=== PATIENT | female | born 1955 | race Caucasian/White ===

== ENCOUNTER 2016-12-08 19:43 | Emergency (ER) | payer OTHER ==
[~2016-12-08] VITALS: Ht 167.6 cm; Wt 83.9 kg
[~2016-12-08 19:43] MED LIST: ALPR0.5T PO; ASPI325T11 PO; ASPI81TA2 PO; ATOR40TA PO; Amoxicillin PO; CARV3.122 PO; CEPH-264 PO; CLOP75TA27 PO; LISI-338 PO; LOSA1TAB16 PO; LOSA50TA6 PO; Metoprolol Tartrate PO; NITR100C6 PO; NYST1000 SWSW; PHEN-318 PO; PRAS10TA4 PO; SIMV40TA3 PO; TICA90TA PO
[2016-12-08 20:42] VITALS: BP 135/81
[2016-12-08 20:58] LABS: BILIRUBIN,URINE MODERATE (NEG); GLUCOSE,URINE NEGATIVE (NEG); NITRITE,URINE NEGATIVE (NEG); PH,URINE 5.5; PROTEIN,URINE 100 mg/dL (NEG-TRACE)
[2016-12-08 21:04] LABS: BACTERIA,URINE 0 /HPF (0-FEW); RBC,URINE TNTC /HPF (0-2); SQUAMOUS EPITHELIAL CELL,UR OCC /LPF
[2016-12-08] MEDS ORDERED: CIPR250T30 PO (22:17)
[2016-12-08] MEDS ORDERED: PHEN100T82 PO (22:17)
[2016-12-08] MEDS ORDERED: CIPROFLOXACIN HCL 250 MG TABLET PO ONE (22:30)
--- NOTE | 2016-12-08 22:41 | ED.ADGEN ---
Past Medical History Past Medical History: Anxiety, High Cholesterol, Hypertension, [place], Migraines, Other Additional Past Medical Histor: ulcer, stemi Past Surgical History: Hip Replacement, Hysterectomy, Other Additional Past Surgical Histo: right ankle, jaw, cardiac stent Alcohol Use: None Drug Use: None Adult General Chief Complaint Chief Complaint: BLOOD IN URINE HPI HPI Patient is a 61 year old woman, history of CAD status post HI, hypertension, hyperlipidemia, who presents to the emergency department with complaint of hematuria, times one day, with concern for UTI. Patient is had a urinary tract infection previously, she states at that time she did have more of a burning sensation, but has had blood and urine previously. She states it started with "looking darker than usual" over the past 2 days, with development of red blood in her urine today. She complains of increased frequency, some urgency, denies any abdominal pain, any back pain, any weakness numbness or tingling. No injuries. States she is having some mild pain in the crease of her thigh, but denies any other symptoms or complaints. No fevers or chills, no respiratory or GI distress. Review of Systems Review of Systems Constitutional: Denies fever or chills. [] Eyes: Denies change in visual acuity. [] HENT: Denies nasal congestion or sore throat. [] Respiratory: Denies cough or shortness of breath. [] Cardiovascular: Denies chest pain or edema. [] GI: Denies abdominal pain, nausea, vomiting, bloody stools or diarrhea. [] : Denies dysuria. Frequency, urgency, and hematuria. Musculoskeletal: Denies back pain or joint pain. [] Integument: Denies rash. [] Neurologic: Denies headache, focal weakness or sensory changes. [] Endocrine: Denies polyuria or polydipsia. [] Lymphatic: Denies swollen glands. [] Psychiatric: Denies depression or anxiety. [] Current Medications Current Medications Current Medications Medications (Trade) Dose Ordered Sig/Luci Start Time Stop Time Status Last Admin Dose Admin Ciprofloxacin (Cipro) 250 mg 1X ONCE 12/08/16 22:30 12/08/16 22:30 DC 12/08/16 22:25 250 MG Allergies Allergies Allergies Coded Allergies Type Severity Reaction Last Updated Verified No Known Drug Allergies 05/25/14 No Physical Exam Physical Exam Constitutional: Well developed, well nourished, no acute distress, non-toxic appearance. [] HENT: Normocephalic, atraumatic, bilateral external ears normal, oropharynx moist, no oral exudates, nose normal. [] Eyes: PERRLA, EOMI, conjunctiva normal, no discharge. [] Neck: Normal range of motion, no tenderness, supple, no stridor. [] Cardiovascular:Heart rate regular rhythm, no murmur , S1, S2, rubs or gallops. [ ] Lungs & Thorax: Bilateral breath sounds clear to auscultation, no wheezing, rhonchi, rales. No chest wall tenderness or crepitus. [] Abdomen: Bowel sounds normal, soft, no tenderness, no rebound, rigidity, no guarding, no masses, no pulsatile masses. [] Skin: Warm, dry, no erythema, no rash. [] Back: No tenderness, no CVA tenderness. [] Extremities: No tenderness, no cyanosis, no clubbing, ROM intact, no edema. [] Neurologic: Alert and oriented X 3, normal motor function, normal sensory function, no focal deficits noted. [] Psychologic: Affect normal, judgement normal, mood normal. [] Current Patient Data Vital Signs Vital Signs Date Time Temp Pulse Resp B/P Pulse Ox O2 Delivery O2 Flow Rate FiO2 12/08/16 20:42 98.0 79 18 96 Room Air 98.0 Lab Values Laboratory Tests Test 12/08/16 20:40 Urine Collection Type Unknown Urine Color Red Urine Clarity Turbid Urine pH 5.5 Urine Specific [place] 1.015 Urine Protein 100mg/dL (NEG-TRACE) Urine Glucose (UA) Negativemg/dL (NEG) Urine Ketones (Stick) 15mg/dL (NEG) Urine Blood Large (NEG) Urine Nitrite Negative (NEG) Urine Bilirubin Moderate (NEG) Urine Urobilinogen Dipstick 1.0mg/dL (0.2 mg/dL) Urine Leukocyte Esterase Moderate (NEG) Urine RBC Tntc/HPF (0-2) Urine WBC 1-4/HPF (0-4) Urine Squamous Epithelial Cells Occ/LPF Urine Bacteria 0/HPF (0-FEW) Urine Mucus Slight/LPF EKG EKG Not indicated. [] Radiology/Procedures Radiology/Procedures Not indicated. [] Course & Med Decision Making Course & Med Decision Making Pertinent Labs and Imaging studies reviewed. (See chart for details) When I evaluate the patient, she stated that she was just waiting for urine to come back, was denying any other symptoms, she states that she was previously treated for UTI, and that "you guys gave me draw antibiotics and I got a letter in the mail and they had to change it 2 weeks later". I discussed the utility of urine cultures with the patient, she states that this time that she is anxious to leave the emergency department, and would like to be treated empirically for a urinary tract infection, states that she can follow with her primary care provider, and will return for concerning symptoms that they develop. Patient does take Effient, and eyes any other areas of bleeding, bruising, or complaints. Urinalysis was negative for bacteria, positive for blood and leuk esterase, patient states that she would like to be treated prophylactically as stated, therefore patient given first dose of ciprofloxacin in the ED, she states that she previously received Keflex, but "it didn't work last time", although when I reviewed her cultures that shows that there was sensitivity to this medication, she states that she does not want to take Keflex again, and therefore Cipro was given, first dose in the ED without issue , given a prescription for 5 days of treatment, along with Pyridium, given clear and detailed return instructions with which she voiced understanding and agreement, to follow-up with her primary care provider for test of cure. Patient voiced understanding and agreement, was discharged home in stable condition. Dragon Disclaimer Dragon Disclaimer This electronic medical record was generated, in whole or in part, using a voice recognition dictation system. Departure Impression: Primary Impression: Urinary tract infection Disposition: HOME, SELF-CARE Condition: IMPROVED Scripts Phenazopyridine Hcl (Pyridium)100 Mg [id number] Mg PO TID PRN PAIN #9 TAB Prov:LORENZO JOHNSON DO 12/08/16 Ciprofloxacin Hcl (Cipro)250 Mg [id number] Mg PO BID #10 TAB Prov:LORENZO JOHNSON DO 12/08/16 Problem Qualifiers Primary Impression: Urinary tract infection Urinary tract infection type: acute cystitis Hematuria presence: with hematuria Qualified Code: N30.01 - Acute cystitis with hematuria LORENZO JOHNSON DO Dec 08, 2016 22:41
[2016-12-21] MEDS ORDERED: ACET-704 PO (12:26)
== END 2016-12-08 22:26 | disposition home or self-care (01) ==
LOC: ER 19:43
DX: N30.01 Acute cystitis with hematuria (principal); I25.2 Old myocardial infarction; I25.10 Atherosclerotic heart disease of native coronary artery without angina pectoris; I10 Essential (primary) hypertension; E78.00 Pure hypercholesterolemia, unspecified; E78.5 Hyperlipidemia, unspecified; F41.9 Anxiety disorder, unspecified; G43.909 Migraine, unspecified, not intractable, without status migrainosus; Z95.5 Presence of coronary angioplasty implant and graft; Z90.710 Acquired absence of both cervix and uterus
CPT/HCPCS: 81001; 87086; 99284

== ENCOUNTER 2016-12-13 02:59 | Inpatient (IN) | payer OTHER ==
[~2016-12-13] VITALS: Ht 167.6 cm; Wt 83.9 kg
[~2016-12-13 02:59] MED LIST changes: +CIPR250T30 PO; +PHEN100T82 PO
[2016-12-13] MEDS: HYDROMORPHONE 2 MG/ML VIAL. IV/SQ PRN ×3 (03:41→04:27)
[2016-12-13 03:46] LABS: BASO # 0.1 x10^3/uL (0.0-0.2); BASO % 1 % (0-3); EOS % 1 % (0-3); HEMOGLOBIN 15.2 g/dL (12.0-15.5); LYMPH # 3.2 x10^3/uL (1.0-4.8); LYMPH % 31 % (24-48); MEAN CORPUSCULAR HEMOGLOBIN 32 pg (25-35); MEAN CORPUSCULAR HGB CONC 33 g/dL (31-37); MEAN CORPUSCULAR VOLUME 95 fL (79-100); MONO % 8 % (0-9); NEUT % 59 % (31-73); PLATELET COUNT 240 x10^3/uL (140-400); RED BLOOD COUNT 4.83 x10^6/uL (3.50-5.40); RED CELL DISTRIBUTION WIDTH 14.1 % (11.5-14.5); WHITE BLOOD COUNT 10.4 x10^3/uL (4.0-11.0)
[2016-12-13 03:52] LABS: BILIRUBIN,URINE LARGE (NEG); GLUCOSE,URINE NEGATIVE (NEG); PH,URINE 5.5; PROTEIN,URINE >=300 mg/dL (NEG-TRACE)
[2016-12-13 03:54] LABS: PROTHROMBIN TIME PATIENT 12.6 SEC (11.7-14.0)
[2016-12-13 03:56] LABS: BACTERIA,URINE 0 /HPF (0-FEW); NITRITE,URINE NEGATIVE (NEG); RBC,URINE TNTC /HPF (0-2); SQUAMOUS EPITHELIAL CELL,UR MOD /LPF; WBC,URINE >40 /HPF (0-4)
[2016-12-13 03:58] LABS: CALCIUM 9.4 mg/dL (8.5-10.1); CREATININE 0.8 mg/dL (0.6-1.0); GFR 73.4; POTASSIUM 3.3 mmol/L (3.5-5.1)
[2016-12-13] MEDS ORDERED: IOHEXOL 300 MG/ML 75 ML VIAL IV ONE (04:00)
[2016-12-13] MEDS ORDERED: IV NORMAL SALINE 1000ML BAG 1,000 ML IV SCH ×2 (04:00→04:56)
[2016-12-13] MEDS ORDERED: ONDANSETRON PF 4 MG/2 ML VIAL. IV ONE ×2 (04:00→05:15)
[2016-12-13] MEDS ORDERED: CONTRAST GIVEN MC PRN (04:00)
[2016-12-13 04:03] LABS: ALBUMIN 3.6 g/dL (3.4-5.0); ALBUMIN/GLOBULIN RATIO 0.9 (1.0-1.7); TOTAL BILIRUBIN 0.2 mg/dL (0.2-1.0); TOTAL PROTEIN 7.5 g/dL (6.4-8.2)
--- NOTE | 2016-12-13 04:40 | RAD ---
INDICATION: Abdomen pain. COMPARISON: July 16, 2015 TECHNIQUE: Axial CT images obtained through the abdomen and pelvis. Intravenous contrast was utilized. One or more of the following individualized dose reduction techniques were utilized for this examination: 1. Automated exposure control; 2. Adjustment of the mA and/or kV according to patient size; 3. Use of iterative reconstruction technique. FINDINGS: There is some cystic changes at the lung bases. Coronary artery calcific atherosclerosis partially seen. Severe calcific atherosclerosis with ectasia infrarenal abdominal aorta. No intrahepatic bile duct dilation. Multiple low-attenuation lesions of liver with largest in right lobe measuring 26 millimeters and likely cystic. No peripancreatic edema. Spleen unremarkable. Multiple low-attenuation lesions of bilateral kidneys measuring up to 33 millimeters. The larger ones have the appearance of cysts but some are too small to characterize on this exam. Right-sided hydronephrosis and proximal hydroureter with 4 millimeter right mid ureter stone No definite evidence of small bowel obstruction. Bladder largely decompressed. Postoperative changes left hip with arthroplasty. Appendix does not appear grossly inflamed. Degenerative changes of spine. IMPRESSION: Right-sided hydronephrosis with right ureter stone. There is also some enhancement of the urothelium on the right which could be seen with a region of inflammation. Multiple low-attenuation lesions of the liver and kidneys. The largest ones have the appearance of cysts but some are too small to characterize. Calcific atherosclerosis. Cystic changes at lung bases could be from chronic lung disease Electronically signed by: Carmelo Palencia (Dec 13, 2016 04:38:45)
--- NOTE | 2016-12-13 04:47 | PHYS DOC ---
Past Medical History Past Medical History: Anxiety, High Cholesterol, Hypertension, [place], Migraines, Other Additional Past Medical Histor: ulcer, stemi Past Surgical History: Hip Replacement, Hysterectomy, Other Additional Past Surgical Histo: right ankle, jaw, cardiac stent Alcohol Use: None Drug Use: None Adult General Chief Complaint Chief Complaint: FLANK PAIN HPI HPI Patient is a 61 year old female who presents with complaint of severe right- sided flank pain. The patient states that her pain has been worsening over the past 4-5 days. Patient states that it became severe earlier this morning. Patient currently rates her pain as 10 out of 10. Patient states that she started passing gross blood in her urine. Patient denies any fevers. Patient was diagnosed with urinary tract infection 4 days ago and started on Cipro. Patient states that despite starting on this medication her symptoms have been worsening. Patient follows a Dr. Alves for primary care. The patient stated that her primary doctor had scheduled her to have a CT scan this Monday, however patient states that her symptoms are too severe to wait until Monday. Review of Systems Review of Systems Constitutional: Denies fever or chills [] Eyes: Denies change in visual acuity, redness, or eye pain [] HENT: Denies nasal congestion or sore throat [] Respiratory: Denies cough or shortness of breath [] Cardiovascular: No additional information not addressed in HPI [] GI: Nausea, vomiting, denies abdominal pain, bloody stools or diarrhea [] : Hematuria [] Musculoskeletal: Right flank pain [] Integument: Denies rash or skin lesions [] Neurologic: Denies headache, focal weakness or sensory changes [] Endocrine: Denies polyuria or polydipsia [] Current Medications Current Medications Current Medications Medications (Trade) Dose Ordered Sig/[facility] Start Time Stop Time Status Last Admin Dose Admin Hydromorphone HCl 1 mg 1 mg PRN Q15MIN PRN 12/13/16 03:30 12/14/16 03:29 12/13/16 04:27 1 MG Info (Do NOT chart on this entry -- for MONITORING) 1 each PRN DAILY PRN 12/13/16 04:00 12/15/16 03:59 Iohexol (Omnipaque 300 Mg/ml) 75 ml 1X ONCE 12/13/16 04:00 12/13/16 04:01 DC 12/13/16 04:10 75 ML Ondansetron HCl (Zofran) 4 mg 1X ONCE 12/13/16 05:15 12/13/16 05:16 Sodium Chloride (Iv Sodium Chloride 0.9% 1000ml Bag) 1,000 ml @ 1,000 mls/hr Q1H 12/13/16 04:00 12/13/16 04:59 12/13/16 03:41 1,000 MLS/HR Allergies Allergies Allergies Coded Allergies Type Severity Reaction Last Updated Verified No Known Drug Allergies 05/25/14 No Physical Exam Physical Exam Constitutional: Alert, afebrile, appears in severe discomfort. [] HENT: Normocephalic, atraumatic, bilateral external ears normal, oropharynx moist, no oral exudates, nose normal. [] Eyes: PERRLA, EOMI, conjunctiva normal, no discharge. [] Neck: Normal range of motion, no tenderness, supple, no stridor. [] Cardiovascular: Tachycardia, regular rhythm, no murmur [] Lungs & Thorax: Bilateral breath sounds clear to auscultation [] Abdomen: Bowel sounds normal, soft, no tenderness, no masses, no pulsatile masses. [] Skin: Warm, dry, no erythema, no rash. [] Back: No midline tenderness, right CVA tenderness to palpation, no flank ecchymosis. [] Extremities: No tenderness, no cyanosis, no clubbing, ROM intact, no edema. [] Neurologic: Alert and oriented X 3, normal motor function, normal sensory function, no focal deficits noted. [] Current Patient Data Vital Signs Vital Signs Date Time Temp Pulse Resp B/P Pulse Ox O2 Delivery O2 Flow Rate FiO2 12/13/16 04:27 14 92 Room Air 12/13/16 03:07 98.1 93 201/76 98.1 Lab Values Laboratory Tests Test 12/13/16 03:08 White Blood Count 10.4x10^3/uL (4.0-11.0) Red Blood Count 4.83x10^6/uL (3.50-5.40) Hemoglobin 15.2g/dL (12.0-15.5) Hematocrit 46.0% (36.0-47.0) Mean Corpuscular Volume 95fL (79-100) Mean Corpuscular Hemoglobin 32pg (25-35) Mean Corpuscular Hemoglobin Concent 33g/dL (31-37) Red Cell Distribution Width 14.1% (11.5-14.5) Platelet Count 240x10^3/uL (140-400) Neutrophils (%) (Auto) 59% (31-73) Lymphocytes (%) (Auto) 31% (24-48) Monocytes (%) (Auto) 8% (0-9) Eosinophils (%) (Auto) 1% (0-3) Basophils (%) (Auto) 1% (0-3) Neutrophils # (Auto) 6.1x10^3uL (1.8-7.7) Lymphocytes # (Auto) 3.2x10^3/uL (1.0-4.8) Monocytes # (Auto) 0.9x10^3/uL (0.0-1.1) Eosinophils # (Auto) 0.1x10^3/uL (0.0-0.7) Basophils # (Auto) 0.1x10^3/uL (0.0-0.2) Prothrombin Time 12.6SEC (11.7-14.0) Prothrombin Time INR 1.0 (0.8-1.1) PTT 30SEC (24-38) Urine Collection Type Unknown Urine Color Red Urine Clarity Cloudy Urine pH 5.5 Urine Specific [place] 1.025 Urine Protein >=300mg/dL (NEG-TRACE) Urine Glucose (UA) Negativemg/dL (NEG) Urine Ketones (Stick) 15mg/dL (NEG) Urine Blood Large (NEG) Urine Nitrite Negative (NEG) Urine Bilirubin Large (NEG) Urine Urobilinogen Dipstick 1.0mg/dL (0.2 mg/dL) Urine Leukocyte Esterase Moderate (NEG) Urine RBC Tntc/HPF (0-2) Urine WBC >40/HPF (0-4) Urine Squamous Epithelial Cells Mod/LPF Urine Bacteria 0/HPF (0-FEW) Urine Mucus Slight/LPF Sodium Level 145mmol/L (136-145) Potassium Level 3.3mmol/L (3.5-5.1) L Chloride Level 107mmol/L (98-107) Carbon Dioxide Level 31mmol/L (21-32) Anion Gap 7 (6-14) Blood Urea Nitrogen 11mg/dL (7-20) Creatinine 0.8mg/dL (0.6-1.0) Estimated GFR (Cockcroft-Gault) 73.4 BUN/Creatinine Ratio 14 (6-20) Glucose Level 112mg/dL (70-99) H Calcium Level 9.4mg/dL (8.5-10.1) Total Bilirubin 0.2mg/dL (0.2-1.0) Aspartate Amino Transferase (AST) 15U/L (15-37) Alanine Aminotransferase (ALT) 22U/L (14-59) Alkaline Phosphatase 55U/L (46-116) Total Protein 7.5g/dL (6.4-8.2) Albumin 3.6g/dL (3.4-5.0) Albumin/Globulin Ratio 0.9 (1.0-1.7) L Laboratory Tests 12/13/16 03:08 Laboratory Tests 12/13/16 03:08 EKG EKG Not performed [] Radiology/Procedures Radiology/Procedures [facility] [address] [place] [address] IMAGING REPORT Signed PATIENT: TRIP ROCHA ACCOUNT: [id number] : 1955 LOCATION: ER AGE: 61 SEX: F EXAM STATUS: REG ER ORD. PHYSICIAN: JESS MARTINEZ MD REASON: hematuria, right flank pain PROCEDURE: ABD PELV W/ IV CONTRAST ONLY INDICATION: Abdomen pain. COMPARISON: July 16, 2015 TECHNIQUE: Axial CT images obtained through the abdomen and pelvis. Intravenous contrast was utilized. One or more of the following individualized dose reduction techniques were utilized for this examination: 1. Automated exposure control; 2. Adjustment of the mA and/or kV according to patient size; 3. Use of iterative reconstruction technique. FINDINGS: There is some cystic changes at the lung bases. Coronary artery calcific atherosclerosis partially seen. Severe calcific atherosclerosis with ectasia infrarenal abdominal aorta. No intrahepatic bile duct dilation. Multiple low-attenuation lesions of liver with largest in right lobe measuring 26 millimeters and likely cystic. No peripancreatic edema. Spleen unremarkable. Multiple low-attenuation lesions of bilateral kidneys measuring up to 33 millimeters. The larger ones have the appearance of cysts but some are too small to characterize on this exam. Right-sided hydronephrosis and proximal hydroureter with 4 millimeter right mid ureter stone No definite evidence of small bowel obstruction. Bladder largely decompressed. Postoperative changes left hip with arthroplasty. Appendix does not appear grossly inflamed. Degenerative changes of spine. IMPRESSION: Right-sided hydronephrosis with right ureter stone. There is also some enhancement of the urothelium on the right which could be seen with a region of inflammation. Multiple low-attenuation lesions of the liver and kidneys. The largest ones have the appearance of cysts but some are too small to characterize. Calcific atherosclerosis. Cystic changes at lung bases could be from chronic lung disease Electronically signed by: Eveline Alves (Dec 13, 2016 04:38:45) DICTATED and SIGNED BY: EVELINE ALVES MD DATE: 12/13/16 0438 CC: JESS MARTINEZ MD; VIANCA ALVES MD ~ [] Course & Med Decision Making Course & Med Decision Making Pertinent Labs and Imaging studies reviewed. (See chart for details) Patient was given multiple doses of Dilaudid as well as IV fluids and Zofran. Despite treatment, the patient continues to have severe pain and continues to have vomiting. Patient's CT does show a right mid ureteral stone that is causing hydronephrosis. Due to uncontrolled symptoms and presence of urinary tract infection, the patient will need to be admitted to the hospital for continued treatment. I spoke with Dr. Alves who accepted care patient in hospital. A consult was placed to Dr. Reich to follow with patient in hospital. Dragon Disclaimer Dragon Disclaimer This electronic medical record was generated, in whole or in part, using a voice recognition dictation system. Departure Departure Impression: Primary Impression: Right ureteral stone Additional Impressions: Urinary tract infection Intractable pain Disposition: 09 ADMITTED INPATIENT Admitting Physician: Vianca Alves Condition: GUARDED Referrals: VIANCA ALVES MD (PCP) Problem Qualifiers Additional Impressions: Urinary tract infection Urinary tract infection type: site unspecified Hematuria presence: with hematuria Qualified Code: N39.0 - Urinary tract infection, site not specified JESS MARTINEZ MD Dec 13, 2016 04:47
[2016-12-13] MEDS ORDERED: ACETAMINOPHEN 325 MG TABLET. PO PRN (05:00)
[2016-12-13] MEDS ORDERED: FENTANYL PF 100 MCG/2 ML VIAL. IV PRN (05:00)
--- NOTE | 2016-12-13 05:20 | ACF ---
Admit Criteria Forms Admit Criteria Forms Admit Criteria Forms RENAL COLIC AND KIDNEY STONES Clinical Indications for Admission to Inpatient Care ( Place 'X' for any and all applicable criteria): Admission is indicated for ANY ONE of the following (1)(2)(3)(4): [X]I. Inpatient admission required rather than observation care (Also use Renal Colic and Kidney Stones: Observation Care Criteria as appropriate) because of ANY ONE of the following: [X]a) Severe pain requiring acute inpatient management [X]b) Urinary tract infection identified [ ]c) Vomiting that is severe or persistent [ ]d) IV fluid required rather than oral rehydration to replace significant ongoing (eg, for greater than 24 hours) losses (greater than 200 mL/hr or 3 L/m2 per day) [ ]e) Percutaneous or open drainage (eg, abscess, biliary tract) procedures [ ]f) Other condition, treatment or monitoring requiring inpatient admission [ ]II. Impending acute renal failure [ ]III. Bilateral obstruction [ ]IV. Single kidney with obstruction [ ]V. Transplanted kidney with obstruction [ ]. Possible open surgical procedure needed (eg, pyonephrosis, stone removal not amendable to other means) [ ]VII. Hemodynamic instability Extended stay beyond goal length of stay may be needed for(2)(3)(31): [ ]a) Failed initial stone removal (32) [ ]b) Pyonephrosis [ ]c) Obstructive uropathy with urinary tract infection [ ]d) Procedure complications [ ]e) Comorbidities (22) The original [employer] content created by [employer] has been revised. The portions of the content which have been revised are identified through the use of italic text or in bold, and [facility] has neither reviewed nor approved the modified material. All other unmodified content is copyright [facility]. Please see references footnoted in the original [employer] edition 2016 SHELLY VINES Dec 13, 2016 05:20
[2016-12-13] MEDS ORDERED: CEFTRIAXONE 1GM IVPB FOR OMNI 50 ML IV ONE (05:30)
[2016-12-13 07:00] VITALS: BP 134/81
--- NOTE | 2016-12-13 07:52 | PDOC ---
Provider Note Provider Note [id number] VIANCA ALVES MD Dec 13, 2016 07:52
[2016-12-13] MEDS: PRASUGREL 10 MG TABLET. PO SCH (08:00)
[2016-12-13] MEDS: CARVEDILOL 3.125 MG TABLET PO SCH ×2 (08:00→17:37)
--- NOTE | 2016-12-13 08:58 | HP ---
ADMIT DATE: 12/13/2016 CHIEF COMPLAINT: Flank pain. HISTORY OF PRESENT ILLNESS: A 61-year-old white female who had coronary artery stents placed about 3 months ago at [place] and has been doing well until she developed painless gross hematuria about 3 or 4 days prior to admission. She was seen in the ER once and was placed on antibiotics, but hematuria persisted. She was seen in the office the day prior to admission and treatment was continued and a CT angiogram of her kidneys was scheduled but came into the ER with severe abrupt onset of right flank pain. She was found to have a CT finding of mid right ureteral stone, 4 mm or so in size with moderate right hydronephrosis. She has gotten IV pain medication overnight and her pain seems to be improved at this time. PAST MEDICAL HISTORY: Two stents in place. MEDICATIONS: She is on Effient and aspirin as well as other cardiac meds. PAST SURGICAL HISTORY: Total abdominal hysterectomy, hip replacement, and cholecystectomy. SOCIAL HISTORY: Quit smoking some months ago after her heart disease was found, nondrinker, . FAMILY HISTORY: Unremarkable. REVIEW OF SYSTEMS: No other known problems. OBJECTIVE: ENT: All within normal limits. NECK: No masses, nodes, or bruits. LUNGS: Clear. CARDIOVASCULAR: Regular rate. No irregular beat or murmur or tachycardia. BREASTS: Not examined. ABDOMEN: Soft, benign, nontender. BACK: Tender to palpation and percussion over the right CVA, but not the left side. No masses are felt. EXTREMITIES: Decreased pedal pulses. No joint or skin lesions or nail bed findings. NEUROLOGIC: Physiologic. GENITOURINARY AND RECTAL: Deferred. IMPRESSION: Right midureteral stone with secondary hydronephrosis and hematuria aggravated by antiplatelet drugs, aspirin and Effient for coronary artery disease and stent placement. PLAN: IV hydration, Flomax, urologic consultation, and supportive care. Pain is better now and it is possible that the stone has moved and even broken up and may be lessening the symptoms. VIANCA ALVES MD DR: JOHN/teodoro JOB#: [id number] / [id number]
[2016-12-13] MEDS: TAMSULOSIN 0.4 MG CAP.ER.24H. PO SCH ×2 (09:00→10:26)
[2016-12-13] MEDS: ASPIRIN 81 MG TAB.CHEW PO SCH (09:00)
[2016-12-13] MEDS: LISINOPRIL 5 MG TABLET. PO SCH (09:00)
[2016-12-13] MEDS ORDERED: ATORVASTATIN CALCIUM 40 MG TABLET. PO SCH (09:00)
[2016-12-13] MEDS ORDERED: ASPI81TA9 PO (09:28)
--- NOTE | 2016-12-13 09:53 | EKG ---
[facility] [address] [place] [address] Test Date: 2016-12-13 Test Time: 03:20:21 Pat Name: TRIP ROCHA Department: Room: [facility] Gender: F Obstetrical Tech: : 1955 Requested By: VIANCA ALVES Order Number: [id number] Reading MD: Liat Olivera Measurements Intervals [place] Rate: 86 P: 52 [place]: 148 QRS: 15 QRSD: 92 T: 92 QT: 348 QTc: 419 Interpretive Statements SINUS RHYTHM T ABNORMALITY IN ANTEROLATERAL LEADS ABNORMAL ECG Electronically Signed On 12-17-2016 19:39:13 [employer] by Liat Olviera
--- NOTE | 2016-12-13 10:18 | PDOC ---
Provider Note Provider Note Urology: Consult dictated 4mm Right ureteral calculus Plan: Medical expulsive treatment, IV hydration and Flomax KUB in AM Thanks MOHSEN VANN DO Dec 13, 2016 10:18
[2016-12-13] MEDS: POTASSIUM CL 20MEQ D5-0.45NACL 1,000 ML IV SCH ×2 (10:27→17:32)
[2016-12-13 11:00] VITALS: BP 103/43
[2016-12-13 11:48] VITALS: BP 103/43
[2016-12-13 15:00] VITALS: BP 88/56
[2016-12-13] MEDS ORDERED: BUTALB/APAP/CAFEIN 50/325/40MG TABLET. PO PRN (19:00)
[2016-12-13 19:25] VITALS: BP 107/46
[2016-12-13] MEDS: ATORVASTATIN CALCIUM 40 MG TABLET. PO SCH (19:55)
[2016-12-13] MEDS: ONDANSETRON PF 4 MG/2 ML VIAL. IV PRN (19:55)
[2016-12-13] MEDS: KETOROLAC TROMETHAMINE 30 MG/ML SYRINGE. IV PRN (21:46)
[2016-12-13 23:25] VITALS: BP 114/60
[2016-12-14] MEDS: POTASSIUM CL 20MEQ D5-0.45NACL 1,000 ML IV SCH ×6 (01:23→21:57)
[2016-12-14] MEDS: HYDROMORPHONE 2 MG/ML VIAL. IV PRN ×2 (02:25→05:23)
[2016-12-14] MEDS: ONDANSETRON PF 4 MG/2 ML VIAL. IV PRN (02:53)
[2016-12-14 03:30] VITALS: BP 141/83
[2016-12-14] MEDS: KETOROLAC TROMETHAMINE 30 MG/ML SYRINGE. IV PRN ×3 (03:42→17:51)
--- NOTE | 2016-12-14 03:42 | CONS ---
DATE OF CONSULTATION: 12/13/2016 CHIEF COMPLAINT: Acute right flank pain, right ureteral calculus (4 mm). HISTORY OF PRESENT ILLNESS: A 61-year-old female admitted through the Emergency Room with acute right flank pain. She has had a history of some intermittent gross hematuria. She is on blood thinners including Effient and aspirin. The patient denies previous history of kidney stones. PAST MEDICAL HISTORY: Includes coronary artery disease. She recently had coronary artery stents placed. ALLERGIES: No known drug allergies. PAST SURGICAL HISTORY: The patient had hip replacement on the left. She has had hysterectomy, right ankle surgery, surgery on her jaw and more recently cardiac stents placed. The patient states that she has some intermittent blood in her urine for several days. She also was treated for urinary tract infection on an outpatient basis. REVIEW OF SYSTEMS: A 14-point review of systems performed, most significant as per HPI, as stated above. CURRENT MEDICATIONS: Reviewed. PHYSICAL EXAMINATION: GENERAL DESCRIPTION: A 61-year-old female. She is resting comfortably at this time with the benefit of IV hydration and analgesia. VITAL SIGNS: Stable. ABDOMEN: Soft, mild right flank discomfort to palpation, radiating to the right pelvis. The left flank was normal to palpation. There are no abdominal masses, guarding, or rigidity. No suprapubic tenderness. EXTREMITIES: Good range of motion. Negative for cyanosis or edema. LABORATORY DATA: The patient's hemoglobin 15.2, hematocrit 46.0, white blood cell count 10.4. Electrolytes shows potassium low at 3.3, her BUN is 11, creatinine 0.8, glucose 112. Urinalysis, heme colored, cloudy, nitrite negative, large bilirubin, moderate leukocytes, too numerous to count red blood cells, greater than 40 white blood cells, no significant bacteria. X-RAY STUDIES: CT scan of the abdomen and pelvis with IV contrast revealed [id number] right-sided hydronephrosis, dilated proximal hydroureter with a 4-mm calculus located about the level of the iliac crest. No other renal abnormalities. IMPRESSION: 1. Acute right ureteral colic - improved. 2. A 4-mm calculus, lower right ureter. PLANS: 1. IV hydration. Orders have been written. 2. Flomax has been started. 3. I think this stone should pass with medical therapy. We will monitor her progress. I told the patient if did not pass spontaneously, that , we would perform ureteroscopy, stone extraction. She appears to understand and is agreeable. MOHSEN VANN DO DR: YARELI/teodoro JOB#: [id number] / [id number]
[2016-12-14] MEDS: ALPRAZOLAM 0.5 MG TABLET PO PRN (03:48)
[2016-12-14 04:09] LABS: BASO % 0 % (0-3); EOS % 2 % (0-3); HEMATOCRIT 41.5 % (36.0-47.0); HEMOGLOBIN 13.4 g/dL (12.0-15.5); LYMPH # 2.7 x10^3/uL (1.0-4.8); LYMPH % 33 % (24-48); MEAN CORPUSCULAR HEMOGLOBIN 31 pg (25-35); MEAN CORPUSCULAR HGB CONC 32 g/dL (31-37); MEAN CORPUSCULAR VOLUME 96 fL (79-100); MONO % 10 % (0-9); NEUT % 56 % (31-73); PLATELET COUNT 202 x10^3/uL (140-400); RED BLOOD COUNT 4.31 x10^6/uL (3.50-5.40); RED CELL DISTRIBUTION WIDTH 13.9 % (11.5-14.5); WHITE BLOOD COUNT 8.3 x10^3/uL (4.0-11.0)
[2016-12-14 04:30] LABS: CALCIUM 8.5 mg/dL (8.5-10.1); CREATININE 0.8 mg/dL (0.6-1.0); GFR 73.4
[2016-12-14 07:00] VITALS: BP 135/51
[2016-12-14] MEDS: PRASUGREL 10 MG TABLET. PO SCH ×3 (08:00→12:06)
[2016-12-14] MEDS ORDERED: HYDROMORPHONE 2 MG/ML VIAL. IV PRN (08:00)
--- NOTE | 2016-12-14 08:00 | PDOC ---
Provider Note Provider Note still has Rcva pain , less now- R CVA and RLQ not tender now- very anxious re pain/nausea- kub pending , cont iv hydration, add loraz re nausea/sedation VIANCA ALVES MD Dec 14, 2016 08:00
[2016-12-14] MEDS: ASPIRIN 81 MG TAB.CHEW PO SCH ×3 (08:39→11:21)
[2016-12-14] MEDS: TAMSULOSIN 0.4 MG CAP.ER.24H. PO SCH (08:40)
[2016-12-14] MEDS: LISINOPRIL 5 MG TABLET. PO SCH (08:40)
[2016-12-14] MEDS: CARVEDILOL 3.125 MG TABLET PO SCH ×2 (08:41→17:00)
[2016-12-14] MEDS: CEFTRIAXONE SODIUM 1 GM in IV NORMAL SALINE 50ML 50 ML IV SCH (08:52)
--- NOTE | 2016-12-14 09:33 | RAD ---
EXAM: Abdomen one view. HISTORY: Right ureteral calculus. COMPARISON: CT 12/13/2016. FINDINGS: A frontal view of the abdomen is obtained. The right mid ureteral calculus seen on prior CT is not well-demonstrated. There is a right triangular calcification in the right hemipelvis which may be indicated for progress of the calculus or another density. There are postsurgical changes in both adnexa and surgical clips in both lower quadrants. There are no distended small bowel loops. There is gas distally. Stool throughout the colon is consistent with constipation. A left total hip arthroplasty is noted. IMPRESSION: 1. The right ureteral calculus is not clearly seen by radiographs. It may now be within the right distal ureter. Correlate for persistent symptoms. 2. Correlate for constipation.
[2016-12-14 11:00] VITALS: BP 136/91
[2016-12-14] MEDS: PROCHLORPERAZINE 10 MG/2 ML VIAL. IV PRN (11:21)
--- NOTE | 2016-12-14 13:27 | PDOC ---
Provider Note Provider Note Urology: continues to have right flank pain and hematuria (Effient) KUB- calculus not easily seen Plan: patient on schedule for tomorrow, Cysto, R retrograde, Ureteroscopy-stone extraction, possible stent Hold Effient Laxatives today MOHSEN VANN DO Dec 14, 2016 13:27
[2016-12-14 15:00] VITALS: BP 134/85
[2016-12-14] MEDS ORDERED: POLYETHYLENE GLYCOL 3350 17 GM PACKET. PO PRN (17:00)
[2016-12-14] MEDS: LORAZEPAM 2 MG/ML VIAL IV PRN (17:52)
[2016-12-14 19:00] VITALS: BP 118/76
[2016-12-14] MEDS: ATORVASTATIN CALCIUM 40 MG TABLET. PO SCH (21:05)
[2016-12-14 23:00] VITALS: BP 134/60
[2016-12-15] VITALS (7 sets, daily range): BP systolic 123–144; BP diastolic 62–79
[2016-12-15] MEDS: PROCHLORPERAZINE 10 MG/2 ML VIAL. IV PRN ×4 (01:32→19:38)
[2016-12-15] MEDS: KETOROLAC TROMETHAMINE 30 MG/ML SYRINGE. IV PRN ×4 (01:32→19:38)
[2016-12-15] MEDS: LORAZEPAM 2 MG/ML VIAL IV PRN ×4 (01:32→19:37)
[2016-12-15] MEDS: POTASSIUM CL 20MEQ D5-0.45NACL 1,000 ML IV SCH ×2 (05:13→11:59)
[2016-12-15] MEDS: CEFTRIAXONE SODIUM 1 GM in IV NORMAL SALINE 50ML 50 ML IV SCH (05:14)
--- NOTE | 2016-12-15 06:09 | PDOC ---
Provider Note Provider Note Urology: Patient scheduled for Cystoscopy left retrograde, ureteroscopy stone extraction , possible left ureteral stent placement. Scheduled for about 1:00 today. MOHSEN VANN DO Dec 15, 2016 06:09
[2016-12-15] MEDS ORDERED: PROCHLORPERAZINE 10 MG/2 ML VIAL. IV PRN (07:00)
[2016-12-15] MEDS ORDERED: HYDROMORPHONE 2 MG/ML VIAL. IV PRN (07:00)
[2016-12-15] MEDS ORDERED: ONDANSETRON PF 4 MG/2 ML VIAL. IV PRN (07:00)
[2016-12-15] MEDS ORDERED: FENTANYL PF 100 MCG/2 ML VIAL. IV PRN ×2 (07:00)
[2016-12-15] MEDS ORDERED: IV RINGERS,LACTATED 1000ML 1,000 ML IV SCH (07:00)
[2016-12-15] MEDS ORDERED: MORPHINE SULFATE 2 MG/ML DISP.SYRIN. IV PRN (07:00)
[2016-12-15] MEDS ORDERED: LIDOCAINE 1% 1 ML SYRINGE. ID PRN (07:00)
--- NOTE | 2016-12-15 07:18 | PDOC ---
Provider Note Provider Note vss, no temp, pain still RLQ, stone likely in UVJ- for cysto today, home after VIANCA ALVES MD Dec 15, 2016 07:18
--- NOTE | 2016-12-15 07:19 | DISCH ---
DISCHARGE INSTRUCTIONS Condition on Discharge Condition on Discharge: Stable Activity After Discharge Activity Instructions for Disc: No restrictions Diet after Discharge Diet after Discharge: Low Sodium 4 gm Follow-Up Follow up with: as scheduled VIANCA ALVES MD Dec 15, 2016 07:19
[2016-12-15] MEDS: PRASUGREL 10 MG TABLET. PO SCH (08:00)
[2016-12-15] MEDS: TAMSULOSIN 0.4 MG CAP.ER.24H. PO SCH (08:20)
[2016-12-15] MEDS: LISINOPRIL 5 MG TABLET. PO SCH (08:20)
[2016-12-15] MEDS: CARVEDILOL 3.125 MG TABLET PO SCH ×2 (08:21→17:55)
[2016-12-15] MEDS: ASPIRIN 81 MG TAB.CHEW PO SCH (08:28)
[2016-12-15] MEDS ORDERED: IOHEXOL 300 MG/ML 50 ML VIAL. IV ONE (13:30)
--- NOTE | 2016-12-15 14:41 | PDOC ---
BRIEF OPERATIVE NOTE Date: Dec 15, 2016 Pre-Op Diagnosis Right flank pain, right ureteral calculus Post-Op Diagnosis same, impacted right ureteral calculus Procedure Performed Cystoscopy right retrograde, rigid ureteroscopy, holmium laser lithotripsy partial stone extraction, placement of ureteral stent. Surgeon Damir Anesthesia Type: General Blood Loss Minimal Specimens Obtained partial stone sent for stone analysis Findings Impacted right ureteral calculus, with ureteral edema Complications tolerated well, ureteral stent placed Additional Remarks will have some hematuria due to Effient MOHSEN VANN DO Dec 15, 2016 14:41
[2016-12-15] MEDS: POTASSIUM CL 20MEQ-0.45% NACL 1,000 ML IV SCH (15:31)
[2016-12-15] MEDS: ALPRAZOLAM 0.5 MG TABLET PO PRN (17:57)
[2016-12-15] MEDS: PHENAZOPYRIDINE 200 MG TABLET. PO PRN (19:37)
[2016-12-15] MEDS: ATORVASTATIN CALCIUM 40 MG TABLET. PO SCH (19:37)
--- NOTE | 2016-12-15 20:31 | OP ---
DATE OF SURGERY: 12/15/2016 PREOPERATIVE DIAGNOSES: Right flank pain, right ureteral calculus. POSTOPERATIVE DIAGNOSES: Right flank pain, right ureteral calculus. PROCEDURE: Cystoscopy, right retrograde pyelogram, ureteroscopy with holmium laser lithotripsy, partial stone extraction, placement of indwelling right ureteral stent. SURGEON: Mohsen Vann DO ANESTHESIA: General. INDICATIONS AND JUDGMENT: This is a 61-year-old female who was admitted with acute right flank pain, CT scan revealed a 4- to 5-mm calculus in the right ureter. She was placed on IV hydration and analgesia, but failed to pass the stone spontaneously, though it did migrate down into the pelvis. It was felt that she would benefit from ureteroscopy, stone extraction, possible stent placement. The procedure was explained to the patient, she appeared to understand and was agreeable. OPERATION AND PROCEDURE: The patient had IV antibiotics on board. Therefore, she was taken to the operating room and placed on the operating room table, given a general anesthetic and then placed in a dorsolithotomy position, since we do not have a cystoscopy table. Perineum was prepped and draped in sterile fashion. A C-arm was moved into position for the purpose of fluoroscopy. Cystoscopy was performed. The bladder was examined. There was no calculi within the bladder. She has a moderate cystocele. The right ureteral orifice was identified, it was cannulated with an 8-Georgian cone-tip ureteral catheter. Contrast was injected. The calculus was seen in the ureter approximately 3-4 cm above the right ureterovesical junction. The obstruction was low grade in nature. The contrast drained pretty readily. I then passed a 0.035 Glidewire up the right ureteral orifice, past the stone with some difficulty. Following that, I balloon-dilated the ureteral orifice for 3 minutes. I then advanced the rigid Puente ureteroscope up the right ureter alongside the Glidewire. The stone was encountered. I attempted to remove it, but it was too large to remove intact. I was therefore forced to utilize our inhouse holmium laser, which is of poor quality. I advanced the laser fiber through the working channel of the ureteroscope. The guiding red light is so bright that it obscures the stone, it is hard to see the stone when you perform the laser. I was able to laser about one-third to one-half of the stone and remove it and that portion was sent to lab. I was unable to laser the remaining portion of the stone due to the extreme red guiding light, which prevented me from seeing the stone satisfactorily and the fact that she has been on Effient and now she is having some bleeding, which made it difficult to see that stone as well. Therefore, it was felt that the best option at this point was to place an indwelling right ureteral stent and come back another day. I advanced a 4.8 x 24 cm double-J ureteral stent over the Glidewire past the stone and up into the renal pelvis. Positioning appeared to be satisfactory; therefore, the wire was removed leaving the stent in place. Due to the heme-colored urine, I left a Cuellar catheter in place to dependent drainage bag. Plans will be to keep the patient overnight, remove the Cuellar catheter in the morning, allow her to go home tomorrow, bring her back in about 1 week to remove the rest of the stone. MOHSEN VANN DO DR: YARELI/teodoro JOB#: [id number] / [id number]
[2016-12-16] MEDS: POTASSIUM CL 20MEQ-0.45% NACL 1,000 ML IV SCH ×2 (00:02→07:00)
[2016-12-16] MEDS: LORAZEPAM 2 MG/ML VIAL IV PRN (00:04)
[2016-12-16] MEDS: KETOROLAC TROMETHAMINE 30 MG/ML SYRINGE. IV PRN ×2 (00:04→06:19)
[2016-12-16] MEDS: PROCHLORPERAZINE 10 MG/2 ML VIAL. IV PRN ×2 (00:05→06:19)
[2016-12-16 03:16] VITALS: BP 150/85
[2016-12-16] MEDS: CEFTRIAXONE SODIUM 1 GM in IV NORMAL SALINE 50ML 50 ML IV SCH (06:09)
[2016-12-16] MEDS: PHENAZOPYRIDINE 200 MG TABLET. PO PRN ×2 (06:19→08:51)
[2016-12-16 07:00] VITALS: BP 134/65
--- NOTE | 2016-12-16 07:58 | PDOC ---
Provider Note Provider Note [id number] VIANCA ALVES MD Dec 16, 2016 07:58
[2016-12-16] MEDS: PRASUGREL 10 MG TABLET. PO SCH (08:27)
[2016-12-16] MEDS: ASPIRIN 81 MG TAB.CHEW PO SCH (08:27)
[2016-12-16 08:28] VITALS: BP 134/65
[2016-12-16] MEDS: CARVEDILOL 3.125 MG TABLET PO SCH (08:28)
[2016-12-16] MEDS: LISINOPRIL 5 MG TABLET. PO SCH (08:28)
--- NOTE | 2016-12-16 13:01 | PDOC ---
Provider Note Provider Note Urology: Home today with right ureteral stent Rx's June Lozano 5 Will schedule Ureteroscopy in about 10 days MOHSEN VANN DO Dec 16, 2016 13:01
--- NOTE | 2016-12-16 19:46 | DS ---
DATE OF DISCHARGE: 12/16/2016 HOSPITAL SUMMARY: A 61-year-old white female came in with flank pain and hematuria, was suspicious for a stone. CT scan showed a right mid ureteral stone with secondary hydronephrosis, stone being about 4 mm in size. Urine culture had no growth. Hemoglobin was 15.2 on admission and 13.4 the next day. Chemistry profile unremarkable and urine showed protein and blood. She was given IV fluids, Flomax and IV pain medications, but failed, has shown improvement in her stones. Dr. Reich performed cystoscopy, stone extraction and ureteral stent placement and part of the stone was sent for analysis. At this time, she is stable, vital signs are normal, no fever and able to be discharged and followed as an outpatient. FINAL DIAGNOSIS: Right ureteral stone with secondary hydronephrosis. OPERATIONS AND PROCEDURES: Ureteral stone extraction and stent placement. COMPLICATIONS: None. CONSULTATIONS: Dr. Reich. DISPOSITION: Home meds remain the same plus any meds per Dr. Reich. Follow up with Dr. Reich for ____ removal in 1-2 weeks and I will see her on an as needed basis. PROGNOSIS: Good. VIANCA ALVES MD DR: JOHN/nts JOB#: [id number] / [id number]
== END 2016-12-16 13:50 | disposition home or self-care (01) | DRG 669 ==
LOC: ER 02:59 → 6 SOUTH 04:50
PROVIDERS: ADMIT Family Medicine; ATTEND Family Medicine
PROC: 0T768DZ Dilation of Right Ureter with Intraluminal Device, Via Natural or Artificial Opening Endoscopic (ICD-10-PCS; 2016-12-15)
PROC: BT1D1ZZ Fluoroscopy of Right Kidney, Ureter and Bladder using Low Osmolar Contrast (ICD-10-PCS; 2016-12-15)
PROC: 0TC68ZZ Extirpation of Matter from Right Ureter, Via Natural or Artificial Opening Endoscopic (ICD-10-PCS; principal; 2016-12-15 13:45)
DX: N13.2 Hydronephrosis with renal and ureteral calculous obstruction (principal); E78.00 Pure hypercholesterolemia, unspecified; I10 Essential (primary) hypertension; I25.10 Atherosclerotic heart disease of native coronary artery without angina pectoris; N39.0 Urinary tract infection, site not specified; Z96.649 Presence of unspecified artificial hip joint; F41.9 Anxiety disorder, unspecified; G43.909 Migraine, unspecified, not intractable, without status migrainosus; Z95.5 Presence of coronary angioplasty implant and graft; Z90.710 Acquired absence of both cervix and uterus; I25.2 Old myocardial infarction
CPT/HCPCS: 36415; 74000; 74177; 74420; 80048; 80053; 81001; 85027; 85610; 85730; 87086; 93005; 96361; 96365; 96375; 96376; C1769; C2617; J0690; J0696; J0780; J1170; J1885; J2060; J2405; J3010; J7030; Q9967; 99285-25

== ENCOUNTER 2017-01-10 06:21 | Day surgery (SDC) | payer OTHER ==
[~2017-01-10] VITALS: Ht 167.6 cm; Wt 81.6 kg
[~2017-01-10 06:21] MED LIST changes: +ACET-704 PO; +ASPI81TA9 PO; +DEXAMETHASONE SOD PHOS 20 MG/5 ML VIAL. ONE; +FENTANYL PF 100 MCG/2 ML VIAL. IV PRN; +HYDROMORPHONE 2 MG/ML VIAL. IV PRN; +IV RINGERS,LACTATED 1000ML 1,000 ML IV SCH; +LIDOCAINE 1% 1 ML SYRINGE. ID PRN; +LIDOCAINE 2% 100 MG/5 ML DISP.SYRIN. ONE; +MORPHINE SULFATE 2 MG/ML DISP.SYRIN. IV PRN; +ONDANSETRON PF 4 MG/2 ML VIAL. IV PRN; +ONDANSETRON PF 4 MG/2 ML VIAL. ONE; +PROCHLORPERAZINE 10 MG/2 ML VIAL. IV PRN; +PROPOFOL 20 ML IV ONE
[2017-01-10] MEDS ORDERED: LIDOCAINE 1% 1 ML SYRINGE. ID PRN (07:00)
[2017-01-10] MEDS ORDERED: PROCHLORPERAZINE 10 MG/2 ML VIAL. IV PRN (07:00)
[2017-01-10] MEDS ORDERED: FENTANYL PF 100 MCG/2 ML VIAL. IV ONE (07:00)
[2017-01-10] MEDS ORDERED: FENTANYL PF 100 MCG/2 ML VIAL. IV PRN (07:00)
[2017-01-10] MEDS ORDERED: MORPHINE SULFATE 2 MG/ML DISP.SYRIN. IV PRN (07:00)
[2017-01-10] MEDS ORDERED: HYDROMORPHONE 2 MG/ML VIAL. IV PRN (07:00)
[2017-01-10] MEDS ORDERED: IV RINGERS,LACTATED 1000ML 1,000 ML IV SCH (07:00)
[2017-01-10] MEDS ORDERED: ONDANSETRON PF 4 MG/2 ML VIAL. IV PRN (07:00)
[2017-01-10] MEDS ORDERED: IOHEXOL 300 MG/ML 50 ML VIAL. ONE (07:54)
[2017-01-10] MEDS ORDERED: MIDAZOLAM HCL 2 MG/2 ML VIAL. ONE (08:10)
[2017-01-10] MEDS ORDERED: EPHEDRINE PF IN SALINE 50 MG/5 ML DISP.SYRIN. IV ONE (08:40)
[2017-01-10] MEDS ORDERED: FUROSEMIDE 40 MG/4 ML VIAL ONE (08:46)
[2017-01-10] MEDS ORDERED: KETOROLAC 30 MG/ML SYRINGE FOR OR. INJ ONE (09:13)
[2017-01-10] MEDS ORDERED: SEVOFLURANE 61 TO 120 MINUTES. IH ONE (09:16)
--- NOTE | 2017-01-10 09:33 | DISCH ---
DISCHARGE INSTRUCTIONS Condition on Discharge Condition on Discharge: Stable Activity After Discharge Activity Instructions for Disc: Activity as tolerated Driving Instructions after Dis: Do not drive today Diet after Discharge Diet after Discharge: Regular Additional Diet Restrictions: Drink 8-10 12oz glasses of water per day Checks after Discharge DC Comment: May resume Effient tomorrow Contacting the DR. after DC Call your doctor for: Concerns you may have Follow-Up Follow up with: 4 weeks MOHSEN VANN DO Jan 10, 2017 09:33
--- NOTE | 2017-01-10 09:36 | PDOC ---
BRIEF OPERATIVE NOTE Date: Jan 10, 2017 Pre-Op Diagnosis right ureteral calculus Post-Op Diagnosis same Procedure Performed Cysto-stent removal, ureteroscopy holmium laser lithotripsy, NO stent replacement Surgeon Damir Anesthesia Type: General Specimens Obtained None sent to lab Findings same small stone fragments in ureter Complications None Additional Remarks Tolerated well MOHSEN VANN DO Jan 10, 2017 09:36
[2017-01-10] MEDS: FENTANYL PF 100 MCG/2 ML VIAL. IV PRN ×2 (09:57→10:05)
--- NOTE | 2017-01-10 10:05 | OP ---
DATE OF SURGERY: 01/10/2017 PREOPERATIVE DIAGNOSIS: Right ureteral calculus. POSTOPERATIVE DIAGNOSIS: Right ureteral calculus. PROCEDURE: Cystoscopy stent removal, rigid ureteroscopy with holmium laser lithotripsy, stone extraction. SURGEON: Mohsen Vann D.O. ANESTHESIA: General. INDICATIONS AND JUDGMENT: A 61-year-old female with a history of a right ureteral calculus. She previously underwent ureteroscopy with holmium laser lithotripsy on 12/15/2016, but there was difficulty with equipment particularly with the laser. The bright light on the laser obscured the stone. At that time, only partially stone was removed due to lack of adequate vision, due to this faulty laser. The stent was placed at the end of that procedure. The patient was brought back today to remove the remaining portion of the right ureteral calculus for now using a laser from control operator surgical. The procedure was explained to the patient. She appeared to understand and was agreeable. DESCRIPTION OF PROCEDURE: The patient was preloaded with IV antibiotics. She was taken to the operating room and placed on the operating room table in a supine position, given a general anesthetic and then placed in a dorsolithotomy position using Jones stirrups, since we do not have a cystoscopy table. A C-arm was moved into position for fluoroscopy. Rigid cystoscopy was performed. The urine had a heme color. She was taken off Effient, blood thinner, 2 days ago. She is also on Pyridium. Sample of the urine was sent for culture and sensitivities. The right ureteral orifice and stent was visualized and passed 0.035 Glidewire up alongside the stent and then the stent was removed. I then performed rigid ureteroscopy with a Puente ureteroscope, passed it up the right ureteral orifice alongside the Glidewire. The calculus fragment, that was remaining, was visualized; I broke it and fractionated it with the laser. All the small fragments were removed from the ureter. No other fragments were identified. The ureteroscope was removed. The Glidewire was removed as well. I searched for these satellite fragments with the cystoscope, but they were too small to remove. Therefore, I did not have any more fragments to submit to pathology; we do have a fragment from her previous case. The instruments were removed. The patient tolerated the procedure well and sent to recovery room in satisfactory condition. Plans will be to send the patient home with a prescription for Cipro antibiotics and Lortab 5. She will follow up in the office in about 6 weeks. MOHSEN VANN DO DR: YARELI/teodoro JOB#: [id number] / [id number]
[2017-01-10] MEDS ORDERED: CIPR500T94 PO (10:09)
[2017-01-10] MEDS ORDERED: HYDR-971 PO (10:10)
[2017-01-10 10:25] VITALS: BP 131/66
[2017-01-10 11:20] LABS: BILIRUBIN,URINE LARGE (NEG); GLUCOSE,URINE NEGATIVE (NEG); NITRITE,URINE POSITIVE (NEG); PH,URINE 5.5; PROTEIN,URINE >=300 mg/dL (NEG-TRACE)
[2017-01-10 11:43] LABS: BACTERIA,URINE 0 /HPF (0-FEW); RBC,URINE TNTC /HPF (0-2)
== END 2017-01-10 11:05 | disposition home or self-care (01) ==
LOC: SURG 06:21
PROVIDERS: ATTEND Urology
DX: N20.1 Calculus of ureter (principal); E78.00 Pure hypercholesterolemia, unspecified; I10 Essential (primary) hypertension; E66.9 Obesity, unspecified; F41.9 Anxiety disorder, unspecified; Z90.710 Acquired absence of both cervix and uterus; Z87.39 Personal history of other diseases of the musculoskeletal system and connective tissue; Z96.642 Presence of left artificial hip joint; Z72.0 Tobacco use
CPT/HCPCS: 52353; 76000; 81001; 87086; C1769; J0780; J1100; J1885; J1940; J1956; J2250; J2405; J2704; J3010; J7120; Q9967

== ENCOUNTER → 2017-02-07 | Outpatient (CLI) | payer OTHER ==
[2017-01-10 10:25] VITALS: BP 131/66
[~2017-02-07] MED LIST changes: +CIPR500T94 PO; -DEXAMETHASONE SOD PHOS 20 MG/5 ML VIAL. ONE; -FENTANYL PF 100 MCG/2 ML VIAL. IV PRN; +HYDR-971 PO; -HYDROMORPHONE 2 MG/ML VIAL. IV PRN; -IV RINGERS,LACTATED 1000ML 1,000 ML IV SCH; -LIDOCAINE 1% 1 ML SYRINGE. ID PRN; -LIDOCAINE 2% 100 MG/5 ML DISP.SYRIN. ONE; -MORPHINE SULFATE 2 MG/ML DISP.SYRIN. IV PRN; -ONDANSETRON PF 4 MG/2 ML VIAL. IV PRN; -ONDANSETRON PF 4 MG/2 ML VIAL. ONE; -PROCHLORPERAZINE 10 MG/2 ML VIAL. IV PRN; -PROPOFOL 20 ML IV ONE
--- NOTE | 2017-02-08 10:35 | RAD ---
DATE: 02/07/2017 EXAM: DIGITAL SCREEN BILAT W/CAD HISTORY: Routine screening COMPARISON: 04/03/2013 This study was interpreted with the benefit of Computerized Aided Detection (CAD). FINDINGS: There are scattered fibroglandular densities in the breasts. An old breast biopsy marker is present laterally in the left breast. There is a stable small nodule in the lateral aspect of the right breast. No new or enlarging breast densities are seen. Benign type calcifications are present. No suspicious microcalcifications have developed. IMPRESSION: There is no mammographic evidence of malignancy in either breast. BI-RADS CATEGORY: 2 BENIGN FINDING(S) RECOMMENDED FOLLOW-UP: 12M 12 MONTH FOLLOW-UP PQRS compliance statement: Patient information was entered into a reminder system with a target due date for the next mammogram. Mammography is a sensitive method for finding small breast cancers, but it does not detect them all and is not a substitute for careful clinical examination. A negative mammogram does not negate a clinically suspicious finding and should not result in delay in biopsying a clinically suspicious abnormality. "Our facility is accredited by the [employer] Mammography Program."
== END | disposition home or self-care (01) ==
LOC: MAMMO 14:30
PROVIDERS: ATTEND Family Medicine
DX: Z12.31 Encounter for screening mammogram for malignant neoplasm of breast (principal)
CPT/HCPCS: G0202; 77067

== ENCOUNTER → 2017-02-23 | Outpatient (CLI) | payer OTHER ==
[~2017-02-23] MED LIST changes: +GADOBUTROL 10 MMOL/10 ML VIAL IV ONE; -NYST1000 SWSW; +NYST100054 SWSW; -PRAS10TA4 PO; +PRAS10TA9 PO
--- NOTE | 2017-02-23 16:27 | KCIC ---
PROCEDURE MRI abdomen with/without contrast. HISTORY Liver lesions. TECHNIQUE MRI of the abdomen was performed before and after the intravenous administration of 8 milliliters Gadavist. COMPARISON 07/16/2015. FINDINGS There are multiple T2 hyperintense, nonenhancing lesions within the liver consistent with cysts. The largest in segment 7/6 measures 3.3 centimeters. There are no suspicious enhancing lesions. There is no clear interval change. There are multiple cysts bilaterally in the kidneys. The largest on the left measures 2.8 centimeters and appears benign. Some uncomplicated. One contains a small fluid level posteriorly on the left. No solid enhancing lesions are seen. The pancreas, adrenal glands, spleen and gallbladder are unremarkable. There is no clear steatosis. There is multifocal ectasia of the infrarenal abdominal aorta without aneurysmal dilatation. Maximum diameters 2.5 centimeters. IMPRESSION - Hepatic cysts appear benign. - Bilateral renal cysts also appear benign. Some are mildly complicated. - Infrarenal abdominal aortic ectasia without aneurysmal dilatation. Electronically signed by: Manas Mcintosh (February 23, 2017 16:26:05)
== END | disposition home or self-care (01) ==
LOC: KCIC MRI 14:54
PROVIDERS: ATTEND Physician Assistant
DX: N28.1 Cyst of kidney, acquired (principal)
CPT/HCPCS: 74183; A9585

== ENCOUNTER → 2018-02-07 | Outpatient (CLI) | payer OTHER ==
[2018-02-07] MEDS: REGADENOSON 0.4 MG/5 ML DISP.SYRIN. IV (10:16)
== END | disposition home or self-care (01) ==
LOC: NM 15:41
DX: I25.10 Atherosclerotic heart disease of native coronary artery without angina pectoris (principal); I11.9 Hypertensive heart disease without heart failure; I34.0 Nonrheumatic mitral (valve) insufficiency
CPT/HCPCS: 78452; 93017; 93306; 96374; 96375; 96376; A9500; J2785

== ENCOUNTER 2018-06-16 21:47 | Emergency (ER) | payer OTHER ==
[~2018-06-16] VITALS: Ht 167.6 cm; Wt 81.6 kg
[~2018-06-16 21:47] MED LIST changes: +ASPI-612 PO; +ASPI-630 PO; -ASPI81TA2 PO; -ASPI81TA9 PO; -CLOP75TA27 PO; +CLOP75TA57 PO; -GADOBUTROL 10 MMOL/10 ML VIAL IV ONE; -LOSA1TAB16 PO; +LOSA1TAB19 PO
[2018-06-16 22:14] VITALS: BP 160/80
[2018-06-16] MEDS ORDERED: BENZONATATE 100 MG CAPSULE. PO ONE (22:30)
[2018-06-16] MEDS ORDERED: PRED50TA PO (22:32)
[2018-06-16] MEDS ORDERED: BENZ100C PO (22:32)
--- NOTE | 2018-06-16 22:32 | PHYS DOC ---
Past Medical History Past Medical History: Anxiety, High Cholesterol, Hypertension, [place], Migraines, Other Additional Past Medical Histor: ulcer, stemi Past Surgical History: Hip Replacement, Hysterectomy, Other Additional Past Surgical Histo: right ankle, jaw, cardiac stent X3 Alcohol Use: None Drug Use: None Adult General Chief Complaint Chief Complaint: Congestion HPI HPI Patient is a 62 year old female who presents to the emergency department with complaints of cough with white to yellow sputum produced for the last 2 days. She states that she has coughed so hard that she is actually vomited a few times tonight. She denies any fever, nausea, diarrhea, or abdominal pain. Patient states she is a smoker, and she has been using her albuterol inhaler at home. In addition to the cough patient reports nasal congestion, and a frontal headache. Review of Systems Review of Systems Constitutional: Denies fever or chills [] HENT: Reports nasal congestion, ear fullness, and sinus pressure; denies sore throat [] Respiratory: Reports productive cough and shortness of breath [] Cardiovascular: Denies chest pain GI: Denies abdominal pain, nausea, or diarrhea; reports posttussive emesis 2 this evening Musculoskeletal: Reports body aches Integument: Denies rash or skin lesions [] Neurologic: Denies focal weakness or sensory changes; reports frontal headache All other systems were reviewed and found to be within normal limits, except as documented in this note. Current Medications Current Medications Current Medications Medications (Trade) Dose Ordered Sig/Luci Start Time Stop Time Status Last Admin Dose Admin Benzonatate (Tessalon Perle) 100 mg 1X ONCE 06/16/18 22:30 06/16/18 22:31 DC Allergies Allergies Allergies Coded Allergies Type Severity Reaction Last Updated Verified naproxen Adverse Reaction Unknown Nausea and Vomiting 01/10/17 Yes Physical Exam Physical Exam Constitutional: Well developed, well nourished, no acute distress, non-toxic appearance. [] HENT: Normocephalic, atraumatic, bilateral external ears normal, bilateral TMs normal oropharynx moist, no oral exudates, nose normal. [] Eyes: PERRLA, conjunctiva normal, no discharge. [] Neck: Normal range of motion, no tenderness, supple, no stridor. [] Cardiovascular:Heart rate regular rhythm, no murmur [] Lungs & Thorax: Bilateral breath sounds clear to auscultation, with few scattered wheezes [] Skin: Warm, dry, no erythema, no rash. [] Extremities: No no cyanosis, no clubbing, no edema. [] Neurologic: Alert and oriented X 3, normal motor function, normal sensory function, no focal deficits noted. [] Psychologic: Affect normal, judgement normal, mood normal. [] Current Patient Data Vital Signs Vital Signs Date Time Temp Pulse Resp B/P (MAP) Pulse Ox O2 Delivery O2 Flow Rate FiO2 06/16/18 22:14 98.2 83 18 160/80 (106) 99 Room Air 98.2 EKG EKG [] Radiology/Procedures Radiology/Procedures [] Course & Med Decision Making Course & Med Decision Making Pertinent Labs and Imaging studies reviewed. (See chart for details) Patient is a 62-year-old female who presents to the emergency room with complaints of a productive cough for the last 2 days with posttussive emesis 2 , shortness of breath, and a frontal headache. Vital signs are stable, patient was given a prednisone and a Tessalon Perle in the emergency department. Prescriptions for prednisone and Tessalon Perles was written. Patient was encouraged to avoid airway triggers such as smoke, perfumes , dust, candles. Patient verbalized an understanding of home care, medications, follow-up, and return to ED instructions and was in agreement with the plan of care. [] Dragon Disclaimer Dragon Disclaimer This electronic medical record was generated, in whole or in part, using a voice recognition dictation system. Departure Departure Impression: Primary Impression: Productive cough Additional Impression: Acute upper respiratory infection Disposition: 01 HOME, SELF-CARE Condition: STABLE Referrals: VIANCA ALVES MD (PCP) Patient Instructions: Upper Respiratory Infection, Adult, [id number] Additional Instructions: Fill prescription(s) and use as directed. Cool mist humidifier in room at bedtime. Tylenol or ibuprofen prn pain/fever. Increase clear fluids. Avoid triggers such as smoke, fragrance, dust, and pollen.Follow-up with your primary care doctor in 1-2 days. Return to emergency room if your symptoms worsen. Scripts Prednisone (PREDNISONE) 50 Mg Tablet 1 TAB PO DAILY for 4 Days, #4 TAB 0 Refills Prov: KOFI HENRY APRN 06/16/18 Benzonatate (TESSALON PERLE) 100 Mg Capsule 100 MG PO TID PRN for COUGH for 7 Days, #21 CAP 0 Refills Prov: KOFI HENRY APRN 06/16/18 Problem Qualifiers KOFI HENRY APRN Jun 16, 2018 22:32
[2018-06-16] MEDS ORDERED: predniSONE 20 MG TABLET PO ONE (22:45)
== END 2018-06-16 22:42 | disposition home or self-care (01) ==
LOC: ER 21:47
DX: J06.9 Acute upper respiratory infection, unspecified (principal); R11.10 Vomiting, unspecified; R06.02 Shortness of breath; R51 Headache; E78.00 Pure hypercholesterolemia, unspecified; I10 Essential (primary) hypertension; G43.909 Migraine, unspecified, not intractable, without status migrainosus; Z95.5 Presence of coronary angioplasty implant and graft; I25.2 Old myocardial infarction
CPT/HCPCS: 99283; J7512

== ENCOUNTER → 2018-07-16 | Outpatient (CLI) | payer OTHER ==
[2018-06-16 22:14] VITALS: BP 160/80
[~2018-07-16] MED LIST changes: +BENZ100C PO; -LOSA50TA6 PO; +LOSA50TA7 PO; +PRED50TA PO
--- NOTE | 2018-07-16 17:47 | KCIC ---
CT scan of the paranasal sinuses without contrast 07/16/2018 CLINICAL HISTORY: Chronic sinusitis with congestion, cough and drainage. TECHNIQUE: Unenhanced, contiguous, 0.6 mm axial sections were obtained through the paranasal sinuses. 1 mm reconstructed sagittal, axial and coronal images were obtained. One or more of the following individualized dose reduction techniques were utilized for this study: 1. Automated exposure control. 2. Adjustment of the mA and/or kV according to patient size. 3. Use of iterative reconstruction technique. FINDINGS: The paranasal sinuses are well aerated and are clear. No air-fluid level is seen. The ostiomeatal units are patent bilaterally. The mastoid air cells and middle ear cavities are well aerated and are clear. IMPRESSION: No CT evidence of sinusitis. Electronically signed by: Manish Marin MD (07/16/2018 5:44 PM) [id number]
== END | disposition home or self-care (01) ==
LOC: KCIC CT 12:43
PROVIDERS: ATTEND Otolaryngology
DX: J32.9 Chronic sinusitis, unspecified (principal); I25.2 Old myocardial infarction; I11.9 Hypertensive heart disease without heart failure; E78.5 Hyperlipidemia, unspecified; E78.00 Pure hypercholesterolemia, unspecified; G43.909 Migraine, unspecified, not intractable, without status migrainosus; I25.10 Atherosclerotic heart disease of native coronary artery without angina pectoris; K21.9 Gastro-esophageal reflux disease without esophagitis; Z87.891 Personal history of nicotine dependence; Z87.39 Personal history of other diseases of the musculoskeletal system and connective tissue; Z90.710 Acquired absence of both cervix and uterus; Z82.49 Family history of ischemic heart disease and other diseases of the circulatory system
CPT/HCPCS: 70486

== ENCOUNTER → 2019-01-09 | Outpatient (CLI) | payer OTHER ==
[~2019-01-09] MED LIST changes: +CARV3.1210 PO; -CARV3.122 PO; +HYDR-3164 PO; -HYDR-971 PO; +LOSA-73 PO; -LOSA50TA7 PO
--- NOTE | 2019-01-09 13:33 | RAD ---
DATE: 01/09/2019 EXAM: MAMMO LAWANDA SCREENING BILATERAL HISTORY: Routine screening. COMPARISON: Previous mammogram from 2017. This study was interpreted with the benefit of Computerized Aided Detection (CAD). FINDINGS: Breast Density: SCATTERED The breast parenchyma shows scattered fibroglandular densities. Breast parenchyma level B. The skin and nipples are within normal limits. There is a oval-shaped mass with well-circumscribed margins measuring 6 mm at 7:00 position in the right breast approximately 3.8 cm from the nipple on MLO view. Another right outer breast nodule is stable from previous exam and is most likely benign given interval stability. Left breast demonstrates no mammographic abnormality. IMPRESSION: Right breast inferior outer quadrant mass. BI-RADS CATEGORY: 0 INCOMPLETE: NEED ADDITIONAL IMAGING EVAULATION AND/OR PRIOR MAMMOGRAMS FOR COMPARISON RECOMMENDED FOLLOW-UP: ADD ADDITIONAL IMAGING. Ultrasound of the lower outer right breast at 7:00 position recommended. PQRS compliance statement: Patient information was entered into a reminder system with a target due date for the next mammogram. Mammography is a sensitive method for finding small breast cancers, but it does not detect them all and is not a substitute for careful clinical examination. A negative mammogram does not negate a clinically suspicious finding and should not result in delay in biopsying a clinically suspicious abnormality. "Our facility is accredited by the [employer] Mammography [employer]."
== END | disposition home or self-care (01) ==
LOC: MAMMO 09:49
PROVIDERS: ATTEND Family Medicine
DX: Z12.31 Encounter for screening mammogram for malignant neoplasm of breast (principal); N63.13 Unspecified lump in the right breast, lower outer quadrant
CPT/HCPCS: 77063; 77067

== ENCOUNTER → 2019-01-11 | Outpatient (CLI) | payer OTHER ==
--- NOTE | 2019-01-11 11:45 | RAD ---
Indication: Callback. Technique: Limited right breast ultrasound. Comparison: Most recent screening mammogram from 01/09/2019. Findings: Approximately 3 cm from the nipple at 7:00 position there is an oval-shaped hypoechoic mass with well-circumscribed margins which is hypoechoic with linear internal echogenicity, no posterior shadowing and no significant vascularity measuring 0.7 x 0.4 x 0.2 cm. The margins are somewhat irregular on radial orientation. Impression: Right breast nodule corresponding to mammographically seen abnormality as described above. This lesion has no apparent worrisome features and may represent a small fibroadenoma. BI-RADS 3: Probably benign. Follow-up ultrasound of the right breast in 3 months recommended.
== END | disposition home or self-care (01) ==
LOC: US 10:42
PROVIDERS: ATTEND Family Medicine
DX: N63.13 Unspecified lump in the right breast, lower outer quadrant (principal)
CPT/HCPCS: 76641

== ENCOUNTER → 2019-02-11 | Outpatient (CLI) | payer OTHER ==
--- NOTE | 2019-02-11 11:44 | CARD ---
MR#: [id number] Date of Study: 02/11/2019 Ordering Physician: AMAYA ADAIR, Referring Physician: AMAYA ADAIR, Tech: Yelena Kohli APPROVED REPORT EXAM: Two-dimensional and M-mode echocardiogram with Doppler and color Doppler. Other Information Quality : AverageHR: 71bpm Technically limited study due to COPD INDICATION CAD RISK FACTORS Hypertension Hyperlipidemia Smoking 2D DIMENSIONS RVDd3.3 (2.9-3.5cm)Left Atrium(2D)3.0 (1.6-4.0cm) IVSd1.0 (0.7-1.1cm)Aortic Root(2D)2.9 (2.0-3.7cm) LVDd4.9 (3.9-5.9cm)LVOT Diameter2.2 (1.8-2.4cm) PWd1.0 (0.7-1.1cm)LVDs4.2 (2.5-4.0cm) FS (%) 13.4 %SV31.8 ml LVEF(%)28.7 (>50%) Aortic Valve AoV Peak Abdirahman.98.8cm/sAoV VTI18.8cm AO Peak GR.3.9mmHgLVOT Peak Abdirahman.86.8cm/s LVOT VTI 16.78cmAO Mean GR.2mmHg ESTUARDO (VMAX)2.05ra9RZX (VTI)3.51cm2 Mitral Valve MV E Evayfhgk09.5cm/sMV DECEL XOKS18fu MV A Kiryrvum79.2cm/sMV CYS94zn E/A Ratio0.4MVA (PHT)7.63cm2 TDI E/Lateral E'2.9 Pulmonary Valve PV Peak Nngofluq39.0cm/sPV Peak Grad.2mmHg Tricuspid Valve TR P. Tfohzlih852cu/sRAP IVZHLQVN38tgUu TR Peak Gr.22mmHg Pulmonary Vein S1 Sxozwxsn30.1cm/sD2 Ulggsvii77.4cm/s PVa [id number] LEFT VENTRICLE The left ventricle is normal size. There is normal left ventricular wall thickness. Hypokinesis of di stal anterior and anteoseptal combs and entire apical wall. The Ejection Fraction is 40-45%. Transmit ral Doppler flow pattern is Grade I-abnormal relaxation pattern. RIGHT VENTRICLE The right ventricle is normal size. There is normal right ventricular wall thickness. The right ventr icular systolic function is normal. ATRIA The left atrium size is normal. The right atrium size is normal. The interatrial septum is intact wit h no evidence for an atrial septal defect or patent foramen ovale as noted on 2-D or Doppler imaging. AORTIC VALVE The aortic valve is normal in structure and function. Doppler and Color Flow revealed no significant aortic regurgitation. There is no significant aortic valvular stenosis. MITRAL VALVE The mitral valve is normal in structure and function. There is no evidence of mitral valve prolapse. There is no mitral valve stenosis. Doppler and Color-flow revealed trace mitral regurgitation. TRICUSPID VALVE The tricuspid valve is normal in structure and function. Doppler and Color Flow revealed trace tricus pid valve regurgitation noted with an estimated PAP of 25 mmHg. There is no tricuspid valve stenosis. PULMONIC VALVE The pulmonic valve is not well visualized. Doppler and Color Flow revealed no pulmonic valvular regur gitation. GREAT VESSELS The aortic root is normal in size. The IVC is normal in size and collapses >50% with inspiration. PERICARDIAL EFFUSION There is no evidence of significant pericardial effusion. Critical Notification Critical Value: No <Conclusion> Hypokinesis of distal anterior and anteoseptal combs and entire apical wall. The Ejection Fraction is 40-45%. Transmitral Doppler flow pattern is Grade I-abnormal relaxation pattern. Trace mitral regurgitation. Trace tricuspid valve regurgitation noted with an estimated PAP of 25 mmHg. There is no evidence of significant pericardial effusion. Signed by : Amaya Adair, Electronically Approved : 02/11/2019 11:44:21
== END | disposition home or self-care (01) ==
LOC: ECHO 09:45
PROVIDERS: ATTEND Internal Medicine Cardiovascular Disease
DX: I25.10 Atherosclerotic heart disease of native coronary artery without angina pectoris (principal); I11.0 Hypertensive heart disease with heart failure; I50.22 Chronic systolic (congestive) heart failure; E78.5 Hyperlipidemia, unspecified; J44.9 Chronic obstructive pulmonary disease, unspecified; F17.200 Nicotine dependence, unspecified, uncomplicated
CPT/HCPCS: 93306

== ENCOUNTER 2019-03-21 11:58 | Inpatient (IN) | payer OTHER ==
[~2019-03-21] VITALS: Ht 175.3 cm; Wt 81.7 kg
[2019-03-21 13:12] LABS: BASO % 1 % (0-3); EOS # 0.1 x10^3/uL (0.0-0.7); EOS % 1 % (0-3); HEMATOCRIT 46.6 % (36.0-47.0); HEMOGLOBIN 15.6 g/dL (12.0-15.5); LYMPH # 2.3 x10^3/uL (1.0-4.8); LYMPH % 33 % (24-48); MEAN CORPUSCULAR HEMOGLOBIN 32 pg (25-35); MEAN CORPUSCULAR HGB CONC 34 g/dL (31-37); MEAN CORPUSCULAR VOLUME 95 fL (79-100); MONO # 0.5 x10^3/uL (0.0-1.1); MONO % 7 % (0-9); NEUT # 4.1 x10^3uL (1.8-7.7); NEUT % 59 % (31-73); PLATELET COUNT 266 x10^3/uL (140-400); RED BLOOD COUNT 4.92 x10^6/uL (3.50-5.40)
--- NOTE | 2019-03-21 13:13 | PHYS DOC ---
Past Medical History Past Medical History: Anxiety, High Cholesterol, Hypertension, [place], Migraines, Other Additional Past Medical Histor: ulcer, stemi Past Surgical History: Hip Replacement, Hysterectomy, Other Additional Past Surgical Histo: right ankle, jaw, cardiac stent X3 Additional Information: "10 smokes per day" Alcohol Use: None Drug Use: None Adult General Chief Complaint Chief Complaint: MULTIPLE COMPLAINTS HPI HPI Patient is a 63-year-old female, with a past history of coronary artery disease, and other health problems, who presents to the emergency department for evaluation. She states that for the past 4 days she has had a mild headache, described as global. She has had migraine headaches in the past, and states that her current headache is not quite as intense as her prior headaches. She has not had any vision changes, numbness, or weakness. She states that she checked her blood pressure last night and was in the 140s. She checked it again this morning I was in the 160s, and she began expressing pain in her left shoulder region. The pain is worsened with movement and palpation. She has not had any shortness of breath, dizziness or lightheadedness, or any chest discomfort at all. However, the patient states that when she has had her prior heart attacks and stents, she states that she began experiencing symptoms of pain in her back. She states the headache is not "the worst headache of her life", and she has had prior worse headaches in the past. She is not as concerned about her headache as her blood pressure, as well as her heart. Review of Systems Review of Systems Constitutional: Denies fever or chills [] Eyes: Denies change in visual acuity, redness, or eye pain [] HENT: Denies nasal congestion or sore throat [] Respiratory: Denies cough or shortness of breath [] Cardiovascular: No additional information not addressed in HPI [] GI: Denies abdominal pain, nausea, vomiting, bloody stools or diarrhea [] : Denies dysuria or hematuria [] Musculoskeletal: Denies back pain or joint pain [] Integument: Denies rash or skin lesions [] Neurologic: Denies focal weakness or sensory changes [] Endocrine: Denies polyuria or polydipsia [] All other systems were reviewed and found to be within normal limits, except as documented in this note. Current Medications Current Medications Current Medications Medications (Trade) Dose Ordered Sig/Luci Start Time Stop Time Status Last Admin Dose Admin Aspirin (Children'S Aspirin) 243 mg 1X ONCE 03/21/19 13:45 03/21/19 13:49 DC Lorazepam (Ativan Inj) 1 mg 1X ONCE 03/21/19 13:15 03/21/19 13:16 DC 03/21/19 13:31 1 MG Metoprolol Tartrate (Lopressor Vial) 5 mg 1X ONCE 03/21/19 14:15 03/21/19 14:16 UNV Nitroglycerin (Nitro-Bid Oint) 1 inch 1X ONCE 03/21/19 14:15 03/21/19 14:16 UNV Allergies Allergies Allergies Coded Allergies Type Severity Reaction Last Updated Verified naproxen Adverse Reaction Unknown Nausea and Vomiting 01/10/17 Yes Physical Exam Physical Exam PHYSICAL EXAM: Blood pressure 158/84 on my exam CONSTITUTIONAL: Well developed, well nourished HEAD: normocephalic, atraumatic EENT: PERRL, EOMI. Conjunctivae normal color, sclerae non-icteric; moist mucous membranes. NECK: Supple, non-tender; no meningismus. LUNGS: Lungs CTA, breathing even and unlabored. Normal air movement. HEART: Regular rate and rhythm, no murmur CHEST: No deformity; non-tender ABDOMEN: The abdomen is soft, and non-tender, no masses or bruits. EXTREM: Normal ROM; no deformity, no calf tenderness. Normal pulses palpable in all extremities. There is no pedal edema. SKIN: No rash; no diaphoresis NEURO: Alert; normal speech and cognition; CN's grossly intact; strength grossly intact without focal deficit. BACK: No CVA TTP. Palpation of the left parascapular area reproduces the patient's back pain. PSYCHIATRIC: The patient exhibits a mildly anxious affect. Current Patient Data Vital Signs Vital Signs Date Time Temp Pulse Resp B/P (MAP) Pulse Ox O2 Delivery O2 Flow Rate FiO2 03/21/19 12:05 98.0 76 22 170/102 (124) 97 Room Air 98.0 Lab Values Laboratory Tests Test 03/21/19 12:10 White Blood Count 7.0 x10^3/uL (4.0-11.0) Red Blood Count 4.92 x10^6/uL (3.50-5.40) Hemoglobin 15.6 g/dL (12.0-15.5) H Hematocrit 46.6 % (36.0-47.0) Mean Corpuscular Volume 95 fL (79-100) Mean Corpuscular Hemoglobin 32 pg (25-35) Mean Corpuscular Hemoglobin Concent 34 g/dL (31-37) Red Cell Distribution Width 14.0 % (11.5-14.5) Platelet Count 266 x10^3/uL (140-400) Neutrophils (%) (Auto) 59 % (31-73) Lymphocytes (%) (Auto) 33 % (24-48) Monocytes (%) (Auto) 7 % (0-9) Eosinophils (%) (Auto) 1 % (0-3) Basophils (%) (Auto) 1 % (0-3) Neutrophils # (Auto) 4.1 x10^3uL (1.8-7.7) Lymphocytes # (Auto) 2.3 x10^3/uL (1.0-4.8) Monocytes # (Auto) 0.5 x10^3/uL (0.0-1.1) Eosinophils # (Auto) 0.1 x10^3/uL (0.0-0.7) Basophils # (Auto) 0.0 x10^3/uL (0.0-0.2) Sodium Level 142 mmol/L (136-145) Potassium Level 3.5 mmol/L (3.5-5.1) Chloride Level 103 mmol/L (98-107) Carbon Dioxide Level 29 mmol/L (21-32) Anion Gap 10 (6-14) Blood Urea Nitrogen 10 mg/dL (7-20) Creatinine 0.8 mg/dL (0.6-1.0) Estimated GFR (Cockcroft-Gault) 72.9 BUN/Creatinine Ratio 13 (6-20) Glucose Level 106 mg/dL (70-99) H Calcium Level 9.2 mg/dL (8.5-10.1) Magnesium Level 2.0 mg/dL (1.8-2.4) Total Bilirubin 0.2 mg/dL (0.2-1.0) Aspartate Amino Transferase (AST) 23 U/L (15-37) Alanine Aminotransferase (ALT) 34 U/L (14-59) Alkaline Phosphatase 57 U/L (46-116) Creatine Kinase 69 U/L (26-192) Creatine Kinase MB (Mass) 5.4 ng/mL (0.0-3.6) H Creatine Kinase MB Relative Index % (0-4) Troponin I Quantitative < 0.017 ng/mL (0.000-0.055) LQ-Bmy-P-Type Natriuretic Peptide 168 pg/mL (0-124) H Total Protein 7.3 g/dL (6.4-8.2) Albumin 3.6 g/dL (3.4-5.0) Albumin/Globulin Ratio 1.0 (1.0-1.7) Laboratory Tests 03/21/19 12:10 Laboratory Tests 03/21/19 12:10 EKG EKG [Normal sinus rhythm at a rate of 77 beats for minute, leftward axis, normal intervals, nonspecific ST/T changes anteriorly/laterally, the EKG is unchanged compared to an EKG from November 2016.] Radiology/Procedures Radiology/Procedures [PROCEDURE: CHEST PA & LATERAL Chest, PA and Lateral: Technique: PA and lateral views of the chest were obtained. History: Atypical chest pain. Comparison: None. Findings: The heart and pulmonary vasculature appear within normal limits. The lungs are clear. The pleural margins are clear. Impression: No acute chest process is seen. ] Course & Med Decision Making Course & Med Decision Making Pertinent Labs and Imaging studies reviewed. (See chart for details) []2:20 PM: The patient's condition remained stable. Due to the similarity between her current symptoms and prior coronary events, evaluation by cardiology and coronary rule out is appropriate. The patient is agreeable Dr. Palencia will admit the patient. Dragon Disclaimer Dragon Disclaimer This electronic medical record was generated, in whole or in part, using a voice recognition dictation system. Departure Departure Impression: Primary Impression: Accelerated hypertension Additional Impressions: Atypical chest pain Coronary artery disease Disposition: ADMITTED INPATIENT Admitting Physician: Alcides Palencia Condition: STABLE Referrals: ALCIDES PALENCIA MD (PCP) Problem Qualifiers ALCIDES PONCE MD March 21, 2019 13:13
[2019-03-21] MEDS ORDERED: ASPIRIN CHEWABLE 81 MG TABLET. PO ONE ×2 (13:15→13:45)
--- NOTE | 2019-03-21 13:27 | EKG ---
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
[2019-03-21 13:28] LABS: CALCIUM 9.2 mg/dL (8.5-10.1); CREATININE 0.8 mg/dL (0.6-1.0); GFR 72.9; POTASSIUM 3.5 mmol/L (3.5-5.1)
[2019-03-21 13:34] LABS: ALBUMIN 3.6 g/dL (3.4-5.0); TOTAL BILIRUBIN 0.2 mg/dL (0.2-1.0); TOTAL PROTEIN 7.3 g/dL (6.4-8.2)
[2019-03-21 13:43] LABS: CREATINE KINASE 69 U/L (26-192)
--- NOTE | 2019-03-21 13:51 | RAD ---
Chest, PA and Lateral: Technique: PA and lateral views of the chest were obtained. History: Atypical chest pain. Comparison: None. Findings: The heart and pulmonary vasculature appear within normal limits. The lungs are clear. The pleural margins are clear. Impression: No acute chest process is seen. Electronically signed by: Nico Lazar MD (03/21/2019 1:48 PM) [place] [id number]
[2019-03-21] MEDS ORDERED: NITROGLYCERIN OINT 1 GM PACKET. TP ONE (14:15)
[2019-03-21] MEDS ORDERED: METOPROLOL TARTRATE 5 MG/5 ML VIAL. IVP ONE (14:15)
[2019-03-21 15:30] VITALS: BP 173/82
--- NOTE | 2019-03-21 15:30 | NUR ---
The patient, TRIP ROCHA, 63 y/o, F admitted by VIANCA ALVES MD, was given written information regarding hospital policies, unit procedures and contact persons. Valuables checked and left in room with patient. Pt arrived to unit from ER via gurney. Pt ambulated to bed. Pt states chest pain/back pain is relieved at this time. No shortness of breath. Pt resting in bed. at bedside. Call light within reach. Will continue to monitor.
[2019-03-21 17:00] VITALS: BP 113/67
[2019-03-21] MEDS: CARVEDILOL 3.125 MG TABLET. PO SCH (17:00)
[2019-03-21 19:26] VITALS: BP 115/58
[2019-03-21] MEDS: ATORVASTATIN CALCIUM 40 MG TABLET. PO SCH (21:00)
[2019-03-21 22:45] VITALS: BP 116/53
[2019-03-22] VITALS (7 sets, daily range): BP systolic 119–155; BP diastolic 58–83
[2019-03-22 05:55] LABS: BASO % 1 % (0-3); EOS # 0.1 x10^3/uL (0.0-0.7); EOS % 2 % (0-3); HEMATOCRIT 42.5 % (36.0-47.0); HEMOGLOBIN 14.5 g/dL (12.0-15.5); LYMPH # 2.2 x10^3/uL (1.0-4.8); LYMPH % 32 % (24-48); MEAN CORPUSCULAR HEMOGLOBIN 32 pg (25-35); MEAN CORPUSCULAR HGB CONC 34 g/dL (31-37); MEAN CORPUSCULAR VOLUME 95 fL (79-100); MONO # 0.6 x10^3/uL (0.0-1.1); MONO % 9 % (0-9); NEUT # 4.1 x10^3uL (1.8-7.7); NEUT % 58 % (31-73); PLATELET COUNT 234 x10^3/uL (140-400); RED BLOOD COUNT 4.47 x10^6/uL (3.50-5.40); RED CELL DISTRIBUTION WIDTH 13.8 % (11.5-14.5); WHITE BLOOD COUNT 7.1 x10^3/uL (4.0-11.0)
[2019-03-22] MEDS ORDERED: ACETAMINOPHEN 500 MG TABLET PO PRN (06:00)
[2019-03-22 06:19] LABS: ALBUMIN 3.2 g/dL (3.4-5.0); ALBUMIN/GLOBULIN RATIO 1.1 (1.0-1.7); CALCIUM 8.7 mg/dL (8.5-10.1); CREATININE 0.8 mg/dL (0.6-1.0); GFR 72.9; POTASSIUM 3.8 mmol/L (3.5-5.1); TOTAL BILIRUBIN 0.2 mg/dL (0.2-1.0)
[2019-03-22] MEDS: PRASUGREL 10 MG TABLET. PO SCH (08:00)
[2019-03-22] MEDS: CARVEDILOL 3.125 MG TABLET. PO SCH ×2 (08:00→17:57)
--- NOTE | 2019-03-22 08:07 | NUR ---
Entered patients room to assess this AM. Educated patient on possible plan of care due to history of CAD. I questioned patient on last PO intake of food or drink. Patient stated " I took my own meds this morning". When I asked patient to clarify, she pulled a pill box her purse and showed me several pills and again stated that she took her own medication. I questioned patient on what she took and she said Core, Lisinopril, Aspirin and Effient. I explained to patient that we give medications at a scheduled time and have all of her medications ordered to give. Educated patient om hospital routines and policies. Advised patient cardiology will visit with patient to further discuss plan.
[2019-03-22 08:59] LABS: CHOLESTEROL/HDL RATIO 3.3
[2019-03-22] MEDS: LISINOPRIL 5 MG TABLET. PO SCH (09:00)
[2019-03-22] MEDS: ASPIRIN CHEWABLE 81 MG TABLET. PO SCH (09:00)
--- NOTE | 2019-03-22 09:06 | PDOC ---
Provider Note Provider Note [id number] VIANCA ALVES MD March 22, 2019 09:06
--- NOTE | 2019-03-22 09:44 | HP ---
ADMIT DATE: CHIEF COMPLAINT: Headache and upper back pain. HISTORY OF PRESENT ILLNESS: A 63-year-old white female with a previous history of coronary artery disease and stent placements, last about 3 years ago. She has had 5 days of diffuse headache without any obvious cause and no response from the Imitrex that she was given yesterday. She began having some of her left-sided back pain, which is reminiscent of previous angina that she has had before when she had the stent placed last. She has been compliant with all her meds and has not been on any new medications and has not changed her caffeine intake lately. Her pain has since resolved and her troponin x 3 had been negative so far. PAST MEDICAL HISTORY: Well documented in the old record. MEDICATIONS: Listed at home. SOCIAL HISTORY: Still smokes. Nondrinker, single, employed. FAMILY HISTORY: Unremarkable. REVIEW OF SYSTEMS: No other complaints. OBJECTIVE: HEENT: All within normal limits. Temporal arteries are nontender. Pupils are reactive. NECK: Revealed no carotid bruits, nodes or masses. LUNGS: Clear. CARDIOVASCULAR: Regular rate. No murmur. ABDOMEN: Soft, benign and nontender. EXTREMITIES: Unremarkable. Distal pulses are diminished. NEUROLOGIC AND PHYSIOLOGIC: Nonfocal. ASSESSMENT: 1. Upper left-sided back pain, reminiscent of previous anginal equivalent. She is at risk for further coronary artery disease given her tobacco use and previous coronary stent placements. 2. Persistent headache, etiology undetermined. 3. Tobaccoism. PLAN: CT head, cardiovascular consultation, sed rate. VIANCA ALVES MD DR: JOHN/teodoro JOB#: [id number] / [id number]
--- NOTE | 2019-03-22 09:45 | PDOC2 ---
ARGENTINA HERNANDEZ ASSOCIATE PROFESSOR OF ARCHAEOLOGY 03/22/19 0945: CARDIAC CONSULT DATE OF CONSULT Date of Consult DATE: 03/22/19 TIME: 09:38 REASON FOR CONSULT Reason for Consult: Chest pain REFERRING PHYSICIAN Referring Physician: Dr. Morgan SOURCE Source: Chart review, Patient HISTORY OF PRESENT ILLNESS HISTORY OF PRESENT ILLNESS This is a 63 yo female, with a history of CAD s/p PCI/YOBANY to LAD, RCA, adn LCx, who presented secondary to chest pain/upper back pain. Patient reports onset of pain yesterday. Reports pain to be exact same as what she previously experienced with AK requiring PCI/stents. No dizziness, diaphoresis, palpitations, shortness of breath, or nausea/vomiting. PAST MEDICAL HISTORY Cardiovascular: CAD, CHF, HTN, [place], Hyperlipidemia, Other (carotid stenosis, LAD thrombus ) GI: GERD Psych: Anxiety PAST SURGICAL HISTORY Past Surgical History: Total hip replacement, Hysterectomy, Other (right carotid endarterectomy ) FAMILY HISTORY Family History: Coronary Artery Disease, Heart Disease, Hypertension SOCIAL HISTORY Smoke: <1 pack per day ALCOHOL: none Drugs: None Lives: with Family CURRENT MEDICATIONS CURRENT MEDICATIONS Current Medications Medications (Trade) Dose Ordered Sig/Luci Route PRN Reason Start Time Stop Time Status Last Admin Dose Admin Lorazepam (Ativan Inj) 1 mg 1X ONCE IV 03/21/19 13:15 03/21/19 13:16 DC 03/21/19 13:31 Aspirin (Children'S Aspirin) 324 mg 1X ONCE PO 03/21/19 13:15 03/21/19 13:40 DC 03/21/19 13:29 Metoprolol Tartrate (Lopressor Vial) 5 mg 1X ONCE IVP 03/21/19 14:15 03/21/19 14:27 DC 03/21/19 15:06 Nitroglycerin (Nitro-Bid Oint) 1 inch 1X ONCE TP 03/21/19 14:15 03/21/19 14:27 DC 03/21/19 14:15 Atorvastatin Calcium (Lipitor) 40 mg QHS PO 03/21/19 21:00 03/21/19 21:00 Acetaminophen (Tylenol) 1,000 mg PRN Q6HRS PRN PO PAIN 03/22/19 06:00 03/22/19 06:13 ALLERGIES ALLERGIES: Coded Allergies: naproxen (Verified Adverse Reaction, Unknown, Nausea and Vomiting, 01/10/17) ROS Review of System 14 point ROS conducted with pertinent positives noted above in HPI. PHYSICAL EXAM General: Alert, Oriented X3, Cooperative, No acute distress HEENT: Atraumatic, Mucous membr. moist/pink Lungs: Clear to auscultation Heart: Regular rate, Normal S1, Normal S2 Abdomen: Soft Extremities: No edema, Normal pulses Skin: No significant lesion Neuro: Normal speech, Sensation intact Psych/Mental Status: Mental status NL, Mood NL MUSCULOSKELETAL: Osteoarthritic changes both hands VITALS VITALS Vital Signs Date Time Temp Pulse Resp B/P (MAP) Pulse Ox O2 Delivery O2 Flow Rate FiO2 03/22/19 07:00 97.8 68 18 140/82 (101) 98 Room Air 97.8 LABS Lab: Laboratory Tests Test 03/21/19 12:10 03/21/19 18:05 03/22/19 05:45 White Blood Count 7.0 x10^3/uL (4.0-11.0) 7.1 x10^3/uL (4.0-11.0) Red Blood Count 4.92 x10^6/uL (3.50-5.40) 4.47 x10^6/uL (3.50-5.40) Hemoglobin 15.6 g/dL (12.0-15.5) 14.5 g/dL (12.0-15.5) Hematocrit 46.6 % (36.0-47.0) 42.5 % (36.0-47.0) Mean Corpuscular Volume 95 fL (79-100) 95 fL (79-100) Mean Corpuscular Hemoglobin 32 pg (25-35) 32 pg (25-35) Mean Corpuscular Hemoglobin Concent 34 g/dL (31-37) 34 g/dL (31-37) Red Cell Distribution Width 14.0 % (11.5-14.5) 13.8 % (11.5-14.5) Platelet Count 266 x10^3/uL (140-400) 234 x10^3/uL (140-400) Neutrophils (%) (Auto) 59 % (31-73) 58 % (31-73) Lymphocytes (%) (Auto) 33 % (24-48) 32 % (24-48) Monocytes (%) (Auto) 7 % (0-9) 9 % (0-9) Eosinophils (%) (Auto) 1 % (0-3) 2 % (0-3) Basophils (%) (Auto) 1 % (0-3) 1 % (0-3) Neutrophils # (Auto) 4.1 x10^3uL (1.8-7.7) 4.1 x10^3uL (1.8-7.7) Lymphocytes # (Auto) 2.3 x10^3/uL (1.0-4.8) 2.2 x10^3/uL (1.0-4.8) Monocytes # (Auto) 0.5 x10^3/uL (0.0-1.1) 0.6 x10^3/uL (0.0-1.1) Eosinophils # (Auto) 0.1 x10^3/uL (0.0-0.7) 0.1 x10^3/uL (0.0-0.7) Basophils # (Auto) 0.0 x10^3/uL (0.0-0.2) 0.0 x10^3/uL (0.0-0.2) Sodium Level 142 mmol/L (136-145) 142 mmol/L (136-145) Potassium Level 3.5 mmol/L (3.5-5.1) 3.8 mmol/L (3.5-5.1) Chloride Level 103 mmol/L (98-107) 104 mmol/L (98-107) Carbon Dioxide Level 29 mmol/L (21-32) 26 mmol/L (21-32) Anion Gap 10 (6-14) 12 (6-14) Blood Urea Nitrogen 10 mg/dL (7-20) 11 mg/dL (7-20) Creatinine 0.8 mg/dL (0.6-1.0) 0.8 mg/dL (0.6-1.0) Estimated GFR (Cockcroft-Gault) 72.9 72.9 BUN/Creatinine Ratio 13 (6-20) 14 (6-20) Glucose Level 106 mg/dL (70-99) 116 mg/dL (70-99) Calcium Level 9.2 mg/dL (8.5-10.1) 8.7 mg/dL (8.5-10.1) Magnesium Level 2.0 mg/dL (1.8-2.4) Total Bilirubin 0.2 mg/dL (0.2-1.0) 0.2 mg/dL (0.2-1.0) Aspartate Amino Transf (AST/SGOT) 23 U/L (15-37) 24 U/L (15-37) Alanine Aminotransferase (ALT/SGPT) 34 U/L (14-59) 34 U/L (14-59) Alkaline Phosphatase 57 U/L (46-116) 54 U/L (46-116) Creatine Kinase 69 U/L (26-192) Creatine Kinase MB (Mass) 5.4 ng/mL (0.0-3.6) Creatine Kinase MB Relative Index % (0-4) Troponin I Quantitative < 0.017 ng/mL (0.000-0.055) < 0.017 ng/mL (0.000-0.055) < 0.017 ng/mL (0.000-0.055) TJ-Ufk-F-Type Natriuretic Peptide 168 pg/mL (0-124) Total Protein 7.3 g/dL (6.4-8.2) 6.0 g/dL (6.4-8.2) Albumin 3.6 g/dL (3.4-5.0) 3.2 g/dL (3.4-5.0) Albumin/Globulin Ratio 1.0 (1.0-1.7) 1.1 (1.0-1.7) Triglycerides Level 78 mg/dL (0-150) Cholesterol Level 147 mg/dL (0-200) LDL Cholesterol, Calculated 86 mg/dL (0-100) VLDL Cholesterol, Calculated 16 mg/dL (0-40) Non-HDL Cholesterol Calculated 102 mg/dL (0-129) HDL Cholesterol 45 mg/dL (40-60) Cholesterol/HDL Ratio 3.3 ECHOCARDIOGRAM ECHOCARDIOGRAM <Conclusion> Hypokinesis of distal anterior and anteoseptal combs and entire apical wall. The Ejection Fraction is 40-45%. Transmitral Doppler flow pattern is Grade I-abnormal relaxation pattern. Trace mitral regurgitation. Trace tricuspid valve regurgitation noted with an estimated PAP of 25 mmHg. There is no evidence of significant pericardial effusion. DATE: 02/11/19 1144 STRESS TEST STRESS TEST Conclusion 1. No EKG evidence of stressed induced ischemia. 2. Nuclear imaging shows an anterior apical infarct with possible mild shakeel- infarct ischemia. 3. Left ventricular systolic function shows apical hypokinesis with an ejection fraction of 53%. 4. Moderate to moderately low risk Lexiscan nuclear stress test. DATE: 02/07/18 1235 HEART CATH HEART CATH FINDINGS 1. Hemodynamics: Left ventricular end-diastolic pressure 19 mmHg. No pullback gradient across the aortic valve. 2. Left ventriculography: Severe hypokinesis of the mid to distal anterolateral wall and the apical wall with ejection fraction estimated at 40%. No significant mitral regurgitation seen. 3. Coronary angiography: a. The left main coronary artery arose from the left sinus of Valsalva, gave rise to the left anterior descending and left circumflex arteries and did not show any significant stenosis. b. The left anterior descending artery showed widely patent stent in the proximal and mid segments. c. The left circumflex artery showed 90% stenosis involving the mid segment. d. The right coronary artery was a dominant vessel arising from the right sinus of Valsalva that showed widely patent stent in the proximal to midsegment. Conclusion 1. 90% stenosis involving the left circumflex artery. The previous to placed stents in the left anterior descending and right coronary arteries were patent. 2. Successful PCI/drug eluting stent placement to the left circumflex artery. 3. Severe hypokinesis of the mid to distal anterolateral wall and the apical wall with ejection fraction estimated at 40%. Recommendations 1. Aspirin 325 mg daily 2. Effient 10 mg daily for preferably one year. 3. Cardiovascular risk factor modification including smoking cessation. DATE: 08/12/16 1137 ASSESSMENT/PLAN ASSESSMENT/PLAN 1. STORY; as per PCP 2. Chest, left shoulder, back pain. concerns for UA. Patients reports pain to be exact same as what she previously experienced with each AK. 3. CAD s/p PCI/YOBANY to LAD and RCA 12/2014 and PCI/YOBANY to LCx 07/2016 4. Chronic systolic HF with ICM; LVEF 40-45%. Clinically compensated 5. Hypertension; labile upon arrival. no controlled 6. Hyperlipidemia; statin. l 7. Tobaccoism Recommendations Resume secondary prevention measures Given significant risk factors/history of presentation matching previous AK requiring PCI/stents, will plan for cardiac cath for definitive evaluation. R/b/a discussed and patient agreeable Will proceed with this afternoon ANJALI OTERO MD 03/25/19 1718: CARDIAC CONSULT ASSESSMENT/PLAN ASSESSMENT/PLAN Late entry for 03/22/2019. Pt. seen and examined. Agree with above [employer] note. ARGENTINA HERNANDEZ APRN March 22, 2019 09:45 ANJALI OTERO MD Mar 25, 2019 17:18
--- NOTE | 2019-03-22 10:45 | RAD ---
CT of the head without contrast, 03/22/2019: HISTORY: Persistent headache The ventricles are within normal limits in size. There is no shift of the midline structures. There is no evidence of acute intracranial hemorrhage or mass effect. No fluid is evident in the paranasal sinuses. IMPRESSION: No acute intracranial abnormality is detected. RS Compliance Statement: One or more of the following individualized dose reduction techniques were utilized for this examination: 1. Automated exposure control 2. Adjustment of the mA and/or kV according to patient size 3. Use of iterative reconstruction technique Electronically signed by: Juan Jose Nguyen MD (03/22/2019 10:43 AM) [facility]
[2019-03-22 11:49] LABS: PROTHROMBIN TIME PATIENT 13.1 SEC (11.7-14.0)
--- NOTE | 2019-03-22 12:29 | NUR ---
SS following for discharge planning. SS reviewed pt chart. Pt is from home with spouse and is currently on room air. No discharge needs noted at this time. SS will continue to follow for discharge planning.
[2019-03-22] MEDS ORDERED: ALPRAZolam 0.5 MG TABLET PO PRN (12:30)
[2019-03-22] MEDS ORDERED: HYDROcodone/APAP 5/325MG 1 TAB TABLET PO PRN (12:30)
[2019-03-22] MEDS ORDERED: LIDOCAINE 1% PF 2 ML VIAL. ONE (12:30)
[2019-03-22] MEDS ORDERED: IODIXANOL 320 MG/ML 100 ML VIAL. ONE (12:30)
[2019-03-22] MEDS ORDERED: ALPRAZolam 1 MG TABLET PO ONE (12:30)
[2019-03-22] MEDS ORDERED: fentaNYL PF VIAL 100 MCG/2 ML VIAL ONE ×2 (12:36→13:46)
[2019-03-22] MEDS ORDERED: VERAPAMIL 5 MG/2 ML VIAL. ONE ×2 (12:36)
[2019-03-22] MEDS ORDERED: NITROGLYCERIN 200 MCG/2 ML SYRINGE FOR CATH/VASC LAB. ONE ×2 (12:36→13:26)
[2019-03-22] MEDS ORDERED: HEPARIN for IV BOLUS 10,000 UNIT/10 ML VIAL. ONE (12:36)
[2019-03-22] MEDS ORDERED: MIDAZOLAM HCL/PF 2 MG/2 ML VIAL. ONE ×3 (12:36→13:46)
[2019-03-22] MEDS ORDERED: LIDOCAINE 1% Multi-Dose 20 ML VIAL. ONE (13:12)
[2019-03-22] MEDS ORDERED: LIDOCAINE 1% PF 2 ML VIAL. INJ ONE (13:15)
[2019-03-22] MEDS ORDERED: MIDAZOLAM HCL/PF 2 MG/2 ML VIAL. IV ONE (13:15)
[2019-03-22] MEDS ORDERED: HEPARIN for IV BOLUS 10,000 UNIT/10 ML VIAL. IART ONE (13:15)
[2019-03-22] MEDS ORDERED: NITROGLYCERIN 200 MCG/2 ML SYRINGE FOR CATH/VASC LAB. IART ONE (13:15)
[2019-03-22] MEDS ORDERED: fentaNYL PF VIAL 100 MCG/2 ML VIAL IV ONE (13:15)
[2019-03-22] MEDS ORDERED: IODIXANOL 320 MG/ML 100 ML VIAL. IART ONE (13:15)
[2019-03-22] MEDS ORDERED: VERAPAMIL 5 MG/2 ML VIAL. IART ONE (13:15)
[2019-03-22] MEDS ORDERED: LIDOCAINE 1% Multi-Dose 20 ML VIAL. INJ ONE (13:15)
[2019-03-22] MEDS ORDERED: PRASUGREL 10 MG TABLET. PO ONE (13:45)
[2019-03-22] MEDS ORDERED: ASPIRIN 325 MG TABLET PO ONE (13:45)
[2019-03-22] MEDS ORDERED: HEPARIN for IV BOLUS 10,000 UNIT/10 ML VIAL. IV ONE (13:45)
[2019-03-22] MEDS ORDERED: IV NORMAL SALINE 1000ML BAG 1,000 ML IV ONE (13:45)
[2019-03-22] MEDS ORDERED: HYDROcodone/APAP 5/325MG 1 TAB TABLET PO ONE (16:00)
--- NOTE | 2019-03-22 16:04 | CARD ---
MR#: [id number] Date of Study: 03/22/2019 Ordering Physician: ARGENTINA HERNANDEZ, Referring Physician: VIANCA ALVES Tech: ANIL BAUER RTR APPROVED REPORT Technologist: ANIL BAUER RTR Nurse: Rosana Burciaga R.N. Procedure(s) performed: MODERATE SEDATION TIME:68 MINUTES FLUORO TIME:4.9 MIN DOSE: 66.1 GYCM2 CONTRAST: 129 LHC, Coronary angiography, Left ventriculogram iFR of the LAD PCI of the LAD HISTORY The patient is a 63 year-old female with a history of : coronary artery disease, tobacco history() , hypertension, dyslipidemia. INDICATION The indication(s) include : unstable angina . CSHA Clinical Frailty Scale CSHA Clinical Frailty Scale: Managing Well Heart Failure Heart Failure: No PROCEDURE NARRATIVE After explaining the risks and benefits of the procedure and alternatives, informed consent was obtai chencho. The patient was brought electively to the cardiac catheterization lab in a fasting state. A andrews eout was performed confirming the patient's name, date of , procedure, and site of procedure. A ll necessary personnel were wearing the appropriate protective equipment and radiation monitor device s. (See nursing notes for medications administered). Due to a failed modified allens test, the right groin was sterilely prepped and draped in the usual f ashion. The right groin was infiltrated with 10 mL of 2% lidocaine for subcutaneous anesthesia. A 6 F sheath was inserted into the right femoral artery without difficulty. Right and left coronary ang iography was performed using a JR4 and JL4 catheter. Left ventricular end diastolic pressure was obt ained with a pigtail catheter and pullback was performed after left ventriculography. HEMODYNAMICS: AO: 140/90 LVEDP 5 mm Hg No gradient on LV to aortic pullback. LEFT VENTRICULOGRAM: EF 45% Anterobasal: Normal. Anterolateral: Akinetic and aneurysmal Apical:Akinetic Diaphragmatic: Normal Posterobasal: Normal *No significant mitral regurgitation or aortic insufficiency. CORONARY ANGIOGRAPHY: LM is a large caliber vessel with normal angiographic appearance. LAD is a large caliber vessel with a patent proximal and mid stents. There is a 60% distal stent edge stenosis. D1 is a moderate caliber vessel with normal angiographic appearance. There is a dominant 1st septal nurse wound with an ostial 40% stenosis. LCx is a moderate caliber non-dominant vessel with patent proximal stents. OM1 is a moderate caliber vessel with normal angiographic appearance. RCA is a large caliber dominant vessel with a patent proximal stent with 30% ISR. RPDA is a small caliber vessel with normal angiographic appearance. INTERVENTIONAL TECHNIQUE: PCI OF THE LAD The patient was given Heparin for anticoagulation. Due to intermediate LAD lesion, an iFR study was p erformed in the setting of unstable angina. Through a JL4 guide catheter, a 0.014'' Pressure wire was advanced to the distal LAD after appropriate normalization. Intracoronary NTG was administered at th e iFR value was measured at 0.84. Next, a 2.5/12 mm Resolute YOBANY was advanced and placed in an overla pping fashion with the previous mid stent. The stent was post-dilated with a 3.0 mm NC balloon at 18 zaire. Final post-PCI angiography demonstrated excellent stent expansion with JANEEN 3 flow in the vessel . No evidence of guide or wire related complications. All catheter exchanges and advancements were performed over a guidewire. At case completion the righ t femoral sheath was removed and hemostasis was achieved with an Angioseal Device after limited femor al angiography confirmed adequate vessel size and anatomy. There were no acute complications. JANEEN Flow JANEEN Flow (Pre-Intervention): JANEEN-3 JANEEN Flow (Post-Intervention): JANEEN-3 Conclusion 1. Normal left sided filling pressures. 2. Mild LV dysfunction. EF 45%. Anterolateral aneurysm. 3. Three vessel coronary disease with patent stents in the LAD, LCx and RCA 4. Successful PCI of the mid LAD stent edge stenosis with implantation of a Resolute 2.5/12 mm YOBANY, p ost-dilated with a 3.0 mm NC balloon 5. Angioseal closure of the RCFA arteriotomy Recommendations ASA 81mg daily Prasugrel 10mg daily High dose statin therapy Counseled extensively on smoking cessation. Signed by : Alessandro Granda, Electronically Approved : 03/22/2019 16:03:31
--- NOTE | 2019-03-22 17:07 | RAD ---
MR#: [id number] Date of Study: 03/22/2019 Ordering Physician: ARGENTINA HERNANDEZ, Referring Physician: VIANCA ALVES Tech: Kong David MBA, RDMS, RVT, RDCS, RTR APPROVED REPORT Patient Location: IN-PATIENT Indications Rest Pain:Right VELOCITY AND DOPPLER WAVEFORM ANALYSIS RIGHT cm/secWaveformSeverity LEFT cm/secWaveform Severity dCFA 139.0BiphasicdCFA Prof Fem Art. 76.0BiphasicProf Fem Art. Fem Art Prox. 131.0BiphasicFem Art Prox. Fem Art Mid. 117.0BiphasicFem Art Mid. Fem Art Dist. 109.0BiphasicFem Art Dist. Pop Art(Fossa) 44.0BiphasicPop Art(AK) FRONT CLERK Prox. 57.0BiphasicPTA Prox. FRONT CLERK Dist. 81.0BiphasicPTA Dist. Per Art Mid. 69.0BiphasicPer Art Mid. OLIVIER Prox. 54.0BiphasicATA Prox. DPA 55BiphasicDPA Findings Grayscale images of the common femoral artery do not reveal any obvious evidence of thrombus or signi ficant stenosis. Color Doppler and spectral images of the right common femoral artery to the below-knee vessels demons trate biphasic waveforms without any significant velocity acceleration or deceleration. No obvious va scular pathology noted. No groin hematoma noted. No obvious AV fistula or pseudoaneurysm noted. Critical Notification Critical Value: No <Conclusion> 1. Mild right lower ext arterial disease without any evidence of hematoma, AV fistula or pseudoaneury sm. Signed by : Alessandro Granda, Electronically Approved : 03/22/2019 17:07:24
--- NOTE | 2019-03-22 18:04 | PDOC ---
Provider Note Provider Note Post cath patient had severe groin and right thigh pain. By exam no abn noted. Normal dopplerable pulses and no hematoma. Vascular ultrasound unremarkable. CT scan prelim review by me does not reveal any significant pathology in the right groin ? patient has low pain tolerance. Will await CT final read. Supportive care. Can still be discharged in a.m. Will repeat CBC in a.m thanks ANJALI OTERO MD March 22, 2019 18:04
--- NOTE | 2019-03-22 18:15 | RAD ---
CT scan of the abdomen and pelvis without contrast 03/22/2019 CLINICAL HISTORY: Severe groin pain post cardiac catheterization. TECHNIQUE: Unenhanced, contiguous, 5 mm axial sections were obtained through the abdomen and pelvis. One or more of the following individualized dose reduction techniques were utilized for this study: 1. Automated exposure control. 2. Adjustment of the mA and/or kV according to patient size. 3. Use of iterative reconstruction technique. FINDINGS: Comparison study is dated 12/13/2016. Images through the lung bases demonstrate mild cardiomegaly. Dependent subsegmental atelectasis is seen involving both lower lobes. Low-attenuation lesions are seen involving both lobes of the liver which likely reflect hepatic cysts. These measure 3 mm to 2.5 cm in size. The spleen, pancreas and adrenal glands are within normal limits. Rounded low-attenuation lesions are seen involving both kidneys which likely reflect cysts. These measure 5 mm to 3.8 cm in size. Contrast is seen within both collecting systems consistent with patient's history of a cardiac catheterization earlier today. There is no evidence of obstruction of either collecting system. Atherosclerotic calcification abdominal aorta is seen. The abdominal aorta is ectatic but tapers normally. The gallbladder is well-distended. No free fluid or free air is seen within the abdomen. There is no evidence of bowel obstruction. The appendix is well-visualized and is within normal limits. Images through the pelvis demonstrate the urinary bladder distended with contrast and urine. The patient is post left SITA. No free fluid is seen. No pelvic hematoma is noted. No retroperitoneal hematoma is seen. Patchy increased density seen within the subcutaneous fat in the right inguinal region which would be consistent with the patient's history of a catheterization procedure earlier today. No well-defined hematoma is seen. Degenerative changes are seen involving lower thoracic and throughout the lumbar spine along with the right hip. IMPRESSION: No acute abnormality is seen. Electronically signed by: Manish Marin MD (03/22/2019 6:12 PM) [facility]
[2019-03-22] MEDS ORDERED: ATORVASTATIN CALCIUM 40 MG TABLET. PO SCH (21:00)
[2019-03-22] MEDS: ATORVASTATIN CALCIUM 40 MG TABLET. PO SCH (21:36)
[2019-03-23 03:24] VITALS: BP 145/71
[2019-03-23 05:01] LABS: HEMATOCRIT 41.6 % (36.0-47.0); HEMOGLOBIN 13.9 g/dL (12.0-15.5); RED BLOOD COUNT 4.35 x10^6/uL (3.50-5.40); RED CELL DISTRIBUTION WIDTH 13.8 % (11.5-14.5)
[2019-03-23] MEDS: PRASUGREL 10 MG TABLET. PO SCH (08:00)
[2019-03-23] MEDS: ASPIRIN CHEWABLE 81 MG TABLET. PO SCH (08:11)
[2019-03-23 08:15] VITALS: BP 144/74
[2019-03-23] MEDS: LISINOPRIL 5 MG TABLET. PO SCH (08:15)
[2019-03-23] MEDS: CARVEDILOL 3.125 MG TABLET. PO SCH (08:15)
--- NOTE | 2019-03-23 10:39 | NUR ---
Discharge Note: TRIP ROCHA Discharge instructions and discharge home medications reviewed with Patient and a copy given. All questions have been answered and understanding verbalized. The following instructions and handouts were given: Chest pain, hypertension, CAD, post cardiac catheterization discharge instructions. Discontinued lines and drains: peripheral IV in left AC removed. Catheter intact. No complications. Patient discharged to home with self-care via ambulation to private vehicle. Patient was anxious to get home. Pt. spouse at bedside when DC instructions were provided.
--- NOTE | 2019-03-23 21:45 | DS ---
DATE OF DISCHARGE: 03/23/2019 PRIMARY DIAGNOSIS: Unstable angina. ADDITIONAL DIAGNOSES: Chest pain, coronary artery disease with stenting of LAD, headache of uncertain etiology, anxiety, hyperlipidemia. CHIEF COMPLAINT AND HISTORY OF PRESENT ILLNESS: This 63-year-old white female with history of coronary artery disease, presented with left upper back pain, reminiscent of her angina prior. She also had headache. CT scanning of the head was normal as was chest x-ray. Sed rate 10. Labs were fairly unremarkable. She was taken for heart catheterization where she was found to have a 60% distal stent edge stenosis in the LAD, which was remedied with a second overlapping stent with excellent flow after. Postoperatively, she had some groin pain resulting in a CT abdomen and pelvis and right lower extremity arterial Doppler that were normal. Upon seeing her on the morning of discharge, the patient was pushing very hard for discharge and was stating that she would leave anyway if she was not as she felt much better and was felt she was ready for discharge and this was accomplished. DISPOSITION: The patient is discharged to home. DIET: Regular, low fat diet. ACTIVITY: As tolerated. Office with Dr. Palencia in one week. Smoking cessation was discussed once again with the patient. DISCHARGE MEDICATIONS: Listed on the med rec and have been addressed. MICHELLE SCHREIBER MD DR: SONJA/teodoro JOB#: [id number] / [id number] Alcides Diallo MD
== END 2019-03-23 08:39 | disposition home or self-care (01) | DRG 247 ==
LOC: ER 11:58 → OBSVTOIN 14:20 → 2 NORTH 14:20
PROVIDERS: ADMIT Family Medicine; ATTEND Family Medicine
PROC: 027034Z Dilation of Coronary Artery, One Artery with Drug-eluting Intraluminal Device, Percutaneous Approach (ICD-10-PCS; principal; 2019-03-22)
PROC: 4A023N7 Measurement of Cardiac Sampling and Pressure, Left Heart, Percutaneous Approach (ICD-10-PCS; 2019-03-22)
PROC: B2151ZZ Fluoroscopy of Left Heart using Low Osmolar Contrast (ICD-10-PCS; 2019-03-22)
PROC: B2111ZZ Fluoroscopy of Multiple Coronary Arteries using Low Osmolar Contrast (ICD-10-PCS; 2019-03-22)
PROC: 4A033BC Measurement of Arterial Pressure, Coronary, Percutaneous Approach (ICD-10-PCS; 2019-03-22)
DX: T82.855A Stenosis of coronary artery stent, initial encounter (principal); I25.110 Atherosclerotic heart disease of native coronary artery with unstable angina pectoris; I50.22 Chronic systolic (congestive) heart failure; R07.89 Other chest pain; E78.00 Pure hypercholesterolemia, unspecified; E78.5 Hyperlipidemia, unspecified; I11.0 Hypertensive heart disease with heart failure; F41.9 Anxiety disorder, unspecified; G43.909 Migraine, unspecified, not intractable, without status migrainosus; I25.5 Ischemic cardiomyopathy; K21.9 Gastro-esophageal reflux disease without esophagitis; F17.210 Nicotine dependence, cigarettes, uncomplicated; Z96.649 Presence of unspecified artificial hip joint; I25.2 Old myocardial infarction; Z82.49 Family history of ischemic heart disease and other diseases of the circulatory system; Z95.5 Presence of coronary angioplasty implant and graft; Z90.710 Acquired absence of both cervix and uterus; Z88.8 Allergy status to other drugs, medicaments and biological substances; Z71.6 Tobacco abuse counseling; Z79.899 Other long term (current) drug therapy
CPT/HCPCS: 92928; 93458; 93571; 99285; G0269; 36415; 70450; 71046; 74176; 80053; 80061; 82553; 83735; 83880; 84484; 85025; 85027; 85347; 85610; 85651; 93005; 93923; 96374; 96375; 99152; 99153; C1725; C1760; C1769; C1874; C1887; C1892; J1644; J2060; J2250; J3010; J3490; J7030; Q9967; C1771

== ENCOUNTER → 2019-07-31 | Outpatient (CLI) | payer OTHER ==
[~2019-07-31] MED LIST changes: +OXYC1TAB15 PO
--- NOTE | 2019-07-31 12:51 | RAD ---
Ultrasound right breast 07/31/2019 INDICATION: Right breast mass. COMPARISON: Ultrasound right breast 01/11/2019 TECHNIQUE: Sonographic evaluation of the right breast was performed utilizing grayscale and color Doppler. FINDINGS: At the 7:00 position, 3 some initial the nipple there is a 6 x 4 x 6 mm circumscribed oval hypoechoic mass without definite posterior characteristics. There is a linear echogenic region centrally which may represent a thin septation or fatty hilum. Differential considerations include a fibroadenoma versus complicated cyst versus intramammary lymph node. Findings have marginally increased in size, previously measuring 7 x 4 x 2 mm. Given marginal increase in size, 3 month follow-up ultrasound is recommended. IMPRESSION: Probably benign findings of the right breast with marginal increase in a probably benign right breast mass. 3 month follow-up ultrasound is recommended. BI-RADS Category 3, probably benign findings. Recommendations: Recommend 3 month follow-up right breast ultrasound. Electronically signed by: Trish Stuart MD (07/31/2019 12:48 PM) [facility]
== END | disposition home or self-care (01) ==
LOC: US 12:18
PROVIDERS: ATTEND Family Medicine
DX: R92.8 Other abnormal and inconclusive findings on diagnostic imaging of breast (principal)
CPT/HCPCS: 76641

== ENCOUNTER 2019-08-02 19:52 | Emergency (ER) | payer OTHER ==
[~2019-08-02] VITALS: Ht 167.6 cm; Wt 72.6 kg
[~2019-08-02 19:52] MED LIST changes: -OXYC1TAB15 PO
[2019-08-02 20:19] VITALS: BP 176/86
--- NOTE | 2019-08-02 20:23 | PHYS DOC ---
Past Medical History Past Medical History: Anxiety, High Cholesterol, Hypertension, [place], Migraines, Other Additional Past Medical Histor: ulcer, stemi Past Surgical History: Hip Replacement, Hysterectomy, Other Additional Past Surgical Histo: right ankle, jaw, cardiac stent X3 Alcohol Use: None Drug Use: None Adult General Chief Complaint Chief Complaint: NOSEBLEED HPI HPI Patient is a 64 year old female who presents with 1943 patient began having a nosebleed. Patient is on Plavix blood thinners due to her OK history. Patient denies any pain and states she's been taking all her medications as prescribed. Review of Systems Review of Systems HENT: Denies nasal congestion or sore throat. Nose bleed. [] All other systems were reviewed and found to be within normal limits, except as documented in this note. Current Medications Current Medications Current Medications Medications (Trade) Dose Ordered Sig/Luci Start Time Stop Time Status Last Admin Dose Admin Oxycodone/ Acetaminophen (Percocet 5/325) 1 tab 1X ONCE 08/02/19 22:15 08/02/19 22:02 DC 08/02/19 21:57 1 TAB Oxymetazoline HCl (Afrin) 2 spray 1X ONCE 08/02/19 20:30 08/02/19 20:31 DC 08/02/19 20:30 2 SPRAY Allergies Allergies Allergies Coded Allergies Type Severity Reaction Last Updated Verified naproxen Adverse Reaction Mild Nausea and Vomiting 08/02/19 Yes Physical Exam Physical Exam Constitutional: Well developed, well nourished, no acute distress, non-toxic appearance. [] HENT: Normocephalic, atraumatic, bilateral external ears normal, oropharynx moist, no oral exudates, nose bleed. [] Eyes: PERRLA, EOMI, conjunctiva normal, no discharge. [] Skin: Warm, dry, no erythema, no rash. [] Neurologic: Alert and oriented X 3, normal motor function, normal sensory function, no focal deficits noted. [] Psychologic: Affect normal, judgement normal, mood normal. [] Current Patient Data Vital Signs Vital Signs Date Time Temp Pulse Resp B/P (MAP) Pulse Ox O2 Delivery O2 Flow Rate FiO2 08/02/19 21:57 16 99 Nasal Cannula 08/02/19 20:19 97.9 88 176/86 (116) 97.9 EKG EKG [] Radiology/Procedures Radiology/Procedures [] Course & Med Decision Making Course & Med Decision Making Patient is a 64 year old female who presents with 1942 patient began having a nosebleed. Patient is on Plavix blood thinners due to her OK history. Patient denies any pain and states she's been taking all her medications as prescribed. Alert and oriented. Speaks in full clear sentences. Blood pressures in the 170s. Bleeding is controlled with pressure at this time. 1900: After pressure was held for 30 minutes and was released and I looked up the nose with a light. There is small bleeding bilateral nares but source can not be determined to continuos bleeding and blood in nares. Afrin was placed in eye lateral nostrils and pressure is again placed. Will reassess. 1929: After removing pressure bleeding has continued. Bilateral nasal balloons soaked in Afrin placed after patient blew her nostrils. Dr Diane is present. Patient is given Percocet prescription. Patient to follow up with ENT in 36 to 72 hours. 2199: Prior to patient leaving she states the right nare balloon fell out. Patient states she is going to where they will call in ENT and refuses to have the balloon replaced. Dragon Disclaimer Dragon Disclaimer This electronic medical record was generated, in whole or in part, using a voice recognition dictation system. Departure Departure Impression: Primary Impression: Bleeding nose Disposition: 01 HOME, SELF-CARE Condition: STABLE Referrals: VIANCA ALVES MD (PCP) DORA ALVES MD Patient Instructions: Nosebleed Additional Instructions: Follow up with ENT in 36-72 hours. Don not remove Balloons. If Balloons are removed bleeding may return. Scripts Oxycodone/Apap 5-325 (PERCOCET 5-325 MG TABLET ) 1 Each Tablet 1 TAB PO PRN Q6HRS PRN for PAIN, #10 TAB 0 Refills Prov: IRASEMA GARCIA APRN 08/02/19 IRASEMA GARCIA APRN Aug 02, 2019 20:23
[2019-08-02] MEDS ORDERED: OXYMETAZOLINE 0.05% NASAL SPRAY 30ML BOTTLE. NS ONE (20:30)
[2019-08-02] MEDS ORDERED: OXYC1TAB15 PO (21:49)
[2019-08-02] MEDS ORDERED: oxyCODONE/APAP 5/325 1 TAB TABLET PO ONE (22:15)
== END 2019-08-02 22:01 | disposition home or self-care (01) ==
LOC: ER 19:52
DX: R04.0 Epistaxis (principal); F41.9 Anxiety disorder, unspecified; E78.00 Pure hypercholesterolemia, unspecified; I10 Essential (primary) hypertension; I25.2 Old myocardial infarction; G43.909 Migraine, unspecified, not intractable, without status migrainosus; Z90.710 Acquired absence of both cervix and uterus; Z96.649 Presence of unspecified artificial hip joint; Z88.8 Allergy status to other drugs, medicaments and biological substances
CPT/HCPCS: 99283

== ENCOUNTER → 2019-08-12 | Outpatient (CLI) | payer OTHER ==
[2019-08-02 20:19] VITALS: BP 176/86
[~2019-08-12] MED LIST changes: +OXYC1TAB15 PO; +REGADENOSON 0.4 MG/5 ML DISP.SYRIN. IV ONE
--- NOTE | 2019-08-12 12:47 | RAD ---
MR#: [id number] Date of Study: 08/12/2019 Ordering Physician: AMAYA ADAIR Referring Physician: PHILIPPE ROSA Tech: CHARLY Harp APPROVED REPORT Test Type: Pharmacological Stress Nurse/Tech: Rosana Burciaga R.N. Test Indications: CAD Cardiac History: htn, 4 cardiac stents, smoker Medications: See Electronic Medical Record Medical History: See Electronic Medical Record Resting ECG: SR w/ inverted t waves in leads I,V1-V5, AVL Resting Heart Rate: 70 bpm Resting Blood Pressure: 136/61mmHg Pretest Chest Pain: No chest pain Nurse/Tech Notes S1S2, lungs CTA Consent: The procedure was explained to the patient in lay terms. Informed consent was witnessed. Gigi eout was entered into [employer]. History and Stress Test performed by CHARLY Harp Pharm. Details Pharmacologic stress testing was performed using 0.4mg per 5ml of regadenoson given intravenously ove r 7-10 seconds. Stress Symptoms SOA, nausea, general malaise POST EXERCISE Reason for Termination: Infusion complete Max HR: 105 bpm Max Blood Pressure: 151/68mmHg Blood Pressure response to exercise: Normal blood pressure response during stress. Heart Rate response to exercise: wnl Chest Pain: No. Arrhythmia: No. ST Change: No. inverted T waves in the V leads appear more upright after lexiscan INTERPRETATION Stress EKG Conclusion: Baseline EKG showed sinus rhythm with old anterior infarct. Non-diagnostic ch anges at peak stress. No arrhythmias. Imaging Protocol IMAGE PROTOCOL: Rest Tc-99m/stress Tc-99m 1 day Rest: Stress: Viability: Radiopharm.Tc99m ApbrtcjynDd08x Sestamibi Tvzn08jBy 33mCi Duration 15min. 13min. Img Date 08/12/2019 08/12/2019 Inj-Img Lllc01ulf. 60min. Rest Admin Site:IV - Left AntecubitalAdministrator:CHARLY Harp Stress Admin Site: IV - Left AntecubitalAdministrator: CHARLY Harp STRESS DATA End Diast. Vol.140.0mlLVEDV index BSA73.0ml End Syst. Vol.69.0mlLVESV index BSA36.0ml Myocardial Xymo098.0gEject. Oujkryve42.0% Stress Scores Regional WT0.00Summed WT29.00 Regional WM0.00Summed WM22.00 LV Perfusion Scintigraphic images showed a large predominantly fixed defect involving the mid to distal anterior w all and the entire apical wall consistent with previous myocardial infarction with very small amount of reversibility consistent with shakeel-infarct ischemia. Wall Motion Distal anterior wall hypokinesis and apical wall akinesis with ejection fraction calculated at 51%. LV Perf. Quant 17 Seg. SSS24.00 17 Seg. SRS22.00 17 Seg. SDS2.00 Stress Defect Extent (% LAD)66.30Rest Defect Extent (% LAD)62.50Rev. Defect Extent (% LAD)5.00 Stress Defect Extent (% LCX) 32.50Rest Defect Extent (% LCX)16.30Rev. Defect Extent (% LCX)28.80 Stress Defect Extent (% RCA)23.30Rest Defect Extent (% RCA)15.60Rev. Defect Extent (% RCA)6.70 Stress Defect Extent (% ELOISA)49.80Rest Defect Extent (% ELOISA)42.40Rev. Defect Extent (% ELOISA)10.20 Conclusion 1. Regadenoson cardioisotope stress test showed large infarct involving the mid to distal anterior wa ll and the entire apical wall with very small amount of shakeel-infarct ischemia. 2. Distal anterior wall hypokinesis and apical wall akinesis with ejection fraction calculated at 51% . 3. Low to intermediate risk for cardiac events. Signed by : Amaya Adair, Electronically Approved : 08/12/2019 12:47:08
== END | disposition home or self-care (01) ==
LOC: NM 10:29
PROVIDERS: ATTEND Internal Medicine Cardiovascular Disease
DX: I21.09 ST elevation (STEMI) myocardial infarction involving other coronary artery of anterior wall (principal); I21.29 ST elevation (STEMI) myocardial infarction involving other sites; I25.10 Atherosclerotic heart disease of native coronary artery without angina pectoris; I10 Essential (primary) hypertension; F17.200 Nicotine dependence, unspecified, uncomplicated; Z95.5 Presence of coronary angioplasty implant and graft
CPT/HCPCS: 78452; 93017; A9500; J2785

== ENCOUNTER → 2019-10-31 | Outpatient (CLI) | payer OTHER ==
[~2019-10-31] MED LIST changes: -REGADENOSON 0.4 MG/5 ML DISP.SYRIN. IV ONE; +SIMV40TA18 PO; -SIMV40TA3 PO
--- NOTE | 2019-10-31 15:30 | KCIC ---
EXAM: Pelvis and right hip, 3 views. HISTORY: Pain. COMPARISON: None. FINDINGS: A frontal view the pelvis and frontal and frog-leg views of the right hip are obtained. There is a left hip arthroplasty in expected position. There is cortical thickening involving the proximal left femoral diaphysis, likely reactive in etiology. There is mild right hip marginal osteophytosis. There is a suspected chronic fragmented osteophyte along the superior acetabulum. There are pelvic clips. There are surgical anchors within the pubic bones. IMPRESSION: 1. Mild right hip osteoarthritis. 2. Left hip arthroplasty. Electronically signed by: Perlita Clark MD (10/31/2019 3:27 PM) [facility]
== END | disposition home or self-care (01) ==
LOC: KCIC 14:36
PROVIDERS: ATTEND Physician Assistant Medical
DX: S76.011D Strain of muscle, fascia and tendon of right hip, subsequent encounter (principal); M16.11 Unilateral primary osteoarthritis, right hip; X58.XXXD Exposure to other specified factors, subsequent encounter
CPT/HCPCS: 73502

== ENCOUNTER 2019-11-26 22:00 | Emergency (ER) | payer OTHER ==
[~2019-11-26] VITALS: Ht 167.6 cm; Wt 175.0 kg
--- NOTE | 2019-11-26 22:27 | PHYS DOC ---
Past Medical History Past Medical History: Anxiety, High Cholesterol, Hypertension, MS, Migraines, Other Additional Past Medical Histor: ulcer, stemi Past Surgical History: Hip Replacement, Hysterectomy, Other Additional Past Surgical Histo: right ankle, jaw, cardiac stent X3 Alcohol Use: None Drug Use: None Adult General Chief Complaint Chief Complaint: HEADACHE HPI HPI Patient is a 64 year old Female who presents with today began having a headache that went from the back of her skull up to the front to her forehead. Patient states this is the worse headache she's ever felt. 10 out of 10. Patient is vomiting in the ED. She states that it started. She denies chest pain, shortness of air, vision changes, numbness or tingling, weaknesses. She does state she has photophobia. States she did take her blood pressure medications and she kept them down today. Patient has a history of MS, 3 cardiac stents, migraine, anxiety, high cholesterol, hypertension. Review of Systems Review of Systems Eyes: Denies change in visual acuity, redness, or eye pain. Photophobia[] GI: Denies abdominal pain. +nausea, vomiting, denies bloody stools or diarrhea [] Neurologic: headache, denies focal weakness or sensory changes [] All other systems were reviewed and found to be within normal limits, except as documented in this note. Current Medications Current Medications Current Medications Medications (Trade) Dose Ordered Sig/Luci Start Time Stop Time Status Last Admin Dose Admin Diphenhydramine HCl (Benadryl) 25 mg 1X ONCE 11/26/19 23:00 11/26/19 23:01 DC 11/26/19 22:32 25 MG Fentanyl Citrate (Fentanyl 2ml Vial) 50 mcg 1X ONCE 11/26/19 23:00 11/26/19 23:01 DC 11/26/19 22:32 50 MCG Prochlorperazine Edisylate (Compazine) 10 mg 1X ONCE 11/26/19 23:00 11/26/19 23:01 DC 11/26/19 22:32 10 MG Sodium Chloride 1,000 ml @ 1,000 mls/hr 1X ONCE 11/26/19 23:00 11/26/19 23:59 11/26/19 22:33 1,000 MLS/HR Allergies Allergies Allergies Coded Allergies Type Severity Reaction Last Updated Verified naproxen Adverse Reaction Mild Nausea and Vomiting 08/02/19 Yes Physical Exam Physical Exam Constitutional: Well developed, well nourished, no acute distress, non-toxic appearance. [] HENT: Normocephalic, atraumatic, bilateral external ears normal, oropharynx mo ist, no oral exudates, nose normal. [] Eyes: PERRLA, EOMI, conjunctiva normal, no discharge. [] Neck: Normal range of motion, no tenderness, supple, no stridor. [] Cardiovascular:Heart rate regular rhythm, no murmur [] Lungs & Thorax: Bilateral breath sounds clear to auscultation [] Abdomen: Bowel sounds normal, soft, no tenderness, no masses, no pulsatile masses. [] Skin: Warm, dry, no erythema, no rash. [] Back: No tenderness, no CVA tenderness. [] Extremities: No tenderness, no cyanosis, no clubbing, ROM intact, no edema. [] Neurologic: Alert and oriented X 3, normal motor function, normal sensory function, no focal deficits noted. [] Psychologic: Affect normal, judgement normal, mood normal. Normal Physical Exam[] Current Patient Data Vital Signs Vital Signs Date Time Temp Pulse Resp B/P (MAP) Pulse Ox O2 Delivery O2 Flow Rate FiO2 11/26/19 22:10 98.5 80 20 200/105 (136) 98 Room Air 98.5 Lab Values Laboratory Tests Test 11/26/19 22:25 White Blood Count 8.4 x10^3/uL (4.0-11.0) Red Blood Count 4.85 x10^6/uL (3.50-5.40) Hemoglobin 15.7 g/dL (12.0-15.5) H Hematocrit 46.4 % (36.0-47.0) Mean Corpuscular Volume 96 fL (79-100) Mean Corpuscular Hemoglobin 32 pg (25-35) Mean Corpuscular Hemoglobin Concent 34 g/dL (31-37) Red Cell Distribution Width 14.1 % (11.5-14.5) Platelet Count 253 x10^3/uL (140-400) Neutrophils (%) (Auto) 54 % (31-73) Lymphocytes (%) (Auto) 35 % (24-48) Monocytes (%) (Auto) 9 % (0-9) Eosinophils (%) (Auto) 2 % (0-3) Basophils (%) (Auto) 1 % (0-3) Neutrophils # (Auto) 4.5 x10^3/uL (1.8-7.7) Lymphocytes # (Auto) 2.9 x10^3/uL (1.0-4.8) Monocytes # (Auto) 0.7 x10^3/uL (0.0-1.1) Eosinophils # (Auto) 0.1 x10^3/uL (0.0-0.7) Basophils # (Auto) 0.1 x10^3/uL (0.0-0.2) Sodium Level 143 mmol/L (136-145) Potassium Level 3.7 mmol/L (3.5-5.1) Chloride Level 104 mmol/L (98-107) Carbon Dioxide Level 30 mmol/L (21-32) Anion Gap 9 (6-14) Blood Urea Nitrogen 12 mg/dL (7-20) Creatinine 0.8 mg/dL (0.6-1.0) Estimated GFR (Cockcroft-Gault) 72.7 BUN/Creatinine Ratio 15 (6-20) Glucose Level 106 mg/dL (70-99) H Calcium Level 9.2 mg/dL (8.5-10.1) Total Bilirubin 0.2 mg/dL (0.2-1.0) Aspartate Amino Transferase (AST) 19 U/L (15-37) Alanine Aminotransferase (ALT) 24 U/L (14-59) Alkaline Phosphatase 60 U/L (46-116) Troponin I Quantitative < 0.017 ng/mL (0.000-0.055) Total Protein 7.1 g/dL (6.4-8.2) Albumin 3.9 g/dL (3.4-5.0) Albumin/Globulin Ratio 1.2 (1.0-1.7) Laboratory Tests 11/26/19 22:25 Laboratory Tests 11/26/19 22:25 EKG EKG Sinus rhythm with non specific T wave depression. [] Interpretation Time: [address] Cross Radiology/Procedures Radiology/Procedures [] Impressions: [facility] [address] [place] [address] IMAGING REPORT Signed PATIENT: TRIP ROCHA ACCOUNT: [id number] : 1955 LOCATION: ER AGE: 64 SEX: F EXAM STATUS: REG ER ORD. PHYSICIAN: IRASEMA GARCIA APRN REASON: HTN, VOMITING PROCEDURE: PORTABLE CHEST 1V EXAM: AP View of the chest DATE: 11/26/2019 10:21 PM INDICATION: HTN, VOMITING COMPARISON: 03/21/2019 FINDINGS/ IMPRESSION: The heart is not enlarged. Aortic calcifications are seen. Mediastinal and hilar contours are stable. Patchy opacities left lung base likely atelectasis. No pleural effusion or pneumothorax. Electronically signed by: Jose Manzanares MD (11/26/2019 10:45 PM) [id number] DICTATED and SIGNED BY: JOSE MANZANARES MD DATE: 11/26/19 2245 [facility] [address] [place], [place] [id number] IMAGING REPORT Signed PATIENT: TRIP ROCHA ACCOUNT: [id number] : 1955 LOCATION: ER AGE: 64 SEX: F EXAM STATUS: REG ER ORD. PHYSICIAN: IRASEMA GARCIA APRN REASON: HTN WITH HEADACHE PROCEDURE: CT HEAD WO CONTRAST Exam: CT head INDICATION: Hypertension with headache TECHNIQUE: Sequential axial images through the head were obtained without the administration of IV contrast. Comparisons: None FINDINGS: No focal parenchymal lesion or hemorrhage is identified. There is no midline shift or sulcal effacement. No acute vascular territory infarction is identified. Olivares-white distinction is preserved. The ventricular system is within normal limits without compression hydrocephalus. The basal cisterns are well maintained. The visualized portions of the paranasal sinuses and mastoid air cells are well-pneumatized. No acute fractures. IMPRESSION: No acute intracranial abnormality. Exposure: One or more of the following in the visualized dose reduction techniques were utilized for this examination: 1. Automated exposure control 2. Adjustment of the MA and/or KV according to patient size Use of iterative of reconstructive technique Electronically signed by: Hoang Warren MD (11/26/2019 10:56 PM) [id number] DICTATED and SIGNED BY: HOANG WARREN MD DATE: 11/26/19 4242 Course & Med Decision Making Course & Med Decision Making Patient walked into the emergency room. Moves all extremities equally. She is sitting on the side of the bed vomiting upon walking in the room. Speaks in full clear sentences. Skin pink warm and dry. Alert and oriented. PERRLA. Lungs are clear to auscultation in all lobes. Denies any abdominal pain but is very nauseated and vomiting. No extremity swelling. Blood work is unremarkable. CT head and chest x-ray show no acute findings. Patient's was given Benadryl, Compazine, normal saline, Fentanyl in the ED. 2300: Patient's blood pressure is down to 160/74. Upon reexamination patient states she is feeling a lot better and her pain is at 3 out of 10. Patient is d ischarged home. Dragon Disclaimer Dragon Disclaimer This electronic medical record was generated, in whole or in part, using a voice recognition dictation system. NIHSS Stroke Scale NIH Stroke Scale: NIH Stroke Scale Response (Comments) Value Level of Consciousness: 0 Alert/Responsive 0 LOC Questions: 0 Answers both correctly 0 LOC Commands: 0 Performs both tasks 0 Best Gaze: 0 Normal 0 Visual: 0 No visual loss 0 Facial Palsy: 0 Normal, symmetrical 0 Motor - Left Arm 0 No drift 0 Motor - Right Arm 0 No drift 0 Motor - Left Leg 0 No drift 0 Motor: Right Leg 0 No drift 0 Limb Ataxia: 0 Absent 0 Sensory: 0 No loss 0 Best Language: 0 Normal 0 Dysathria: 0 Normal 0 Extinction and Inattention: 0 Normal 0 Total 0 Departure Departure Impression: Primary Impression: Migraine Additional Impression: Hypertension Disposition: 01 HOME, SELF-CARE Condition: STABLE Referrals: VIANCA ALVES MD (PCP) Patient Instructions: Migraine Headache Additional Instructions: Follow up with primary care physician. Take all of your medications as prescribed. Drink plenty of fluids. Scripts Ondansetron (ONDANSETRON ODT) 4 Mg Tab.rapdis 1 TAB PO PRN Q6-8HRS, #20 TAB Prov: IRASEMA GARCIA TAX MANAGER PUBLIC 11/26/19 Hydrocodone/Apap 5-325 (NORCO 5-325 TABLET) 1 Each Tablet 1 TAB PO PRN Q6HRS PRN for PAIN, #8 TAB 0 Refills Prov: IRASEMA GARCIA APRN 11/26/19 Problem Qualifiers Primary Impression: Migraine Migraine type: unspecified Status migrainosus presence: without status migrainosus Intractability: not intractable Qualified Codes: G43.909 - Migraine, unspecified, not intractable, without status migrainosus Additional Impression: Hypertension Hypertension type: unspecified Qualified Codes: I10 - Essential (primary) hypertension IRASEMA GARCIA TAX MANAGER PUBLIC Nov 26, 2019 22:27
[2019-11-26 22:36] LABS: BASO # 0.1 x10^3/uL (0.0-0.2); BASO % 1 % (0-3); EOS # 0.1 x10^3/uL (0.0-0.7); EOS % 2 % (0-3); HEMATOCRIT 46.4 % (36.0-47.0); HEMOGLOBIN 15.7 g/dL (12.0-15.5); LYMPH # 2.9 x10^3/uL (1.0-4.8); LYMPH % 35 % (24-48); MEAN CORPUSCULAR HEMOGLOBIN 32 pg (25-35); MEAN CORPUSCULAR HGB CONC 34 g/dL (31-37); MEAN CORPUSCULAR VOLUME 96 fL (79-100); MONO # 0.7 x10^3/uL (0.0-1.1); MONO % 9 % (0-9); NEUT # 4.5 x10^3/uL (1.8-7.7); NEUT % 54 % (31-73); PLATELET COUNT 253 x10^3/uL (140-400); RED BLOOD COUNT 4.85 x10^6/uL (3.50-5.40); RED CELL DISTRIBUTION WIDTH 14.1 % (11.5-14.5); WHITE BLOOD COUNT 8.4 x10^3/uL (4.0-11.0)
[2019-11-26 22:44] LABS: CALCIUM 9.2 mg/dL (8.5-10.1); CREATININE 0.8 mg/dL (0.6-1.0); GFR 72.7; POTASSIUM 3.7 mmol/L (3.5-5.1)
--- NOTE | 2019-11-26 22:48 | RAD ---
EXAM: AP View of the chest DATE: 11/26/2019 10:21 PM INDICATION: HTN, VOMITING COMPARISON: 03/21/2019 FINDINGS/ IMPRESSION: The heart is not enlarged. Aortic calcifications are seen. Mediastinal and hilar contours are stable. Patchy opacities left lung base likely atelectasis. No pleural effusion or pneumothorax. Electronically signed by: Jose Costa MD (11/26/2019 10:45 PM) [id number]
[2019-11-26 22:50] LABS: ALBUMIN 3.9 g/dL (3.4-5.0); ALBUMIN/GLOBULIN RATIO 1.2 (1.0-1.7); TOTAL BILIRUBIN 0.2 mg/dL (0.2-1.0); TOTAL PROTEIN 7.1 g/dL (6.4-8.2)
[2019-11-26 22:55] VITALS: BP 160/74
[2019-11-26] MEDS ORDERED: PROCHLORPERAZINE 10 MG/2 ML VIAL. IV ONE (23:00)
[2019-11-26] MEDS ORDERED: IV NORMAL SALINE 1000ML BAG 1,000 ML IV ONE (23:00)
[2019-11-26] MEDS ORDERED: diphenhydrAMINE 50 MG/ML VIAL IVP ONE (23:00)
[2019-11-26] MEDS ORDERED: fentaNYL PF VIAL 100 MCG/2 ML VIAL IVP ONE (23:00)
--- NOTE | 2019-11-26 23:00 | RAD ---
Exam: CT head INDICATION: Hypertension with headache TECHNIQUE: Sequential axial images through the head were obtained without the administration of IV contrast. Comparisons: None FINDINGS: No focal parenchymal lesion or hemorrhage is identified. There is no midline shift or sulcal effacement. No acute vascular territory infarction is identified. Olivares-white distinction is preserved. The ventricular system is within normal limits without compression hydrocephalus. The basal cisterns are well maintained. The visualized portions of the paranasal sinuses and mastoid air cells are well-pneumatized. No acute fractures. IMPRESSION: No acute intracranial abnormality. Exposure: One or more of the following in the visualized dose reduction techniques were utilized for this examination: 1. Automated exposure control 2. Adjustment of the MA and/or KV according to patient size Use of iterative of reconstructive technique Electronically signed by: Hoang Krishnan MD (11/26/2019 10:56 PM) [id number]
[2019-11-26] MEDS ORDERED: ONDA4TAB12 PO (23:14)
[2019-11-26] MEDS ORDERED: HYDR-3164 PO (23:14)
--- NOTE | 2019-11-27 05:16 | EKG ---
[facility] [address] [place] [address] Test Date: 2019-11-26 Test Time: 22:45:32 Pat Name: TRIP ROCHA Department: Room: Gender: F Hide Buffer: : 1955 Requested By: IRASEMA GARCIA Order Number: [id number] Reading MD: Measurements Intervals [place] Rate: 68 P: NC: QRS: 27 QRSD: 96 T: 109 QT: 424 QTc: 455 Interpretive Statements ATRIAL FIBRILLATION T ABNORMALITY IN HIGH LATERAL LEADS ABNORMAL ECG No previous ECG available for comparison
== END 2019-11-26 23:40 | disposition home or self-care (01) ==
LOC: ER 22:00
DX: G43.909 Migraine, unspecified, not intractable, without status migrainosus (principal); I10 Essential (primary) hypertension; E78.00 Pure hypercholesterolemia, unspecified; F41.9 Anxiety disorder, unspecified; I25.2 Old myocardial infarction; Z95.5 Presence of coronary angioplasty implant and graft
CPT/HCPCS: 36415; 70450; 71045; 80053; 84484; 85025; 93005; 96361; 96374; 96375; 99285; J0780; J1200; J3010; J7030

== ENCOUNTER → 2020-03-04 | Outpatient (CLI) | payer OTHER ==
[~2020-03-04] MED LIST changes: +ONDA4TAB12 PO
--- NOTE | 2020-03-04 10:26 | RAD ---
EXAM: CT right hip without IV contrast INDICATION: Right hip pain after arthroplasty TECHNIQUE: CT of the right hip was performed at 3 mm slice thickness and reviewed in multiplanar reformats without IV contrast. All CT scans performed at this facility utilize dose optimization techniques as appropriate to the exam, including the following: Automated exposure control and adjustment of the mA and/or KV according to patient size (this includes techniques or standardized protocols for targeted exams where dose is indication/reason for exam). IV CONTRAST: Not administered COMPARISON: Pelvis and right hip x-rays of 10/31/2019 FINDINGS: Needle Punch Machine Operator image shows similar-appearing left total hip arthroplasty. Interval right total hip arthroplasty with good alignment of the femoral and acetabular prostheses. No evidence of a fracture or aggressive appearing osseous lesion. No fluid collection or unexpected lucency in the osseous structures. The imaged right thigh and hip muscles and soft tissues reveal a healed surgical scar overlying the right tensor fasciae latae. The included pelvis shows surgical changes from previous right-sided pelvic surgery. Uterus is not visualized and may be surgically absent. The appendix appears normal IMPRESSION: Unremarkable CT of the right hip status post total arthroplasty with incidental surgical changes suggesting a prior hysterectomy. Electronically signed by: Candi Sanots MD (03/04/2020 10:23 AM) [id number]
== END | disposition home or self-care (01) ==
LOC: CT 09:36
PROVIDERS: ATTEND Orthopaedic Surgery
DX: M25.551 Pain in right hip (principal); Z96.641 Presence of right artificial hip joint
CPT/HCPCS: 73700

== ENCOUNTER → 2020-04-03 | Outpatient (CLI) | payer OTHER ==
--- NOTE | 2020-04-03 15:20 | KCIC ---
MR of the right knee HISTORY: Right knee pain since December. Pain is medial. TECHNIQUE: Routine multiplanar sequences are obtained. FINDINGS: No evidence of medial or lateral meniscal tear. Anterior and posterior cruciate ligaments are intact. Medial collateral ligament is intact. Iliotibial band unremarkable. Fibular collateral ligament, biceps femoris tendon and popliteus tendon are intact. Extensor mechanism is intact. Small joint effusion. No significant Diane's cyst. Severe thinning of the medial upper patellar cartilage. Focal chondral thinning at the posterior lateral tibial plateau. No acute fracture. No aggressive bone destruction. No significant Diane's cyst. No abnormal soft tissue edema or fluid collection. IMPRESSION: 1. No evidence of meniscal tear or internal derangement. 2. Areas of chondromalacia, greatest at the medial patella. Electronically signed by: Hermilo Chapman MD (04/03/2020 3:17 PM) [id number]
== END ==
LOC: KCIC MRI 13:36
PROVIDERS: ATTEND Orthopaedic Surgery
DX: M22.41 Chondromalacia patellae, right knee (principal); M25.461 Effusion, right knee
CPT/HCPCS: 73721

== ENCOUNTER → 2020-04-28 | Outpatient (CLI) | payer OTHER ==
--- NOTE | 2020-04-28 11:23 | CARD ---
MR#: [id number] Date of Study: 04/28/2020 Ordering Physician: AMAYA ADAIR, Referring Physician: AMAYA ADAIR, Tech: Yelena Kohli APPROVED REPORT EXAM: Two-dimensional and M-mode echocardiogram with Doppler and color Doppler. Other Information Quality : AverageHR: 73bpm Technically limited study due to COPD INDICATION Cardiac Disease: CAD RISK FACTORS Hypertension Hyperlipidemia Smoking 2D DIMENSIONS Left Atrium(2D)3.6 (1.6-4.0cm)IVSd1.2 (0.7-1.1cm) Aortic Root(2D)3.0 (2.0-3.7cm)LVDd5.4 (3.9-5.9cm) LVOT Diameter1.9 (1.8-2.4cm)PWd1.0 (0.7-1.1cm) LVDs3.4 (2.5-4.0cm)FS (%) 36.2 % SV92.6 mlLVEF(%)65.4 (>50%) Aortic Valve AoV Peak Abdirahman.119.3cm/sAoV VTI24.6cm AO Peak GR.5.7mmHgLVOT Peak Abdirahman.94.3cm/s LVOT VTI 19.93cmAO Mean GR.3mmHg ESTUARDO (VMAX)1.84hc6XIJ (VTI)2.36cm2 Mitral Valve MV E Kuymlbkm59.8cm/sMV DECEL MMMC060wk MV A Lqmecton64.3cm/sMV E Mean Gr.2mmHg MV GUZ97oyV/A Ratio1.0 MVA (PHT)3.66cm2 TDI E/Lateral E'10.1E/Medial E'10.5 Pulmonary Valve PV Peak Zsoxlbox90.2cm/sPV Peak Grad.3mmHg Tricuspid Valve TR P. Kuzojmjd071vf/sRAP LJRKQWOC4fdHa TR Peak Gr.96mxMwFRCH72dpAf Pulmonary Vein S1 Upqzeoac41.4cm/sD2 Cbsxnnex94.5cm/s PVa siqhxiix696povu LEFT VENTRICLE The left ventricle is normal size. There is borderline to mild concentric left ventricular hypertroph y. The systolic function is mildly to moderately impaired. EF 40-45% The distal 1/3rd of the LV is ak inetic. Otherwise, mild global hypokinesis. Transmitral Doppler flow pattern is Grade I-abnormal rela xation pattern. RIGHT VENTRICLE The right ventricle is normal size. There is normal right ventricular wall thickness. The right ventr icular systolic function is normal. ATRIA The left atrium size is normal. The right atrium size is normal. The interatrial septum is intact wit h no evidence for an atrial septal defect or patent foramen ovale as noted on 2-D or Doppler imaging. AORTIC VALVE The aortic valve is normal in structure and function. Doppler and Color Flow revealed no significant aortic regurgitation. There is no significant aortic valvular stenosis. Calculated aortic valve area is 2.35 cm2 with maximum pressure gradient of 6 mmHg and mean pressure gradient of 4 mmHg. MITRAL VALVE The mitral valve is normal in structure and function. There is no evidence of mitral valve prolapse. There is no mitral valve stenosis. Doppler and Color-flow revealed trace mitral regurgitation. TRICUSPID VALVE The tricuspid valve is not well visualized. Doppler and Color Flow revealed no tricuspid valve regurg itation noted with an estimated PAP of 21 mmHg. There is no tricuspid valve stenosis. PULMONIC VALVE The pulmonic valve is not well visualized. Doppler and Color Flow revealed no pulmonic valvular regur gitation. There is no pulmonic valvular stenosis. GREAT VESSELS The aortic root is normal in size. The IVC is normal in size and collapses >50% with inspiration. PERICARDIAL EFFUSION There is no evidence of significant pericardial effusion. Critical Notification Critical Value: No <Conclusion> The systolic function is mildly to moderately impaired. EF 40-45% The distal 1/3rd of the LV is akinetic. Otherwise, mild global hypokinesis. Signed by : Alessandro Granda, Electronically Approved : 04/28/2020 11:23:04
--- NOTE | 2020-04-28 13:30 | RAD ---
Exam : Carotid Duplex with Grayscale Ultrasound and Spectral and Color Doppler Analysis 04/28/2020 1:23 PM Clinical Indications: Reason: CAROTID STENOSIS / Spl. Instructions: CARDIOLOGY TO READ / History: Comparison study: Carotid Doppler ultrasound October 19, 2016. PQRS Compliance Statement - Stenosis calculations for CT, MR and conventional angiography are based upon measurement of the distal ICA diameter in accordance with the NASCET methodology. Stenosis calculations for carotid ultrasound studies are derived from validated velocity criteria which are known to correlate with the NASCET methodology. Findings: The common, internal and external carotid arteries were examined by grayscale, color and spectral Doppler ultrasound. There is mild to moderate plaque at the left carotid bulb. Mild visual narrowing appears to be present on grayscale imaging and color Doppler imaging. Only minimal changes of atherosclerotic vascular disease appear to be present on the right. The following are the velocities and ratios in the carotid arteries on both sides: RIGHT ICA PV: 102cm/sec RIGHT CCA PV: 99 cm/sec RIGHT ICA ED: 25cm/sec RIGHT IC/CCPV: Less than 2 RIGHT VERTEBRAL: antegrade flow LEFT ICA PV: 106cm/sec LEFT CCA PV: 108cm/sec LEFT ICA ED: 36cm/sec LEFT IC/CCPV: Less than 2 LEFT VERTEBRAL: antegrade flow <50% ICA Stenosis: PSV < 125cm/s (EDV < 40cm/s; SVR < 2.0) 50-69% ICA Stenosis: PSV < 125-229cm/s (EDV 40-99cm/s; SVR 2.0-3.9) >70% ICA Stenosis: PSV > 230cm/s (EDV >100cm/s; SVR >4.0) Impression: Mild to moderate atherosclerotic plaquing in the left carotid bulb, and to a lesser degree on the right, with less than 50% stenosis of the bilateral internal carotid arteries by ultrasound criterion Electronically signed by: Marco Antonio Phipps MD (04/28/2020 1:28 PM) [id number]
== END | disposition home or self-care (01) ==
LOC: ECHO 09:55
PROVIDERS: ATTEND Internal Medicine Cardiovascular Disease
DX: I65.23 Occlusion and stenosis of bilateral carotid arteries (principal); I25.10 Atherosclerotic heart disease of native coronary artery without angina pectoris; I51.7 Cardiomegaly
CPT/HCPCS: 93306; 93880

== ENCOUNTER → 2020-07-15 | Outpatient (CLI) | payer OTHER ==
[~2020-07-15] MED LIST changes: -ASPI-612 PO; +ASPI-886 PO
--- NOTE | 2020-07-15 15:28 | KCIC ---
EXAMINATION: SHOULDER 2+V LEFT CLINICAL HISTORY: Left shoulder pain, no known injury TECHNIQUE: SHOULDER 2+V LEFT Number of Images/Views: 3 COMPARISON: None FINDINGS: Glenohumeral joint alignment maintained with tiny marginal osteophyte at the inferior glenoid. Mild acromioclavicular degenerative changes. No acute fracture. Acromiohumeral interval maintained. Lobular calcification projected superolateral to the greater tuberosity compatible with rotator cuff calcific tendinosis. IMPRESSION: Mild degenerative changes as described. Rotator cuff calcific tendinosis. Electronically signed by: Jhonny Marley DO (07/15/2020 3:25 PM) [id number]
== END | disposition home or self-care (01) ==
LOC: KCIC 15:00
PROVIDERS: ATTEND Physician Assistant Medical
DX: M19.012 Primary osteoarthritis, left shoulder (principal); M75.102 Unspecified rotator cuff tear or rupture of left shoulder, not specified as traumatic
CPT/HCPCS: 73030

== ENCOUNTER → 2020-09-01 | Outpatient (CLI) | payer OTHER ==
--- NOTE | 2020-09-01 17:02 | KCIC ---
Bilateral diagnostic digital mammograms with 3-D tomosynthesis: Reason for examination: Follow-up nodules. Comparison is made to previous studies dated 01/09/2019 and 02/07/2017. Bilateral mammograms in CC and oblique projections were obtained with 2-D imaging and 3-D tomosynthesis imaging on a Siemens Inspiration unit and reviewed on the workstation. Interpretation was made with the benefit of CAD. The skin and nipples show no abnormalities. No abnormal axillary lymph nodes are seen. The breast parenchyma shows scattered fatty and fibroglandular density. (Breast density: Category B.) There continue to be small circumscribed nodular parenchymal densities anterior laterally in the right breast which are stable. There are no new dominant masses, suspicious calcifications or architectural distortion. A few calcifications are seen. Impression: Small circumscribed nodules in the lateral right breast without change. Ultrasound to follow. BI-RAD Category 0: Incomplete. Needs additional imaging evaluation. Right breast ultrasound: Ultrasound examination of the right breast and axilla was performed. At the 7:00 position 3 cm from the nipple, there continues to be a small hypoechoic circumscribed lesion in parallel orientation measuring 5.4 mm in greatest dimension. No other definite cystic or solid nodules are seen. No abnormal appearing lymph nodes are seen in the axilla. IMPRESSION: Continued presence of a small benign-appearing nodule at the 7:00 position of the right breast. No other focal lesion seen. Recommend routine mammographic follow-up. BI-RADS Category 2: Benign. "Our facility is accredited by the [employer] Mammography Program." This patient's information has been entered into a reminder system for the patient to be notified with the results of her examination and a target date for the next mammogram. Electronically signed by: Elle Keenan MD (09/01/2020 4:59 PM) [id number]
== END ==
LOC: KCIC MAMMO 12:37
PROVIDERS: ATTEND Family Medicine
DX: R92.2 Inconclusive mammogram (principal); N63.13 Unspecified lump in the right breast, lower outer quadrant
CPT/HCPCS: 76641; 77066; G0279; 77062

== ENCOUNTER → 2020-11-24 | Outpatient (CLI) | payer OTHER ==
[~2020-11-24] MED LIST changes: -LISI-338 PO; +LISI-517 PO; +REGADENOSON 0.4 MG/5 ML DISP.SYRIN. IV ONE
--- NOTE | 2020-11-24 16:24 | RAD ---
MR#: [id number] Date of Study: 11/24/2020 Ordering Physician: AMAYA ADAIR, Referring Physician: PHILIPPE ROSA Tech: COURTNEY eLslie, ALLISON (R) (N) APPROVED REPORT Test Type: Pharmacological Stress Nurse/Tech: Bri Ferguson RN Test Indications: CAD Cardiac History: CAD, PTCA, HTN, See EMR. Medications: Plavix, ASA, See EMR. Medical History: COPD, Smoker, See EMR. Resting ECG: SR Resting Heart Rate: 66 bpm Resting Blood Pressure: 138/66mmHg Pretest Chest Pain: No chest pain Nurse/Tech Notes Lungs diminished throughout, Heart tones regular. Consent: The procedure was explained to the patient in lay terms. Informed consent was witnessed. Gigi eout was entered into [employer]. History and Stress Test performed by RT Yuli (Adalgisa) (N) Pharm. Details Pharmacologic stress testing was performed using 0.4mg per 5ml of regadenoson given intravenously ove r 7-10 seconds. Stress Symptoms Nausea POST EXERCISE Reason for Termination: Infusion complete Max HR: 103 bpm Max Blood Pressure: 146/56mmHg Blood Pressure response to exercise: Normal blood pressure response during stress. Heart Rate response to exercise: WNL Chest Pain: No. Arrhythmia: No. ST Change: No. INTERPRETATION Stress EKG Conclusion: No evidence of stress induced EKG changes. Imaging Protocol IMAGE PROTOCOL: Rest Tc-99m/stress Tc-99m 1 day Rest: Stress: Viability: Radiopharm.Tc99m JuyctmmjqNv45a Sestamibi Elku68zGv 31mCi Img Date 11/24/2020 11/24/2020 Inj-Img Ehtj41chu. 60min. Rest Admin Site:IV - Left AntecubitalAdministrator:COURTNEY Leslie, ALLISON (R)(N) Stress Admin Site: IV - Left AntecubitalAdministrator: RT Annamaria Roldan)(N) STRESS DATA End Diast. Vol.139.0mlAv. Heart Rate71.0bpm End Syst. Vol.72.0mlCO Index BSA0.0L/min Myocardial Mgfy612.0gEject. Nukseezb23.0% Stress Rates Pk. Fill Rate2.70EDV/secLVtime Pk. Fill 120.92msec Pk. Empty Rate3.02ESV/secLVtime Pk. Wgstm308.30msec 1/3 Pk. Fill1.75EDV/sec Stress Scores Regional WT1.00Summed WT23.00 Regional WM0.00Summed WM12.00 LV Perfusion Moderate to large sized mid to distal septal and anterior wall FIXED defect suggestive of prior infar ct without active ischemia. Wall Motion Mild LV dysfunction. EF 45% with anterior wall hypokinesis. LV Perf. Quant 17 Seg. SSS24.00 17 Seg. SRS20.00 17 Seg. SDS4.00 Stress Defect Extent (% LAD)66.90Rest Defect Extent (% LAD)59.40Rev. Defect Extent (% LAD)11.90 Stress Defect Extent (% LCX) 25.00Rest Defect Extent (% LCX)17.50Rev. Defect Extent (% LCX)1.30 Stress Defect Extent (% RCA)13.30Rest Defect Extent (% RCA)12.20Rev. Defect Extent (% RCA)1.10 Stress Defect Extent (% ELOISA)45.70Rest Defect Extent (% ELOISA)40.20Rev. Defect Extent (% ELOISA)9.30 Other Information Quality:Average Risk Assessment: Moderate Risk Conclusion 1. No evidence of stress induced EKG changes. 2. Large FIXED LAD territory defect consistent with prior infarct without ischemia. 3. Mild LV dysfunction. EF 45% 4. Moderate risk for future CV events. Signed by : Alessandro Granda, Electronically Approved : 11/24/2020 16:23:41
== END ==
LOC: NM 09:32
PROVIDERS: ATTEND Internal Medicine Cardiovascular Disease
DX: I10 Essential (primary) hypertension (principal); I25.10 Atherosclerotic heart disease of native coronary artery without angina pectoris
CPT/HCPCS: 78452; 93017; A9500; J2785

== ENCOUNTER → 2021-05-27 | Outpatient (CLI) | payer OTHER ==
[~2021-05-27] MED LIST changes: -REGADENOSON 0.4 MG/5 ML DISP.SYRIN. IV ONE
--- NOTE | 2021-05-27 18:36 | CARD ---
MR#: [id number] Date of Study: 05/27/2021 Ordering Physician: AMAYA ADAIR, Referring Physician: Renu ROSA: Gianni Martin [facility] APPROVED REPORT EXAM: Two-dimensional and M-mode echocardiogram with Doppler and color Doppler. Other Information Quality : AverageAverageHR: 63bpm Rhythm : NSR INDICATION Cardiac Disease: CAD RISK FACTORS Hypertension Hyperlipidemia Smoking 2D DIMENSIONS Left Atrium(2D)4.3 (1.6-4.0cm)IVSd1.0 (0.7-1.1cm) Aortic Root(2D)2.9 (2.0-3.7cm)LVDd5.5 (3.9-5.9cm) LVOT Diameter2.1 (1.8-2.4cm)PWd1.0 (0.7-1.1cm) LVDs3.8 (2.5-4.0cm)FS (%) 30.4 % SV82.7 ml Aortic Valve AoV Peak Abdirahman.95.6cm/sAoV VTI23.9cm AO Peak GR.3.7mmHgLVOT Peak Abdirahman.64.1cm/s AO Mean GR.2mmHgAVA (VMAX)2.25cm2 Mitral Valve MV E Cawjjkdx87.5cm/sMV E Peak Gr.2mmHg MV DECEL KVQV681jnPH A Jyqlhspu98.7cm/s MV E Mean Gr.1mmHgE/A Ratio1.3 Pulmonary Valve PV Peak Rqkpfsbf51.6cm/s Tricuspid Valve TR P. Ilnuxyys823oc/sTR Peak Gr.12mmHg Pulmonary Vein S1 Wrdlsjqs80.1cm/sD2 Vhruprcz81.2cm/s LEFT VENTRICLE The left ventricle is normal size. There is normal left ventricular wall thickness. The systolic func tion is mildly impaired. Her ejection fraction is estimated at 40%. There is apical hypokinesis pres ent. Tissue Doppler imaging reveals abnormal left ventricular diastolic dysfunction. No left ventricl e thrombus noted on this study. There is no ventricular septal defect visualized. There is no left ve ntricular aneurysm. There is no mass noted in the left ventricle. RIGHT VENTRICLE The right ventricle is normal size. There is normal right ventricular wall thickness. The right ventr icular systolic function is normal. ATRIA The left atrium size is normal. The right atrium size is normal. AORTIC VALVE The aortic valve is normal in structure and function. Doppler and Color Flow revealed no significant aortic regurgitation. There is no significant aortic valvular stenosis. There is no aortic valvular v egetation. MITRAL VALVE The mitral valve is normal in structure and function. There is no evidence of mitral valve prolapse. There is no mitral valve stenosis. Doppler and Color-flow revealed mild mitral regurgitation. TRICUSPID VALVE The tricuspid valve is normal in structure and function. Doppler and Color Flow revealed trace tricus pid regurgitation. There is no tricuspid valve prolapse or vegetation. There is no tricuspid valve st enosis. PULMONIC VALVE The pulmonary valve is normal in structure and function. Doppler and Color Flow revealed no pulmonic valvular regurgitation. There is no pulmonic valvular stenosis. GREAT VESSELS The aortic root is normal in size. The ascending aorta is normal in size. The pulmonary artery is nor mal. The IVC is normal in size and collapses >50% with inspiration. PERICARDIAL EFFUSION There is no pleural effusion. Non hemodynamically significant small pericardial effusion Critical Notification Critical Value: No <Conclusion> The left ventricle is normal size. The systolic function is mildly impaired. Her ejection fraction is estimated at 40%. There is apical hypokinesis present. Doppler and Color Flow revealed no significant aortic regurgitation. There is no significant aortic valvular stenosis. Doppler and Color-flow revealed mild mitral regurgitation. Doppler and Color Flow revealed trace tricuspid regurgitation. Signed by : Michael Steele MD Electronically Approved : 05/27/2021 18:36:20
== END ==
LOC: ECHO 09:43
PROVIDERS: ATTEND Internal Medicine Cardiovascular Disease
DX: I34.0 Nonrheumatic mitral (valve) insufficiency (principal); I25.10 Atherosclerotic heart disease of native coronary artery without angina pectoris; I65.29 Occlusion and stenosis of unspecified carotid artery; I10 Essential (primary) hypertension; E78.5 Hyperlipidemia, unspecified
CPT/HCPCS: 93306; 93880

== ENCOUNTER → 2021-06-22 | Outpatient (CLI) | payer OTHER ==
--- NOTE | 2021-06-23 08:32 | KCIC ---
EXAM: Bilateral hand and wrist DATE: 06/22/2021 8:55 AM INDICATIONS: Reason: Ganglion cyst dorsum Lt wrist, stenosing tenosynovitis of finger Lt hand. / Spl. Instructions: / History: COMPARISON: No prior FINDINGS: PA, oblique and lateral views of the hand and wrist bilaterally show normal symmetric bone density. Mild scattered bilateral IP joint space narrowing with associated osteophytes particularly a t the index DIP joints bilaterally. Thumb CMC narrowing with small osteophytes. Negative erosive type changes. Negative periarticular soft tissue calcifications or chondrocalcinosis. Negative focal soft tissue swelling. IMPRESSION: No radiographic findings of inflammatory or erosive arthropathy. 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 Electronically signed by: Jose Costa MD (06/23/2021 8:30 AM) [id number]
== END ==
LOC: KCIC 08:48
PROVIDERS: ATTEND Plastic Surgery
DX: M19.042 Primary osteoarthritis, left hand (principal); M19.041 Primary osteoarthritis, right hand; M25.742 Osteophyte, left hand; M25.741 Osteophyte, right hand; M25.842 Other specified joint disorders, left hand; M25.841 Other specified joint disorders, right hand; M67.432 Ganglion, left wrist; M65.842 Other synovitis and tenosynovitis, left hand
CPT/HCPCS: 73130-50

== ENCOUNTER 2021-10-21 00:22 | Inpatient (IN) | payer OTHER ==
[~2021-10-21] VITALS: Ht 167.6 cm; Wt 77.3 kg
[~2021-10-21 00:22] MED LIST changes: -LISI-517 PO; +LISI5TAB15 PO
[2021-10-21 00:45] LABS: BASO # 0.1 x10^3/uL (0.0-0.2); BASO % 1 % (0-3); EOS # 0.1 x10^3/uL (0.0-0.7); EOS % 1 % (0-3); HEMATOCRIT 46.1 % (36.0-47.0); HEMOGLOBIN 15.5 g/dL (12.0-15.5); LYMPH # 2.8 x10^3/uL (1.0-4.8); LYMPH % 27 % (24-48); MEAN CORPUSCULAR HEMOGLOBIN 33 pg (25-35); MEAN CORPUSCULAR HGB CONC 34 g/dL (31-37); MEAN CORPUSCULAR VOLUME 97 fL (79-100); MONO # 0.9 x10^3/uL (0.0-1.1); MONO % 9 % (0-9); NEUT # 6.5 x10^3/uL (1.8-7.7); NEUT % 62 % (31-73); PLATELET COUNT 259 x10^3/uL (140-400); RED BLOOD COUNT 4.75 x10^6/uL (3.50-5.40); RED CELL DISTRIBUTION WIDTH 13.9 % (11.5-14.5); WHITE BLOOD COUNT 10.5 x10^3/uL (4.0-11.0)
[2021-10-21] MEDS ORDERED: MORPHINE SULFATE 4 MG/ML INJ. IV PRN (00:45)
[2021-10-21 00:59] LABS: CALCIUM 8.9 mg/dL (8.5-10.1); CREATININE 0.7 mg/dL (0.6-1.0); GFR 84.2; POTASSIUM 4.4 mmol/L (3.5-5.1)
[2021-10-21] MEDS ORDERED: NITROGLYCERIN PREMIX 250 ML IV ONE (01:00)
[2021-10-21 01:05] LABS: ALBUMIN 3.5 g/dL (3.4-5.0); ALBUMIN/GLOBULIN RATIO 0.8 (1.0-1.7); MAGNESIUM 2.4 mg/dL (1.8-2.4); TOTAL BILIRUBIN 0.3 mg/dL (0.2-1.0); TOTAL PROTEIN 7.7 g/dL (6.4-8.2)
--- NOTE | 2021-10-21 01:20 | PHYS DOC ---
Past Medical History Past Medical History: Anxiety, High Cholesterol, Hypertension, MD, Migraines, Other Additional Past Medical Histor: ulcer, stemi Past Surgical History: Hip Replacement, Hysterectomy, Other Additional Past Surgical Histo: right ankle, jaw, cardiac stent X3 Smoking Status: Current Every Day Smoker Alcohol Use: None Drug Use: None General Adult EDM: Chief Complaint: CHEST PAIN HPI: HPI: Patient is a 66 year old male past medical history hypertension hyperlipidemia coronary artery disease presents with a chief complaint of left chest shoulder discomfort. Patient states pain woke her up from her sleep approximately 2300 hrs. Patient states she had some shortness of breath and some nausea. Patient states pain is constant since awaking. Patient states current pain is presenting very similar to previous MIs. Review of Systems: Review of Systems: Review of systems: Constitutional symptoms- No fever, no chills. Eyes- No Discharge, No Visual Loss Respiratory symptoms- Positive shortness of breath, No wheezing, No Dyspnea on Exertion Cardiovascular Systems; Positive chest pain, No Palpitations, No syncope Gastrointestinal symptoms: NO abdominal pain, no nausea, no vomiting or diarrhea. Genitourinary symptoms: No dysuria. Musculoskeletal symptoms: No back pain No extremity pain. NEUROLOGICAL Symptoms: No headache, no generalized weakness; No focal Weakness Skin: No rash. Heart Score: C/O Chest Pain: Yes HEART Score for Chest Pain: HEART Score for Chest Pain Response (Comments) Value History Moderately Suspicious 1 ECG Nonspecific Repolarizatio 1 Age >45 - < 65 1 Risk Factors >3 Risk Factors or Hx CAD 2 Troponin < Normal Limit 0 Total 5 Risk Factors: Risk Factors: DM, Current or recent (<one month) smoker, HTN, HLP, family history of CAD, obesity. Risk Scores: Score 0 - 3: 2.5% MACE over next 6 weeks - Discharge Home Score 4 - 6: 20.3% MACE over next 6 weeks - Admit for Clinical Observation Score 7 - 10: 72.7% MACE over next 6 weeks - Early Invasive Strategies Current Medications: Current Medications Medications (Trade) Dose Ordered Sig/Luci Start Time Stop Time Status Last Admin Dose Admin Morphine Sulfate (Morphine Sulfate) 4 mg PRN Q2HR PRN 10/21/21 01:15 10/22/21 01:14 UNV Nitroglycerin/ Dextrose 250 ml @ 1.5 mls/hr 1X ONCE 10/21/21 01:00 10/27/21 23:39 10/21/21 00:55 1.5 MLS/HR Ondansetron HCl (Zofran) 4 mg PRN Q8HRS PRN 10/21/21 01:15 10/22/21 01:14 Allergies: Allergies: Allergies Coded Allergies Type Severity Reaction Last Updated Verified naproxen Adverse Reaction Mild Nausea and Vomiting 08/02/19 Yes Physical Exam: PE: Constitutional: Well developed, well nourished, no acute distress, non-toxic appearance. [] HENT: Normocephalic, atraumatic, bilateral external ears normal, oropharynx moist, no oral exudates, nose normal. [] Eyes: PERRLA, EOMI, conjunctiva normal, no discharge. [] Neck: Normal range of motion, no tenderness, supple, no stridor. [] Cardiovascular:Heart rate regular rhythm, no murmur [] Lungs & Thorax: Bilateral breath sounds clear to auscultation [] Abdomen: Bowel sounds normal, soft, no tenderness, no masses, no pulsatile masses. [] Skin: Warm, dry, no erythema, no rash. [] Back: No tenderness, no CVA tenderness. [] Extremities: No tenderness, no cyanosis, no clubbing, ROM intact, no edema. [] Neurologic: Alert and oriented X 3, normal motor function, normal sensory function, no focal deficits noted. [] Psychologic: Affect normal, judgement normal, mood normal. [] Current Patient Data: Labs: Laboratory Tests Test 10/21/21 00:30 10/21/21 00:32 SARS-CoV-2 Antigen (Rapid) Negative (NEGATIVE) White Blood Count 10.5 x10^3/uL (4.0-11.0) Red Blood Count 4.75 x10^6/uL (3.50-5.40) Hemoglobin 15.5 g/dL (12.0-15.5) Hematocrit 46.1 % (36.0-47.0) Mean Corpuscular Volume 97 fL (79-100) Mean Corpuscular Hemoglobin 33 pg (25-35) Mean Corpuscular Hemoglobin Concent 34 g/dL (31-37) Red Cell Distribution Width 13.9 % (11.5-14.5) Platelet Count 259 x10^3/uL (140-400) Neutrophils (%) (Auto) 62 % (31-73) Lymphocytes (%) (Auto) 27 % (24-48) Monocytes (%) (Auto) 9 % (0-9) Eosinophils (%) (Auto) 1 % (0-3) Basophils (%) (Auto) 1 % (0-3) Neutrophils # (Auto) 6.5 x10^3/uL (1.8-7.7) Lymphocytes # (Auto) 2.8 x10^3/uL (1.0-4.8) Monocytes # (Auto) 0.9 x10^3/uL (0.0-1.1) Eosinophils # (Auto) 0.1 x10^3/uL (0.0-0.7) Basophils # (Auto) 0.1 x10^3/uL (0.0-0.2) Sodium Level 139 mmol/L (136-145) Potassium Level 4.4 mmol/L (3.5-5.1) Chloride Level 102 mmol/L (98-107) Carbon Dioxide Level 29 mmol/L (21-32) Anion Gap 8 (6-14) Blood Urea Nitrogen 17 mg/dL (7-20) Creatinine 0.7 mg/dL (0.6-1.0) Estimated GFR (Cockcroft-Gault) 84.2 BUN/Creatinine Ratio 24 (6-20) H Glucose Level 112 mg/dL (70-99) H Calcium Level 8.9 mg/dL (8.5-10.1) Magnesium Level 2.4 mg/dL (1.8-2.4) Total Bilirubin 0.3 mg/dL (0.2-1.0) Aspartate Amino Transferase (AST) 21 U/L (15-37) Alanine Aminotransferase (ALT) 32 U/L (14-59) Alkaline Phosphatase 55 U/L (46-116) Troponin I High Sensitivity 22 ng/L (4-50) Total Protein 7.7 g/dL (6.4-8.2) Albumin 3.5 g/dL (3.4-5.0) Albumin/Globulin Ratio 0.8 (1.0-1.7) L Laboratory Tests 10/21/21 00:32 Laboratory Tests 10/21/21 00:32 Vital Signs: Vital Signs Date Time Temp Pulse Resp B/P (MAP) Pulse Ox O2 Delivery O2 Flow Rate FiO2 10/21/21 00:38 Room Air 10/21/21 00:22 98.6 73 15 165/79 (107) 100 98.6 EKG: EKG: [] Performed at 0026 Rate 80 Normal sinus rhythm No ST elevation No ST depression No acute MD Radiology/Procedures: Radiology/Procedures: [] Course & Med Decision Making: Course & Med Decision Making Pertinent Labs and Imaging studies reviewed. (See chart for details) [] Patient was evaluated for chief complaint. Work-up consisted of laboratory analysis. Results reviewed and discussed with patient. EMS treated patient with aspirin prior to arrival. She also received nitroglycerin. Patient's pain treated with nitro morphine with mild improvement. Patient was then treated with Dilaudid with complete resolution of discomfort. Patient admitted to the hospitalist with cardiology consult. Irison Disclaimer: Dudley Disclaimer: This electronic medical record was generated, in whole or in part, using a voice recognition dictation system. Departure Departure Impression: Primary Impression: Chest pain Disposition: ADMITTED INPATIENT Condition: STABLE Referrals: VIANCA ALVES MD (PCP) GIOVANNI NORTON DO Oct 21, 2021 01:20
--- NOTE | 2021-10-21 01:50 | EKG ---
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
[2021-10-21] MEDS: MORPHINE SULFATE 4 MG/ML INJ. IVP PRN ×2 (01:55→08:26)
--- NOTE | 2021-10-21 01:57 | RAD ---
AP chest x-ray HISTORY: Chest pain FINDINGS: Heart size normal. Aortic arch calcified plaque. No pneumothorax, pulmonary opacities or pl eural effusions. The bones are unremarkable. IMPRESSION: No acute process. Electronically signed by: Jori Shah MD (10/21/2021 1:54 AM) [facility]
[2021-10-21] MEDS ORDERED: HYDROmorphone 2 MG/ML INJ. IVP ONE (02:30)
[2021-10-21] MEDS ORDERED: CONTRAST GIVEN. MC PRN (02:45)
[2021-10-21] MEDS ORDERED: IOHEXOL 350 MG/ML 100 ML VIAL. IV ONE (03:00)
--- NOTE | 2021-10-21 03:24 | RAD ---
CT angiography chest with contrast PQRS statement: CT scans at this facility use dose reduction including either automated exposure cont rol, iterative reconstructions, and /or weight based radiation dosing via mA and kV modification when appropriate to reduce radiation dose to as low as reasonably achievable. HISTORY: Chest pain. Back pain. Contrast: 100 mL Omnipaque 350 intravenous contrast and 3-D MIP reconstructions of the arteries of th e heart. FINDINGS: Extensive coronary calcified plaque. Moderate calcified plaque thoracic aorta. No aneurysm or dissection of the thoracic aorta. Ascending thoracic aorta diameter is 3.1 cm which is normal. Sma ll liver cysts. 3 cm left renal cyst as well as smaller hypodensities present within the sinus cannot be fully evaluated as a stenosis of the lateral view. Heart size normal. Esophagus is normal. No liliya nopathy in the chest. There is thinning of the left ventricle apical myocardium which may be due to a chronic infarct. No pulmonary artery emboli. No adenopathy. No mediastinal hematoma. Thoracic disc d isease with disc height loss shallow anterior disc osteophytes. Pulmonary emphysema. Trachea and bron chi are unremarkable. No pulmonary opacities. No pleural effusions. IMPRESSION: 1. No acute process. No pulmonary artery emboli. No thoracic aortic aneurysm or dissection. 2. Extensive coronary calcified plaque. There is moderate calcified plaque of the thoracic aorta. 3. Pulmonary emphysema. Electronically signed by: Jori Shah MD (10/21/2021 3:21 AM) [facility]
[2021-10-21] MEDS: ONDANSETRON PF 4 MG/2 ML VIAL. IVP PRN ×2 (05:57→08:25)
--- NOTE | 2021-10-21 08:31 | PDOC1 ---
History and Physical Date of Service: DOS: DATE: 10/21/21 TIME: 08:23 Chief Complaint: Chief Complain: Chest pain History of Present Illness: HPI: History obtained from discussion with the ED physician and chart review 66 year old male past medical history hypertension hyperlipidemia coronary artery disease presents with a chief complaint of left chest shoulder discomfort. Patient states pain woke her up from her sleep approximately 2300 hrs. Patient states she had some shortness of breath and some nausea. Patient states pain is constant since awaking. Patient states current pain is presenting very similar to previous MIs. EKG reviewedNSR at rate of [address] elevation or depressions Past Medical/Surgical History: PMH/PSH: Past Medical History: Anxiety, High Cholesterol, Hypertension, [place], Migraines, ulcer, stemi Past Surgical History: Hip Replacement, Hysterectomy, right ankle ORIF, jaw surgery, cardiac stent X3, right CEA Allergies: Allergies: Coded Allergies: naproxen (Verified Adverse Reaction, Mild, Nausea and Vomiting, 08/02/19) Family History: Family History: Reviewed, significant for cardiovascular disease in the father Social History: Social History: Smoking Status: Current Every Day Smoker for 40 years Alcohol Use: None Drug Use: None Current Medications: Current Medications Current Medications Morphine Sulfate (Morphine Sulfate) 4 mg PRN Q2HR PRN IV SEVERE PAIN 7-10 Last administered on 10/21/21at 00:38; Start 10/21/21 at 00:45; Stop 10/21/21 at 02:00; Status DC Nitroglycerin/ Dextrose 250 ml @ 1.5 mls/hr 1X ONCE IV Last administered on 10/21/21at 00:55; Start 10/21/21 at 01:00; Stop 10/27/21 at 23:39 Ondansetron HCl (Zofran) 4 mg PRN Q8HRS PRN IVP NAUSEA/VOMITING 1ST CHOICE Last administered on 10/21/21at 05:57; Start 10/21/21 at 01:15; Stop 10/22/21 at 01:14 Morphine Sulfate (Morphine Sulfate) 4 mg PRN Q2HR PRN IVP SEVERE PAIN 7-10 Last administered on 10/21/21at 01:55; Start 10/21/21 at 01:15; Stop 10/22/21 at 01:14 Hydromorphone HCl (Dilaudid) 1 mg 1X ONCE IVP Last administered on 10/21/21at 02:58; Start 10/21/21 at 02:30; Stop 10/21/21 at 02:31; Status DC Iohexol (Omnipaque 350 Mg/ml) 100 ml 1X ONCE IV Last administered on 10/21/21at 02:57; Start 10/21/21 at 03:00; Stop 10/21/21 at 03:01; Status DC Info (CONTRAST GIVEN -- Rx MONITORING) 1 each PRN DAILY PRN MC SEE COMMENTS; Start 10/21/21 at 02:45; Stop 10/23/21 at 02:44 Active Scripts Active Ondansetron Odt (Ondansetron) 4 Mg Tab.rapdis 1 Tab PO PRN Q6-8HRS Milton 5-325 Tablet (Acetaminophen/Hydrocodone Bitart) 1 Each Tablet 1 Tab PO PRN Q6HRS PRN Percocet 5-325 Mg Tablet (Oxycodone/Acetaminophen) 1 Each Tablet 1 Tab PO PRN Q6HRS PRN Effient (Prasugrel Hcl) 10 Mg Tablet 10 Mg PO DAILYWBKFT Lisinopril 5 Mg Tablet 5 Mg PO DAILY Carvedilol (Carvedilol) 3.125 Mg Tablet 3.125 Mg PO BIDWMEALS Reported Milton 5-325 Tablet (Acetaminophen/Hydrocodone Bitart) 1 Each Tablet 1-2 Tab PO Q6HRS Lipitor (Atorvastatin Calcium) 40 Mg Tablet 1 Tab PO DAILY Aspirin 81 Mg Tab.chew 1 Tab PO DAILY Xanax (Alprazolam) 0.5 Mg Tablet 1 Tab PO BID PRN ROS: Review of Systems Review of System REVIEW OF SYSTEMS: GENERAL: Denies weakness SKIN: No bruising, hair changes or rashes. EYES: No blurred, double or loss of vision. NOSE AND THROAT: No history of nosebleeds, hoarseness or sore throat. HEART: Positive for chest pain LUNGS: Denies cough, hemoptysis, wheezing or shortness of breath. GASTROINTESTINAL: Denies changes in appetite, nausea, vomiting, diarrhea or constipation. GENITOURINARY: No history of frequency, urgency, hesitancy or nocturia. NEUROLOGIC: Denies history of numbness, tingling, or tremor. PSYCHIATRIC: No history of panic, anxiety or depression. ENDOCRINE: No history of heat or cold intolerance, polyuria or polydipsia. EXTREMITIES: Denies joint pain, pain on walking or stiffness. Physical Exam: Vital Signs: Vital Signs Date Time Temp Pulse Resp B/P (MAP) Pulse Ox O2 Delivery O2 Flow Rate FiO2 10/21/21 05:25 64 147/74 (98) 99 Room Air 10/21/21 00:22 98.6 15 98.6 Physcial Exam: General: Well developed, well nourished, no acute distress, well appearing HEENT: Pupils equally round and reactive to light, EOMI, no discharge, normal conjunctiva Neck: Supple, no nuchal rigidity, no JVD, trachea midline, no tenderness Cardiac: RRR, no murmurs, no gallops, no rubs Chest/Lungs: CTAB, no wheeze, no rhonchi, no crackles Abdomen: soft, non-distended, no guarding, no peritoneal signs, non-tender Back: No tenderness Extremities: no edema, pulses intact, non-tender,capillary refill <3 sec bilateral upper and lower extremities, Neuro: Alert and oriented x 4, no focal deficits, normal speech Labs: Labs: Laboratory Tests Test 10/21/21 00:30 10/21/21 00:32 10/21/21 01:54 SARS-CoV-2 Antigen (Rapid) Negative (NEGATIVE) White Blood Count 10.5 x10^3/uL (4.0-11.0) Red Blood Count 4.75 x10^6/uL (3.50-5.40) Hemoglobin 15.5 g/dL (12.0-15.5) Hematocrit 46.1 % (36.0-47.0) Mean Corpuscular Volume 97 fL (79-100) Mean Corpuscular Hemoglobin 33 pg (25-35) Mean Corpuscular Hemoglobin Concent 34 g/dL (31-37) Red Cell Distribution Width 13.9 % (11.5-14.5) Platelet Count 259 x10^3/uL (140-400) Neutrophils (%) (Auto) 62 % (31-73) Lymphocytes (%) (Auto) 27 % (24-48) Monocytes (%) (Auto) 9 % (0-9) Eosinophils (%) (Auto) 1 % (0-3) Basophils (%) (Auto) 1 % (0-3) Neutrophils # (Auto) 6.5 x10^3/uL (1.8-7.7) Lymphocytes # (Auto) 2.8 x10^3/uL (1.0-4.8) Monocytes # (Auto) 0.9 x10^3/uL (0.0-1.1) Eosinophils # (Auto) 0.1 x10^3/uL (0.0-0.7) Basophils # (Auto) 0.1 x10^3/uL (0.0-0.2) Sodium Level 139 mmol/L (136-145) Potassium Level 4.4 mmol/L (3.5-5.1) Chloride Level 102 mmol/L (98-107) Carbon Dioxide Level 29 mmol/L (21-32) Anion Gap 8 (6-14) Blood Urea Nitrogen 17 mg/dL (7-20) Creatinine 0.7 mg/dL (0.6-1.0) Estimated GFR (Cockcroft-Gault) 84.2 BUN/Creatinine Ratio 24 (6-20) Glucose Level 112 mg/dL (70-99) Calcium Level 8.9 mg/dL (8.5-10.1) Magnesium Level 2.4 mg/dL (1.8-2.4) Total Bilirubin 0.3 mg/dL (0.2-1.0) Aspartate Amino Transf (AST/SGOT) 21 U/L (15-37) Alanine Aminotransferase (ALT/SGPT) 32 U/L (14-59) Alkaline Phosphatase 55 U/L (46-116) Troponin I High Sensitivity 22 ng/L (4-50) 26 ng/L (4-50) YG-Xzf-X-Type Natriuretic Peptide 308 pg/mL (0-124) Total Protein 7.7 g/dL (6.4-8.2) Albumin 3.5 g/dL (3.4-5.0) Albumin/Globulin Ratio 0.8 (1.0-1.7) Laboratory Tests Test 10/21/21 00:30 10/21/21 00:32 10/21/21 01:54 SARS-CoV-2 Antigen (Rapid) Negative (NEGATIVE) White Blood Count 10.5 x10^3/uL (4.0-11.0) Red Blood Count 4.75 x10^6/uL (3.50-5.40) Hemoglobin 15.5 g/dL (12.0-15.5) Hematocrit 46.1 % (36.0-47.0) Mean Corpuscular Volume 97 fL (79-100) Mean Corpuscular Hemoglobin 33 pg (25-35) Mean Corpuscular Hemoglobin Concent 34 g/dL (31-37) Red Cell Distribution Width 13.9 % (11.5-14.5) Platelet Count 259 x10^3/uL (140-400) Neutrophils (%) (Auto) 62 % (31-73) Lymphocytes (%) (Auto) 27 % (24-48) Monocytes (%) (Auto) 9 % (0-9) Eosinophils (%) (Auto) 1 % (0-3) Basophils (%) (Auto) 1 % (0-3) Neutrophils # (Auto) 6.5 x10^3/uL (1.8-7.7) Lymphocytes # (Auto) 2.8 x10^3/uL (1.0-4.8) Monocytes # (Auto) 0.9 x10^3/uL (0.0-1.1) Eosinophils # (Auto) 0.1 x10^3/uL (0.0-0.7) Basophils # (Auto) 0.1 x10^3/uL (0.0-0.2) Sodium Level 139 mmol/L (136-145) Potassium Level 4.4 mmol/L (3.5-5.1) Chloride Level 102 mmol/L (98-107) Carbon Dioxide Level 29 mmol/L (21-32) Anion Gap 8 (6-14) Blood Urea Nitrogen 17 mg/dL (7-20) Creatinine 0.7 mg/dL (0.6-1.0) Estimated GFR (Cockcroft-Gault) 84.2 BUN/Creatinine Ratio 24 (6-20) Glucose Level 112 mg/dL (70-99) Calcium Level 8.9 mg/dL (8.5-10.1) Magnesium Level 2.4 mg/dL (1.8-2.4) Total Bilirubin 0.3 mg/dL (0.2-1.0) Aspartate Amino Transf (AST/SGOT) 21 U/L (15-37) Alanine Aminotransferase (ALT/SGPT) 32 U/L (14-59) Alkaline Phosphatase 55 U/L (46-116) Troponin I High Sensitivity 22 ng/L (4-50) 26 ng/L (4-50) AY-Rlw-V-Type Natriuretic Peptide 308 pg/mL (0-124) Total Protein 7.7 g/dL (6.4-8.2) Albumin 3.5 g/dL (3.4-5.0) Albumin/Globulin Ratio 0.8 (1.0-1.7) Images: Images PROCEDURE: CT ANGIOGRAPHY CHEST CT angiography chest with contrast PQRS statement: CT scans at this facility use dose reduction including either automated exposure control, iterative reconstructions, and /or weight based radiation dosing via mA and kV modification when appropriate to reduce radiation dose to as low as reasonably achievable. HISTORY: Chest pain. Back pain. Contrast: 100 mL Omnipaque 350 intravenous contrast and 3-D MIP reconstructions of the arteries of the heart. FINDINGS: Extensive coronary calcified plaque. Moderate calcified plaque thoracic aorta. No aneurysm or dissection of the thoracic aorta. Ascending thoracic aorta diameter is 3.1 cm which is normal. Small liver cysts. 3 cm left renal cyst as well as smaller hypodensities present within the sinus cannot be fully evaluated as a stenosis of the lateral view. Heart size normal. Esophagus is normal. No adenopathy in the chest. There is thinning of the left ventricle apical myocardium which may be due to a chronic infarct. No pulmonary artery emboli. No adenopathy. No mediastinal hematoma. Thoracic disc disease with disc height loss shallow anterior disc osteophytes. Pulmonary emphysema. Trachea and bronchi are unremarkable. No pulmonary opacities. No pleural effusions. IMPRESSION: 1. No acute process. No pulmonary artery emboli. No thoracic aortic aneurysm or dissection. 2. Extensive coronary calcified plaque. There is moderate calcified plaque of the thoracic aorta. 3. Pulmonary emphysema. Assessment/Plan Assessment/Plan Chest pain concerning for unstable angina/NSTEMI COPD History of anxiety History of dyslipidemia History of CAD with stents x3 was on aspirin and Brilinta from last cardiac cath in 2019 History of hypertension JANEEN = 4 HEART score of 3 EKG showing no acute ST elevations Troponin negative x3 Continue aspirin Will defer to cardiology for DAPT Cardiology consulted Continue nitroglycerin as needed for pain Continue beta-juan if blood pressures allow Continue high intensity statins IV morphine as needed Consider Lovenox Maintain O2 sats between 88 to 95% Trend troponins Repeat EKG in the a.m. Continue telemetry monitoring Monitor for electrolyte abnormalities Avoid NSAIDs Justifications for Admission Other Justification ALEXANDRA KATHLEEN MD Oct 21, 2021 08:31
[2021-10-21] MEDS ORDERED: ATORVASTATIN CALCIUM 40 MG TABLET. PO SCH (09:00)
[2021-10-21] MEDS ORDERED: LISINOPRIL 5 MG TABLET. PO SCH (09:00)
[2021-10-21] MEDS ORDERED: CARVEDILOL 3.125 MG TABLET. PO SCH (09:00)
--- NOTE | 2021-10-21 12:11 | PDOC2 ---
DEBBIE SUAREZ DROP WIRER 10/21/21 1211: CARDIAC CONSULT DATE OF CONSULT Date of Consult DATE: 10/21/21 TIME: 12:01 REASON FOR CONSULT Reason for Consult: Chest pain REFERRING PHYSICIAN Referring Physician: Katerine SOURCE Source: Chart review, Patient HISTORY OF PRESENT ILLNESS HISTORY OF PRESENT ILLNESS This is a pleasant 66 yo female admitted for complains of left shoulder pain. This started upper left chest then radiated to upper left back which eventfully got relieved and has not recurred since dilaudid was given. This woke her up at night but did not take any analgesic for it at home. It was intense describing it as a stabbing dull pain. No jaw tightness, SOA, sternal chest pain and no nausea vomiting, fever or chills. No flu like symptoms. She was taking care of her granddaughter yesterday and was lifting her up in the tub and rotated her body to the side otherwise no falls or any MVA or recent injury. Denies any palpitations and has not been having any exertional chest pain or NGUYEN. She stuart nues to smoke tobacco but has been compliant with her medications. PAST MEDICAL HISTORY Past Medical History Cardiovascular: CAD, CHF, HTN, [place], Hyperlipidemia, Other (carotid stenosis, LAD thrombus ) GI: GERD Psych: Anxiety PAST SURGICAL HISTORY Past Surgical History Total hip replacement, Hysterectomy, Other (right carotid endarterectomy ) FAMILY HISTORY Family History Coronary Artery Disease, Heart Disease, Hypertension SOCIAL HISTORY Social History Smoke: <1 pack per day ALCOHOL: none Drugs: None Lives: with Family CURRENT MEDICATIONS CURRENT MEDICATIONS Current Medications Medications (Trade) Dose Ordered Sig/Luci Route PRN Reason Start Time Stop Time Status Last Admin Dose Admin Morphine Sulfate (Morphine Sulfate) 4 mg PRN Q2HR PRN IV SEVERE PAIN 7-10 10/21/21 00:45 10/21/21 02:00 DC 10/21/21 00:38 Nitroglycerin/ Dextrose 250 ml @ 1.5 mls/hr 1X ONCE IV 10/21/21 01:00 10/27/21 23:39 10/21/21 00:55 Ondansetron HCl (Zofran) 4 mg PRN Q8HRS PRN IVP NAUSEA/VOMITING 1ST CHOICE 10/21/21 01:15 10/22/21 01:14 10/21/21 08:25 Morphine Sulfate (Morphine Sulfate) 4 mg PRN Q2HR PRN IVP SEVERE PAIN 7-10 10/21/21 01:15 10/22/21 01:14 10/21/21 08:26 Hydromorphone HCl (Dilaudid) 1 mg 1X ONCE IVP 10/21/21 02:30 10/21/21 02:31 DC 10/21/21 02:58 Iohexol (Omnipaque 350 Mg/ml) 100 ml 1X ONCE IV 10/21/21 03:00 10/21/21 03:01 DC 10/21/21 02:57 Atorvastatin Calcium (Lipitor) 40 mg DAILY PO 10/21/21 09:00 10/21/21 09:07 Carvedilol (Coreg) 3.125 mg BIDWMEALS PO 10/21/21 09:00 10/21/21 09:08 Lisinopril (Prinivil) 5 mg DAILY PO 10/21/21 09:00 10/21/21 09:09 ALLERGIES ALLERGIES: Coded Allergies: naproxen (Verified Adverse Reaction, Mild, Nausea and Vomiting, 08/02/19) ROS Review of System 14 point ROS evaluated with pertinent positives noted per HPI PHYSICAL EXAM General: Alert, Oriented X3, Cooperative, No acute distress HEENT: Atraumatic, Mucous membr. moist/pink Lungs: Clear to auscultation, Normal air movement Heart: Regular rate (SR), Normal S1, Normal S2, No murmurs Abdomen: Soft, No tenderness Extremities: No cyanosis, No edema Skin: No breakdown, No significant lesion Neuro: Normal speech, Sensation intact Psych/Mental Status: Mental status NL, Mood NL MUSCULOSKELETAL: Osteoarthritic changes both hands VITALS/I&O VITALS/I&O: Vital Signs Date Time Temp Pulse Resp B/P (MAP) Pulse Ox O2 Delivery O2 Flow Rate FiO2 10/21/21 09:25 70 21 133/64 (87) 94 Room Air 10/21/21 08:25 98.6 98.6 LABS Lab: Laboratory Tests Test 10/21/21 00:30 10/21/21 00:32 10/21/21 01:54 SARS-CoV-2 RNA (MAR) Negative (Negative) SARS-CoV-2 Antigen (Rapid) Negative (NEGATIVE) White Blood Count 10.5 x10^3/uL (4.0-11.0) Red Blood Count 4.75 x10^6/uL (3.50-5.40) Hemoglobin 15.5 g/dL (12.0-15.5) Hematocrit 46.1 % (36.0-47.0) Mean Corpuscular Volume 97 fL (79-100) Mean Corpuscular Hemoglobin 33 pg (25-35) Mean Corpuscular Hemoglobin Concent 34 g/dL (31-37) Red Cell Distribution Width 13.9 % (11.5-14.5) Platelet Count 259 x10^3/uL (140-400) Neutrophils (%) (Auto) 62 % (31-73) Lymphocytes (%) (Auto) 27 % (24-48) Monocytes (%) (Auto) 9 % (0-9) Eosinophils (%) (Auto) 1 % (0-3) Basophils (%) (Auto) 1 % (0-3) Neutrophils # (Auto) 6.5 x10^3/uL (1.8-7.7) Lymphocytes # (Auto) 2.8 x10^3/uL (1.0-4.8) Monocytes # (Auto) 0.9 x10^3/uL (0.0-1.1) Eosinophils # (Auto) 0.1 x10^3/uL (0.0-0.7) Basophils # (Auto) 0.1 x10^3/uL (0.0-0.2) Sodium Level 139 mmol/L (136-145) Potassium Level 4.4 mmol/L (3.5-5.1) Chloride Level 102 mmol/L (98-107) Carbon Dioxide Level 29 mmol/L (21-32) Anion Gap 8 (6-14) Blood Urea Nitrogen 17 mg/dL (7-20) Creatinine 0.7 mg/dL (0.6-1.0) Estimated GFR (Cockcroft-Gault) 84.2 BUN/Creatinine Ratio 24 (6-20) H Glucose Level 112 mg/dL (70-99) H Calcium Level 8.9 mg/dL (8.5-10.1) Magnesium Level 2.4 mg/dL (1.8-2.4) Total Bilirubin 0.3 mg/dL (0.2-1.0) Aspartate Amino Transferase (AST) 21 U/L (15-37) Alanine Aminotransferase (ALT) 32 U/L (14-59) Alkaline Phosphatase 55 U/L (46-116) Troponin I High Sensitivity 22 ng/L (4-50) 26 ng/L (4-50) FP-[id number]-Type Natriuretic Peptide 308 pg/mL (0-124) H Total Protein 7.7 g/dL (6.4-8.2) Albumin 3.5 g/dL (3.4-5.0) Albumin/Globulin Ratio 0.8 (1.0-1.7) L Laboratory Tests 10/21/21 00:32 Laboratory Tests 10/21/21 00:32 ASSESSMENT/PLAN ASSESSMENT/PLAN 1. Atypical CP: suspect MSK 2. COPD with continued tobaccoism 3. HTN: controlled 4. HLP 5. CAD: past PCI, clinically stable Recommendations 1. Continue secondary prevention measures 2. Continue ASA and low dose xarelto 3. Smoking cessation 4. Analgesic per PCP 5. Outpt MPI as scheduled. Home today AMAYA ADAIR MD 10/21/21 1516: CARDIAC CONSULT ASSESSMENT/PLAN ASSESSMENT/PLAN Chest pain with atypical features and most probably musculoskeletal. Myocardial infarction has been ruled out. Plan for outpatient ischemic evaluation as previously scheduled. Continue current medical regimen. Thank you for your consultation DEBBIE SUAREZ APRN Oct 21, 2021 12:11 AMAYA ADAIR MD Oct 21, 2021 15:16
[2021-10-21 12:55] VITALS: BP 124/85
--- NOTE | 2021-10-22 13:17 | DS ---
DATE OF DISCHARGE: 10/21/2021 HOSPITAL SUMMARY: The patient came in with somewhat atypical chest pain with prior history of cardiac disease. Laboratory studies and troponin levels were unremarkable as well as her chest x-ray and D-dimer. She was seen by [employer] security consultant and was felt to be a noncardiac source of pain likely musculoskeletal and she was discharged by phone at her request from the ER for she was actually transferred to room. I did not examine the patient during this short stay and no physical examination will be dictated as such. FINAL DIAGNOSIS: Noncardiac chest pain. OPERATIONS, PROCEDURES, COMPLICATIONS: None. CONSULTATIONS: Dr. Brice's group. DISPOSITION: Home meds will remain the same. Follow up as needed. JOHN/ABISAI/MARGIE DR: JOHN/teodoro TID: [id number]
--- NOTE | 2021-10-28 11:21 | SSS ---
DATE OF SERVICE: 10/22/2021 ADMIT DATE: 10/21/2021 HOSPITAL SUMMARY: The patient came in with somewhat atypical chest pain with prior history of cardiac disease. Laboratory studies and troponin levels were unremarkable as well as her chest x-ray and D-dimer. She was seen by seo consultant and was felt to be a noncardiac source of pain likely musculoskeletal and she was discharged by phone at her request from the ER for she was actually transferred to room. I did not examine the patient during this short stay and no physical examination will be dictated as such. FINAL DIAGNOSIS: Noncardiac chest pain. OPERATIONS, PROCEDURES, COMPLICATIONS: None. CONSULTATIONS: Dr. Brice's group. DISPOSITION: Home meds will remain the same. Follow up as needed. JOHN/ABISAI/MARGIE DR: JOHN/teodoro TID: [id number]
== END 2021-10-21 13:56 | disposition home or self-care (01) | DRG 313 ==
LOC: ER 00:22 → ED HOLD 05:33
PROVIDERS: ADMIT Internal Medicine; ATTEND Internal Medicine
DX: R07.89 Other chest pain (principal); E78.00 Pure hypercholesterolemia, unspecified; E78.5 Hyperlipidemia, unspecified; F17.210 Nicotine dependence, cigarettes, uncomplicated; I11.0 Hypertensive heart disease with heart failure; I25.10 Atherosclerotic heart disease of native coronary artery without angina pectoris; I25.2 Old myocardial infarction; I50.9 Heart failure, unspecified; J44.9 Chronic obstructive pulmonary disease, unspecified; Z82.49 Family history of ischemic heart disease and other diseases of the circulatory system; Z95.5 Presence of coronary angioplasty implant and graft; Z90.710 Acquired absence of both cervix and uterus; Z96.649 Presence of unspecified artificial hip joint; F41.9 Anxiety disorder, unspecified; G43.909 Migraine, unspecified, not intractable, without status migrainosus; K21.9 Gastro-esophageal reflux disease without esophagitis
CPT/HCPCS: 36415; 51702; 71045; 71275; 80053; 83735; 83880; 84484; 85025; 87426; 93005; 96365; 96366; 96375; 96376; J1170; J2270; J2405; J3490; Q9967; U0003; U0005; 99285-25

== ENCOUNTER → 2021-11-30 | Outpatient (CLI) | payer OTHER ==
--- NOTE | 2021-11-30 17:02 | RAD ---
Bilateral digital screening 2-D and 3-D (digital breast tomosynthesis) mammogram: Reason for examination: Routine screening. Comparison: Mammograms from 09/01/2020 and 01/09/2019. Interpretation was made with the benefit of CAD. FINDINGS: Breast density: Category B. There are scattered areas of fibroglandular density. No suspicious breast mass, malignant appearing calcifications, or architectural distortion is seen. T here are very small oval circumscribed masses in both breasts which are unchanged. Again seen is a bi opsy marker in the left outer breast. IMPRESSION: No evidence of malignancy. Assessment: BI-RADS 2. Benign findings. Recommendation: Routine screening mammograms. The patient will receive a letter with the results in the mail. Patient information will be entered i nto the mammography reminder system with a target recall date for the next mammogram. A reminder everett er will be generated. Electronically signed by: Daniela Cooley MD (11/30/2021 4:59 PM) [id number]
== END ==
LOC: MAMMO 12:54
PROVIDERS: ATTEND Family Medicine
DX: Z12.31 Encounter for screening mammogram for malignant neoplasm of breast (principal)
CPT/HCPCS: 77063; 77067

== ENCOUNTER → 2021-12-28 | Outpatient (CLI) | payer OTHER ==
[~2021-12-28] MED LIST changes: +IOHEXOL 300 MG/ML 100ML VIAL. IV ONE
--- NOTE | 2021-12-28 09:35 | RAD ---
Examination: CT of the abdomen and pelvis without and with IV contrast HISTORY: History of hematuria,, cystitis COMPARISON: 03/22/2019 TECHNIQUE: Axial CT images of the abdomen pelvis were performed without and with IV contrast. Coronal and sagittal reformats identified. Exposure: One or more of the following individualized dose reduction techniques were utilized for thi s examination: 1. Automated exposure control 2. Adjustment of the mA and/or kV according to patient size 3. Use of iterative reconstruction technique FINDINGS: Partially visualized moderate bilateral lung emphysematous changes. No evidence of free air identifie d in the abdomen Multiple cystic structures identified in the liver with the largest measuring 1.2 cm in the right lob e likely cysts. The spleen, adrenals grossly appears unremarkable. The gallbladder is mildly distende d. The stomach is mildly distended with visualized pancreas grossly appears unremarkable. The small b owel is nondilated. Feces and gas noted in the colon Multiple cystic structures identified in the bilateral kidneys with the largest measuring 4.8 cm in t he left kidney likely cysts. There is a new cystic structure measuring 1.6 cm in the left kidney and measuring 21 Hounsfield units could be slightly hyperdense cyst or hypodense mass. Urinary bladder is mildly distended. Moderate thickened appearance of the wall of the urinary bladder. However evaluati on the pelvis and the urinary bladder is limited due to streak artifact from bilateral hip prosthesis . Moderate degenerative changes lumbar spine. Moderate atherosclerotic calcifications identified in t he abdominal aorta with mild aneurysmal change abdominal aorta IMPRESSION: 1. Moderate thickened appearance of the wall of the urinary bladder could be due to nondistention or cystitis or mucosal pathology such as neoplasm is not excluded.. Consider cystoscopic evaluation. Ho wever evaluation the pelvis and the urinary bladder is limited due to streak artifact from bilateral hip prosthesis. 2. Bilateral renal cysts. There is a new cystic structure measuring 1.6 cm in the left kidney and me asuring 21 Hounsfield units could be slightly hyperdense cyst or hypodense mass. Follow-up nonemergen t ultrasound kidneys or MRI can be considered. 3. Multiple cystic structures identified in the liver with the largest measuring 1.2 cm in the right lobe likely cysts. Electronically signed by: Nico Lazar MD (12/28/2021 9:32 AM) [id number]
== END ==
LOC: CT 07:31
PROVIDERS: ATTEND Urology
DX: N28.1 Cyst of kidney, acquired (principal); K76.81 Hepatopulmonary syndrome; N32.89 Other specified disorders of bladder; I71.4 Abdominal aortic aneurysm, without rupture; K82.8 Other specified diseases of gallbladder; N20.0 Calculus of kidney; R31.29 Other microscopic hematuria
CPT/HCPCS: 74178; Q9967

== ENCOUNTER → 2021-12-29 | Outpatient (CLI) | payer OTHER ==
[~2021-12-29] MED LIST changes: -IOHEXOL 300 MG/ML 100ML VIAL. IV ONE; +REGADENOSON 0.4 MG/5 ML DISP.SYRIN. IV ONE
--- NOTE | 2021-12-30 11:44 | RAD ---
MR#: [id number] Date of Study: 12/29/2021 Ordering Physician: AMAYA ADAIR, Referring Physician: PHILIPPE ROSA Tech: RT Mejia CobosR) (N) APPROVED REPORT Test Type: Pharmacological Stress Nurse/Tech: Zee Brambila RN Test Indications: CAD Cardiac History: Hypertension,smoker,3 stents,TIA Medications: See Electronic Medical Record Medical History: See Electronic Medical Record Resting ECG: SR with BBB Resting Heart Rate: 67 bpm Resting Blood Pressure: 149/65mmHg Pretest Chest Pain: No chest pain Nurse/Tech Notes S1,S2 and lungs diminished throughout. Consent: The procedure was explained to the patient in lay terms. Informed consent was witnessed. Gigi eout was entered into [employer]. History and Stress Test performed by RT Papito (R) (N) Pharm. Details Pharmacologic stress testing was performed using 0.4mg per 5ml of regadenoson given intravenously ove r 7-10 seconds. Stress Symptoms Nausea POST EXERCISE Reason for Termination: Infusion complete Target HR: No Max HR: 112 bpm 84% of Maximum Predicted HR: 132 bpm Max Blood Pressure: 153/70mmHg Blood Pressure response to exercise: Normal blood pressure response during stress. Heart Rate response to exercise: WNL Chest Pain: No. Arrhythmia: No. ST Change: No. INTERPRETATION Stress EKG Conclusion: No acute ischemic changes. Imaging Protocol IMAGE PROTOCOL: Rest Tc-99m/stress Tc-99m 1 day Rest: Stress: Viability: Radiopharm.Tc99m [id number] Sestamibi Dose10.2mCi 31mCi Duration 13min. 13min. Img Date 12/29/2021 12/29/2021 Inj-Img [id number]. 60min. Rest Admin Site:IV - Left AntecubitalAdministrator:RT Papito (R)(N) Stress Admin Site: IV - Left AntecubitalAdministrator: RT Papito (Adalgisa)(N) STRESS DATA End Diast. Vol.137.0mlLVEDV index BSA75.0ml End Syst. Vol.55.0mlLVESV index BSA30.0ml Myocardial Fffr045.0gEject. Mqhrgxnv84.0% Stress Scores Regional WT2.00Summed WT29.00 Regional WM0.00Summed WM7.00 LV Perfusion There is a large mid to distal anterior, apical FIXED defect suggestive of prior LAD territory infarc t. Based on defect tracer uptake on rest images, this defect is non-viable. Wall Motion Grossly normal wall motion with an EF of 60%, likely over estimated on this study. LV Perf. Quant 17 Seg. SSS28.00 17 Seg. SRS25.00 17 Seg. SDS3.00 Stress Defect Extent (% LAD)70.00Rest Defect Extent (% LAD)68.80Rev. Defect Extent (% LAD)10.60 Stress Defect Extent (% LCX) 27.50Rest Defect Extent (% LCX)16.30Rev. Defect Extent (% LCX)18.80 Stress Defect Extent (% RCA)30.00Rest Defect Extent (% RCA)35.60Rev. Defect Extent (% RCA)0.00 Stress Defect Extent (% ELOISA)51.70Rest Defect Extent (% ELOISA)49.80Rev. Defect Extent (% ELOISA)15.00 Other Information Quality:Average Risk Assessment: High Risk Conclusion 1. Abnormal baseline EKG with LBBB. No evidence of stress induced EKG changes. 2. Large LAD territory FIXED perfusion defect suggestive of prior infarct. No active ischemia. 3. Normal LV function. EF 60%, likely over estimated on this study. 4. Moderate risk for future CV events due to large territory of prior myocardial infarct. Signed by : Alessandro Granda, Electronically Approved : 12/30/2021 11:43:54
== END ==
LOC: NM 08:57
PROVIDERS: ATTEND Internal Medicine Cardiovascular Disease
DX: R94.31 Abnormal electrocardiogram [ECG] [EKG] (principal); I44.7 Left bundle-branch block, unspecified; I25.10 Atherosclerotic heart disease of native coronary artery without angina pectoris
CPT/HCPCS: 78452; 93017; A9500; J2785